=== PATIENT | male | born 1940 | race Caucasian/White ===

== ENCOUNTER 2018-01-10 17:35 | Inpatient (IN) | payer OTHER ==
--- NOTE | 2018-01-10 17:57 | HP ---
CIWA Score Nausea/Vomitin-Mild Nausea/No Vomiting Muscle Tremors: 5 Anxiety: 2 Agitation: 1-Slight > Activity Paroxysmal Sweats: 1-Minimal Palms Moist Orientation: 0-Oriented Tacttile Disturbances: 0-None Auditory Disturbances: 0-None Visual Disturbances: 0-None Headache: 5-Severe CIWA-Ar Total Score: 15 - Admission Criteria OASAS Guidelines: Admission for Medically Managed Detox: Requires at least one of the followin. CIWA greater than 12 2. Seizures within the past 24 hours 3. Delirium tremens within the past 24 hours 4. Hallucinations within the past 24 hours 5. Acute intervention needed for co occurring medical disorder 6. Acute intervention needed for co occurring psychiatric disorder 7. Severe withdrawal that cannot be handled at a lower level of care (continued vomiting, continued diarrhea, abnormal vital signs) requiring intravenous medication and/or fluids 8. Patient presents the following: CIWA greater than 12 Admission Criteria Met: Admission criteria met Admission ROS [facility] Chief Complaint: Pt here for alcohol detox Allergies/Adverse Reactions: Allergies Allergy/AdvReac Type Severity Reaction Status Date / Time No Known Allergies Allergy Verified 01/10/18 18:16 History of Present Illness: Pt states has been living the streets of [place] or in a half-way. Someone called the ambulance and was taken to [facility]. He was given a dose of librium and sent here. Pt states he does not use any illicit substances. Says he gets SSI check at a half-way in [facility]. Uses it for alcohol. Drinks more than a pint a day. Pt does not know of any medical problems and does not take any medications. PT denies allergies. Pt states he is originally from [place], has been living here for 20 years. His family all lives there and has no family here. DUR- no controlled substances KRYSTAL- 0- last drink yesterday and was at [facility] and rec'd librium Utox: Bar pos, rest negative Exam Limitations: Dementia (pt is a poor historian, age 77) - Ebola screening Have you traveled outside of the country in the last 21 days: No (N) Have you had contact with anyone from an Ebola affected area: No Do you have a fever: No - Review of Systems Constitutional: No Symptoms Reported EENT: reports: No Symptoms Reported Respiratory: reports: No Symptoms reported Cardiac: reports: No Symptoms Reported GI: reports: No Symptoms Reported : reports: No Symptoms Reported Musculoskeletal: reports: No Symptoms Reported Integumentary: reports: No Symptoms Reported Neuro: reports: No Symptoms reported Endocrine: reports: No Symptoms Reported Hematology: reports: No Symptoms Reported Psychiatric: reports: No Sypmtoms Reported Patient History - Patient Medical History Hx Anemia: No Hx Asthma: Yes Hx Chronic Obstructive Pulmonary Disease (COPD): No Hx Cancer: No Hx Cardiac Disorders: No Hx Congestive Heart Failure: No Hx Hypertension: No Hx Hypercholesterolemia: No Hx Pacemaker: No HX Cerebrovascular Accident: No Hx Seizures: No Hx Dementia: No Hx Diabetes: No Hx Gastrointestinal Disorders: No Hx Liver Disease: No Hx Genitourinary Disorders: No Hx Sexually Transmitted Disorders: No Hx Renal Disease (ESRD): No Hx Thyroid Disease: No Hx Human Immunodeficiency Virus (HIV): No Hx Hepatitis C: No Hx Depression: No Hx Suicide Attempt: No Hx Bipolar Disorder: No Hx Schizophrenia: No - Patient Surgical History Hx Neurologic Surgery: No Hx Cataract Extraction: No Hx Cardiac Surgery: No Hx Lung Surgery: No Hx Breast Surgery: No Hx Breast Biopsy: No Hx Abdominal Surgery: No Hx Appendectomy: No Hx Cholecystectomy: No Hx Genitourinary Surgery: No Hx Section: No Hx Orthopedic Surgery: No Hx Hysterectomy: No Anesthesia Reaction: No - PPD History Previous Implant?: No - Smoking Cessation Smoking history: Current some day smoker Have you smoked in the past 12 months: Yes Aproximately how many cigarettes per day: 1 Hx Chewing Tobacco Use: No Initiated information on smoking cessation: No 'Breaking Loose' booklet given: 01/10/18 - Substance & Tx. History Substance Use Type: Alcohol Hx Substance Use Treatment: No - Substances Abused Alcohol Route: Oral Frequency: Daily Amount used: LIQUOR- 3 PINTS, BEER- 1 SIX PACK Age of first use: 42 Date of Last Use: 01/10/18 Family Disease History - Family Disease History Family History: Unable to Obtain (unable to obtain- family in [facility]) Admission Physical Exam S - Physical General Appearance: Yes: Disheveled, Moderate Distress, Cachetic, Tremorous HEENTM: Yes: Hearing grossly Normal, Normal ENT Inspection Respiratory: Yes: Within Normal Limits Neck: Yes: Within Normal Limits Cardiology: Yes: Within Normal Limits Abdominal: Yes: Within Normal Limits, Protuberent Genitourinary: Yes: Within Normal Limits, Other (with red macular papular itchy lesions in groin area- c/w tinea) Back: Yes: Within Normal Limits Musculoskeletal: Yes: Other (gait seems unsteady, but pt is able to walk without assistance) Extremities: Yes: Within Normal Limits Neurological: Yes: Other (slow response, does not know much about history)
[2018-01-10] MEDS ORDERED: ACETAMINOPHEN 325 MG TABLET (FP) PO PRN (18:17)
[2018-01-10] MEDS ORDERED: hydrOXYzine PAMOATE 50 MG CAPSULE (FP) PO PRN (18:17)
[2018-01-10] MEDS ORDERED: MENTHOL/PHENOL 1 EACH UD MM PRN (18:17)
[2018-01-10] MEDS ORDERED: MAGNESIUM CITRATE 300 ML BOTTLE PO PRN (18:17)
[2018-01-10] MEDS ORDERED: P-EPHED 60MG/TRIPROLIDI 2.5MG TABLET PO PRN (18:17)
[2018-01-10] MEDS ORDERED: IBUPROFEN 400 MG TABLET (FP) PO PRN (18:17)
[2018-01-10] MEDS ORDERED: MAGNESIUM HYDROX 2400MG/30ML ORAL SUSPENSION 30 ML CUP PO PRN (18:17)
[2018-01-10] MEDS ORDERED: guaiFENesin/D-METHORPHAN HB 10 ML UNIT-DOSE CUPS PO PRN (18:17)
[2018-01-10] MEDS ORDERED: LOPERAMIDE HCL 2 MG CAPSULE PO PRN (18:17)
[2018-01-10] MEDS ORDERED: MAG HYDROX/AL HYDROX/SIMETH 30 ML UNIT-DOSE CUP PO PRN (18:17)
[2018-01-10] MEDS ORDERED: chlordiazePOXIDE HCL 25 MG CAPSULE PO ONE (18:26)
[2018-01-10] MEDS ORDERED: chlordiazePOXIDE HCL 25 MG CAPSULE PO PRN (18:26)
[2018-01-10 18:29] VITALS: BMI 28.3
[2018-01-10] MEDS ORDERED: MELATONIN 5 MG TABLETS PO PRN (22:00)
[2018-01-10] MEDS: CLOTRIMAZOLE/BETAMET DIPROP TOPICAL CREAM 45 GM TUBE TP SCH (22:15)
[2018-01-10] MEDS: THIAMINE HCL 100 MG TABLET (FP) PO SCH (22:15)
[2018-01-10] MEDS: chlordiazePOXIDE HCL 25 MG CAPSULE PO SCH (22:15)
[2018-01-10] MEDS: CLOTRIMAZOLE 1% CREAM 15 GM TUBE TP SCH (22:16)
[2018-01-11] MEDS: chlordiazePOXIDE HCL 25 MG CAPSULE PO SCH ×3 (06:25→17:25)
[2018-01-11 10:30] LABS: HEMATOCRIT 28.6 % (35.4-49); HEMOGLOBIN 10.1 GM/dL (11.7-16.9); MCH 38.3 pg (25.7-33.7); MCHC 35.3 g/dl (32.0-35.9); MEAN CELL VOLUME 108.3 fl (80-96); MEAN PLT VOLUME 9.6 fl (7.5-11.1); PLATELET COUNT 100 K/MM3 (134-434); RBC 2.64 M/mm3 (4.00-5.60); RDW 15.7 % (11.9-15.9); WHITE BLOOD COUNT 5.9 K/mm3 (4.0-10.0)
[2018-01-11] MEDS: CLOTRIMAZOLE/BETAMET DIPROP TOPICAL CREAM 45 GM TUBE TP SCH ×2 (10:53→22:46)
[2018-01-11] MEDS: CLOTRIMAZOLE 1% CREAM 15 GM TUBE TP SCH ×2 (10:53→22:46)
[2018-01-11] MEDS: PRENATAL VITAMINS W/ FOLIC ACID TABLET (FP) PO SCH (10:53)
--- NOTE | 2018-01-11 11:19 | PN ---
S CIWA - CIWA Score Nausea/Vomitin-Mild Nausea/No Vomiting Muscle Tremors: 3 Anxiety: 3 Agitation: 3 Paroxysmal Sweats: No Perspiration Orientation: 0-Oriented Tacttile Disturbances: 0-None Auditory Disturbances: 0-None Visual Disturbances: 0-None Headache: 2-Mild CIWA-Ar Total Score: 12 BHS Progress Note (SOAP) Subjective: PATIENT C/O ANXIETY, RESTLESSNESS, SHAKES, INTERRUPTED SLEEP AND MILD NAUSEA. Objective: 01/11/18 11:17 Laboratory Tests 01/11/18 07:30 WBC 5.9 RBC 2.64 L Hgb 10.1 L Hct 28.6 L MCV 108.3 H MCH 38.3 H MCHC 35.3 RDW 15.7 Plt Count 100 L MPV 9.6 Vital Signs Temperature 96.0 F L 01/11/18 10:04 Pulse Rate 90 01/11/18 10:04 Respiratory Rate 17 01/11/18 10:04 Blood Pressure 104/52 L 01/11/18 10:04 O2 Sat by Pulse Oximetry (%) PE: ALERT AND ORIENTED X 3 PATIENT IRRITABLE AND ANXIOUS EXT FULL ROM, +TREMORS, AMB AD RASHARD ANXIOUS Assessment: 01/11/18 11:18 WITHDRAWAL SX Plan: CONTINUE DETOX ENCOURAGE ORAL FLUIDS ADD ENSURE 120ML PO BID CONTINUE TO MONITOR
[2018-01-11 11:43] LABS: ALBUMIN 2.5 g/dl (3.4-5.0); ALK PHOS 285 U/L (45-117); ANION GAP 14 MMOL/L (8-16); BILIRUBIN,TOTAL 7.3 mg/dL (0.2-1); BLOOD UREA NITROGEN 16 mg/dL (7-18); CHLORIDE 104 mmol/L (98-107); CO2 24 mmol/L (21-32); CREATININE 0.7 mg/dL (0.55-1.3); GLUCOSE,RANDOM 69 mg/dL (74-106); SGOT/AST 290 U/L (15-37); SGPT/ALT 85 U/L (13-61); SODIUM 141 mmol/L (136-145); TOT PROT 5.2 g/dl (6.4-8.2)
[2018-01-11 11:46] LABS: POTASSIUM 2.9 mmol/L (3.5-5.1)
[2018-01-11 11:47] LABS: CALCIUM 6.5 mg/dL (8.5-10.1)
[2018-01-11] MEDS: CALCIUM 500MG/VIT-D 200 UNITS COMBO TABLET (FP) PO SCH ×2 (13:00→22:45)
[2018-01-11] MEDS: POTASSIUM CHLORIDE TABS 20 MEQ TABLET.ER (FP) PO SCH (13:00)
[2018-01-11 21:24] LABS: URINE APPEARANCE TURBID; URINE COLOR RED; URINE GLUCOSE (UA) NEGATIVE (NEGATIVE); URINE KETONE TRACE (NEGATIVE); URINE LEUK ESTERASE NEGATIVE (NEGATIVE); URINE NITRITE NEGATIVE (NEGATIVE); URINE PROTEIN 2+ (NEGATIVE); URINE UROBILINOGEN 4.0 E.U/dl mg/dL (0.2-1.0)
[2018-01-11 21:37] LABS: EPI CELLS RARE /HPF (FEW); URINE BACTERIA RARE /hpf (NONE SEEN); URINE MUCUS RARE
[2018-01-11] MEDS: chlordiazePOXIDE 5 MG CAPSULE PO SCH (22:45)
[2018-01-11] MEDS: THIAMINE HCL 100 MG TABLET (FP) PO SCH (22:46)
[2018-01-11] MEDS ORDERED: chlordiazePOXIDE HCL 25 MG CAPSULE PO SCH ×2 (23:00)
[2018-01-12] MEDS: chlordiazePOXIDE 5 MG CAPSULE PO SCH ×4 (06:28→22:41)
[2018-01-12] MEDS: CLOTRIMAZOLE 1% CREAM 15 GM TUBE TP SCH ×2 (10:55→22:40)
[2018-01-12] MEDS: POTASSIUM CHLORIDE TABS 20 MEQ TABLET.ER (FP) PO SCH (10:55)
[2018-01-12] MEDS: CALCIUM 500MG/VIT-D 200 UNITS COMBO TABLET (FP) PO SCH ×2 (10:55→22:41)
[2018-01-12] MEDS: CLOTRIMAZOLE/BETAMET DIPROP TOPICAL CREAM 45 GM TUBE TP SCH ×2 (10:55→22:40)
[2018-01-12] MEDS: PRENATAL VITAMINS W/ FOLIC ACID TABLET (FP) PO SCH (10:55)
[2018-01-12 11:01] LABS: ALBUMIN 2.3 g/dl (3.4-5.0); ALK PHOS 261 U/L (45-117); ANION GAP 9 MMOL/L (8-16); BILIRUBIN,TOTAL 6.9 mg/dL (0.2-1); BLOOD UREA NITROGEN 11 mg/dL (7-18); CALCIUM 7.1 mg/dL (8.5-10.1); CHLORIDE 104 mmol/L (98-107); CO2 29 mmol/L (21-32); CREATININE 0.8 mg/dL (0.55-1.3); GLUCOSE,RANDOM 97 mg/dL (74-106); POTASSIUM 3.2 mmol/L (3.5-5.1); SGOT/AST 261 U/L (15-37); SGPT/ALT 83 U/L (13-61); SODIUM 142 mmol/L (136-145)
--- NOTE | 2018-01-12 11:24 | PN ---
S CIWA - CIWA Score Nausea/Vomitin-No Nausea/No Vomiting Muscle Tremors: 3 Anxiety: 3 Agitation: 3 Paroxysmal Sweats: No Perspiration Orientation: 0-Oriented Tacttile Disturbances: 0-None Auditory Disturbances: 0-None Visual Disturbances: 0-None Headache: 2-Mild CIWA-Ar Total Score: 11 S Progress Note (SOAP) Subjective: PT SEEN IN BED BUT REPORTS HEADACHE. Objective: 01/12/18 11:22 Vital Signs 01/12/18 01/12/18 01/12/18 03:30 06:26 09:40 Temperature 97.2 F L 98.7 F Pulse Rate 83 86 Respiratory 18 18 18 Rate Blood Pressure 119/61 127/59 L Laboratory Tests 01/10/18 01/11/18 01/11/18 23:20 07:30 07:30 WBC 5.9 RBC 2.64 L Hgb 10.1 L Hct 28.6 L MCV 108.3 H MCH 38.3 H MCHC 35.3 RDW 15.7 Plt Count 100 L MPV 9.6 Sodium 141 Potassium 2.9 L* Chloride 104 Carbon Dioxide 24 Anion Gap 14 BUN 16 Creatinine 0.7 Creat Clearance w eGFR > 60 Random Glucose 69 L Calcium 6.5 L* Total Bilirubin 7.3 H AST 290 H ALT 85 H Alkaline Phosphatase 285 H Total Protein 5.2 L Albumin 2.5 L Urine Color Red Urine Appearance Turbid Urine pH 5.0 Ur Specific [place] 1.024 Urine Protein 2+ H Urine Glucose (UA) Negative Urine Ketones Trace H Urine Blood Negative Urine Nitrite Negative Urine Bilirubin 4.0 Urine Urobilinogen 4.0 e.u/dl Ur Leukocyte Esterase Negative Urine WBC (Auto) 1 Urine RBC (Auto) 1 Ur Epithelial Cells Rare Urine Bacteria Rare Urine Mucus Rare 01/12/18 07:50 WBC RBC Hgb Hct MCV MCH MCHC RDW Plt Count MPV Sodium 142 Potassium 3.2 L Chloride 104 Carbon Dioxide 29 Anion Gap 9 BUN 11 Creatinine 0.8 Creat Clearance w eGFR > 60 Random Glucose 97 Calcium 7.1 L Total Bilirubin 6.9 H AST 261 H ALT 83 H Alkaline Phosphatase 261 H Total Protein 5.0 L Albumin 2.3 L Urine Color Urine Appearance Urine pH Ur Specific [place] Urine Protein Urine Glucose (UA) Urine Ketones Urine Blood Urine Nitrite Urine Bilirubin Urine Urobilinogen Ur Leukocyte Esterase Urine WBC (Auto) Urine RBC (Auto) Ur Epithelial Cells Urine Bacteria Urine Mucus LABS NOTED Assessment: 01/12/18 11:23 WITHDRAWAL SX Plan: CONTINUE DETOX REPEAT CBC, CMP,INR IN AM
[2018-01-12] MEDS: THIAMINE HCL 100 MG TABLET (FP) PO SCH (22:41)
[2018-01-12] MEDS ORDERED: chlordiazePOXIDE 5 MG CAPSULE PO SCH (23:00)
[2018-01-13] MEDS: chlordiazePOXIDE 5 MG CAPSULE PO SCH ×4 (07:19→22:25)
[2018-01-13 10:40] LABS: BASO % 0.8 % (0-2.0); EOS % 2.1 % (0-4.5); HEMATOCRIT 32.2 % (35.4-49); HEMOGLOBIN 10.3 GM/dL (11.7-16.9); LYMPH % 16.4 % (8-40); MCH 35.5 pg (25.7-33.7); MCHC 31.8 g/dl (32.0-35.9); MEAN CELL VOLUME 111.5 fl (80-96); MEAN PLT VOLUME 9.6 fl (7.5-11.1); MONO % 7.5 % (3.8-10.2); NEUT % 73.2 % (42.8-82.8); PLATELET COUNT 98 K/MM3 (134-434); RBC 2.89 M/mm3 (4.00-5.60); RDW 16.2 % (11.9-15.9); WHITE BLOOD COUNT 7.6 K/mm3 (4.0-10.0)
[2018-01-13] MEDS: CLOTRIMAZOLE 1% CREAM 15 GM TUBE TP SCH ×2 (10:45→22:24)
[2018-01-13] MEDS: CALCIUM 500MG/VIT-D 200 UNITS COMBO TABLET (FP) PO SCH ×2 (10:46→22:25)
[2018-01-13] MEDS: PRENATAL VITAMINS W/ FOLIC ACID TABLET (FP) PO SCH (10:46)
[2018-01-13] MEDS: POTASSIUM CHLORIDE TABS 20 MEQ TABLET.ER (FP) PO SCH (10:46)
[2018-01-13] MEDS: CLOTRIMAZOLE/BETAMET DIPROP TOPICAL CREAM 45 GM TUBE TP SCH ×2 (10:46→22:24)
[2018-01-13 10:53] LABS: INR 1.34 (0.83-1.09); PROTHROMBIN TIME (PATIENT) 15.8 SEC (9.7-13.0)
[2018-01-13 10:58] LABS: ALBUMIN 2.4 g/dl (3.4-5.0); ALK PHOS 257 U/L (45-117); ANION GAP 8 MMOL/L (8-16); BLOOD UREA NITROGEN 14 mg/dL (7-18); CALCIUM 7.8 mg/dL (8.5-10.1); CHLORIDE 106 mmol/L (98-107); CO2 29 mmol/L (21-32); CREATININE 0.8 mg/dL (0.55-1.3); GLUCOSE,RANDOM 81 mg/dL (74-106); POTASSIUM 3.8 mmol/L (3.5-5.1); SGOT/AST 216 U/L (15-37); SGPT/ALT 80 U/L (13-61); SODIUM 144 mmol/L (136-145); TOT PROT 5.2 g/dl (6.4-8.2)
[2018-01-13 12:47] LABS: ANISOCYTOSIS 1+; MACROCYTOSIS 1+; PLATELET ESTIMATE DECREASED
--- NOTE | 2018-01-13 14:07 | PN ---
BHS Progress Note (SOAP) Subjective: Patient asleep but aroused easily, refused to speak with medical underwriter Objective: 01/13/18 14:02 Last Vital Signs Temp Pulse Resp BP Pulse Ox 99.7 F H 88 18 121/74 01/13/18 13:19 01/13/18 13:19 01/13/18 13:19 01/13/18 13:19 Laboratory Tests 01/10/18 01/11/18 01/11/18 23:20 07:30 07:30 WBC 5.9 RBC 2.64 L Hgb 10.1 L Hct 28.6 L MCV 108.3 H MCH 38.3 H MCHC 35.3 RDW 15.7 Plt Count 100 L MPV 9.6 Absolute Neuts (auto) Neutrophils % Neutrophils % (Manual) Band Neutrophils % Lymphocytes % Lymphocytes % (Manual) Monocytes % Monocytes % (Manual) Eosinophils % Eosinophils % (Manual) Basophils % Basophils % (Manual) Myelocytes % (Man) Promyelocytes % (Man) Blast Cells % (Manual) Nucleated RBC % Metamyelocytes Hypochromia Platelet Estimate Polychromasia Poikilocytosis Anisocytosis Microcytosis Macrocytosis PT with INR INR Sodium 141 Potassium 2.9 L* Chloride 104 Carbon Dioxide 24 Anion Gap 14 BUN 16 Creatinine 0.7 Creat Clearance w eGFR > 60 Random Glucose 69 L Calcium 6.5 L* Total Bilirubin 7.3 H AST 290 H ALT 85 H Alkaline Phosphatase 285 H Total Protein 5.2 L Albumin 2.5 L Urine Color Red Urine Appearance Turbid Urine pH 5.0 Ur Specific [place] 1.024 Urine Protein 2+ H Urine Glucose (UA) Negative Urine Ketones Trace H Urine Blood Negative Urine Nitrite Negative Urine Bilirubin 4.0 Urine Urobilinogen 4.0 e.u/dl Ur Leukocyte Esterase Negative Urine WBC (Auto) 1 Urine RBC (Auto) 1 Ur Epithelial Cells Rare Urine Bacteria Rare Urine Mucus Rare RPR Titer 01/11/18 01/12/18 01/13/18 07:30 07:50 07:10 WBC 7.6 RBC 2.89 L Hgb 10.3 L Hct 32.2 L MCV 111.5 H MCH 35.5 H MCHC 31.8 L RDW 16.2 H Plt Count 98 L MPV 9.6 Absolute Neuts (auto) 5.6 Neutrophils % 73.2 Neutrophils % (Manual) 62.5 Band Neutrophils % 3.8 Lymphocytes % 16.4 Lymphocytes % (Manual) 19.2 Monocytes % 7.5 Monocytes % (Manual) 8 Eosinophils % 2.1 Eosinophils % (Manual) 3.8 Basophils % 0.8 Basophils % (Manual) 0.0 Myelocytes % (Man) 1 Promyelocytes % (Man) 0 Blast Cells % (Manual) 0 Nucleated RBC % 0 Metamyelocytes 1 Hypochromia 0 Platelet Estimate Decreased Polychromasia 0 Poikilocytosis 0 Anisocytosis 1+ Microcytosis 0 Macrocytosis 1+ PT with INR INR Sodium 142 Potassium 3.2 L Chloride 104 Carbon Dioxide 29 Anion Gap 9 BUN 11 Creatinine 0.8 Creat Clearance w eGFR > 60 Random Glucose 97 Calcium 7.1 L Total Bilirubin 6.9 H AST 261 H ALT 83 H Alkaline Phosphatase 261 H Total Protein 5.0 L Albumin 2.3 L Urine Color Urine Appearance Urine pH Ur Specific [place] Urine Protein Urine Glucose (UA) Urine Ketones Urine Blood Urine Nitrite Urine Bilirubin Urine Urobilinogen Ur Leukocyte Esterase Urine WBC (Auto) Urine RBC (Auto) Ur Epithelial Cells Urine Bacteria Urine Mucus RPR Titer Nonreactive 01/13/18 01/13/18 07:10 07:10 WBC RBC Hgb Hct MCV MCH MCHC RDW Plt Count MPV Absolute Neuts (auto) Neutrophils % Neutrophils % (Manual) Band Neutrophils % Lymphocytes % Lymphocytes % (Manual) Monocytes % Monocytes % (Manual) Eosinophils % Eosinophils % (Manual) Basophils % Basophils % (Manual) Myelocytes % (Man) Promyelocytes % (Man) Blast Cells % (Manual) Nucleated RBC % Metamyelocytes Hypochromia Platelet Estimate Polychromasia Poikilocytosis Anisocytosis Microcytosis Macrocytosis PT with INR 15.80 H INR 1.34 H Sodium 144 Potassium 3.8 Chloride 106 Carbon Dioxide 29 Anion Gap 8 BUN 14 Creatinine 0.8 Creat Clearance w eGFR > 60 Random Glucose 81 Calcium 7.8 L Total Bilirubin 7.0 H AST 216 H ALT 80 H Alkaline Phosphatase 257 H Total Protein 5.2 L Albumin 2.4 L Urine Color Urine Appearance Urine pH Ur Specific [place] Urine Protein Urine Glucose (UA) Urine Ketones Urine Blood Urine Nitrite Urine Bilirubin Urine Urobilinogen Ur Leukocyte Esterase Urine WBC (Auto) Urine RBC (Auto) Ur Epithelial Cells Urine Bacteria Urine Mucus RPR Titer Labs reviewed Assessment: 01/13/18 14:05 Withdrawal symptoms Plan: Continue detox Encouraged PO water intake
[2018-01-13] MEDS: THIAMINE HCL 100 MG TABLET (FP) PO SCH (22:24)
[2018-01-13] MEDS ORDERED: chlordiazePOXIDE HCL 10 MG CAPSULE PO SCH (23:00)
[2018-01-14] MEDS: chlordiazePOXIDE 5 MG CAPSULE PO SCH ×3 (05:15→18:20)
[2018-01-14] MEDS ORDERED: FERROUS SO4 325 MG TABLET (FP) PO SCH (10:15)
[2018-01-14] MEDS: CLOTRIMAZOLE 1% CREAM 15 GM TUBE TP SCH ×2 (10:35→23:12)
[2018-01-14] MEDS: PRENATAL VITAMINS W/ FOLIC ACID TABLET (FP) PO SCH (10:36)
[2018-01-14] MEDS: POTASSIUM CHLORIDE TABS 20 MEQ TABLET.ER (FP) PO SCH (10:36)
[2018-01-14] MEDS: CLOTRIMAZOLE/BETAMET DIPROP TOPICAL CREAM 45 GM TUBE TP SCH ×2 (10:36→23:13)
[2018-01-14] MEDS: CALCIUM 500MG/VIT-D 200 UNITS COMBO TABLET (FP) PO SCH ×2 (10:36→23:13)
--- NOTE | 2018-01-14 11:07 | DS ---
[facility] Detox Discharge Summary Admission Date: 01/10/18 Discharge Date: 01/14/18 - History Present History: Alcohol Dependence - Physical Exam Results Vital Signs: Vital Signs Temperature 97.4 F L 01/14/18 09:20 Pulse Rate 95 H 01/14/18 09:20 Respiratory Rate 18 01/14/18 09:20 Blood Pressure 97/59 L 01/14/18 09:20 O2 Sat by Pulse Oximetry (%) - Treatment Hospital Course: Detox Protocol Followed, Detoxed Safely, Responded well, Discharged Condition Good, Rehab Referral Accepted - Medication Discharge Medications: Ambulatory Orders Unobtainable 01/10/18 - AMA Did Patient Leave Against Medical Advice: No
--- NOTE | 2018-01-14 12:32 | PN ---
S Progress Note (SOAP) Subjective: 77 years old male admitted on 01/10/18 for alcohol withdrawal sx disoriented to place person and time multiple bruises and skin abrasions total ADL's dependent x 2 assistances for hygiene and nutrition and hydration case discussed with counselor for aftercare arrangement that the patient is unable to participate meetings and groups in [place] patient needed to change position while bed ridden to avoid pressure ulcer Objective: 01/14/18 12:38 alcohol withdrawal sx Vital Signs Temperature 97.4 F L 01/14/18 09:20 Pulse Rate 95 H 01/14/18 09:20 Respiratory Rate 18 01/14/18 09:20 Blood Pressure 97/59 L 01/14/18 09:20 O2 Sat by Pulse Oximetry (%) Laboratory Last Values WBC 7.6 K/mm3 (4.0-10.0) 01/13/18 07:10 RBC 2.89 M/mm3 (4.00-5.60) L 01/13/18 07:10 Hgb 10.3 GM/dL (11.7-16.9) L 01/13/18 07:10 Hct 32.2 % (35.4-49) L 01/13/18 07:10 MCV 111.5 fl (80-96) H 01/13/18 07:10 MCH 35.5 pg (25.7-33.7) H 01/13/18 07:10 MCHC 31.8 g/dl (32.0-35.9) L 01/13/18 07:10 RDW 16.2 % (11.9-15.9) H 01/13/18 07:10 Plt Count 98 K/MM3 (134-434) L 01/13/18 07:10 MPV 9.6 fl (7.5-11.1) 01/13/18 07:10 Absolute Neuts (auto) 5.6 K/mm3 (1.5-8.0) 01/13/18 07:10 Neutrophils % 73.2 % (42.8-82.8) 01/13/18 07:10 Neutrophils % (Manual) 62.5 % (42.8-82.8) 01/13/18 07:10 Band Neutrophils % 3.8 % 01/13/18 07:10 Lymphocytes % 16.4 % (8-40) 01/13/18 07:10 Lymphocytes % (Manual) 19.2 % (8-40) 01/13/18 07:10 Monocytes % 7.5 % (3.8-10.2) 01/13/18 07:10 Monocytes % (Manual) 8 % (3.8-10.2) 01/13/18 07:10 Eosinophils % 2.1 % (0-4.5) 01/13/18 07:10 Eosinophils % (Manual) 3.8 % (0-4.5) 01/13/18 07:10 Basophils % 0.8 % (0-2.0) 01/13/18 07:10 Basophils % (Manual) 0.0 % (0-2.0) 01/13/18 07:10 Myelocytes % (Man) 1 % (0-2) 01/13/18 07:10 Promyelocytes % (Man) 0 % (0-2) 01/13/18 07:10 Blast Cells % (Manual) 0 % (0-0) 01/13/18 07:10 Nucleated RBC % 0 % (0-0) 01/13/18 07:10 Metamyelocytes 1 % (0-2) 01/13/18 07:10 Hypochromia 0 01/13/18 07:10 Platelet Estimate Decreased 01/13/18 07:10 Polychromasia 0 01/13/18 07:10 Poikilocytosis 0 01/13/18 07:10 Anisocytosis 1+ 01/13/18 07:10 Microcytosis 0 01/13/18 07:10 Macrocytosis 1+ 01/13/18 07:10 PT with INR 15.80 SEC (9.7-13.0) H 01/13/18 07:10 INR 1.34 (0.83-1.09) H 01/13/18 07:10 Sodium 144 mmol/L (136-145) 01/13/18 07:10 Potassium 3.8 mmol/L (3.5-5.1) 01/13/18 07:10 Chloride 106 mmol/L (98-107) 01/13/18 07:10 Carbon Dioxide 29 mmol/L (21-32) 01/13/18 07:10 Anion Gap 8 MMOL/L (8-16) 01/13/18 07:10 BUN 14 mg/dL (7-18) 01/13/18 07:10 Creatinine 0.8 mg/dL (0.55-1.3) 01/13/18 07:10 Creat Clearance w eGFR > 60 (>60) 01/13/18 07:10 Random Glucose 81 mg/dL (74-106) 01/13/18 07:10 Calcium 7.8 mg/dL (8.5-10.1) L 01/13/18 07:10 Total Bilirubin 7.0 mg/dL (0.2-1) H 01/13/18 07:10 AST 216 U/L (15-37) H 01/13/18 07:10 ALT 80 U/L (13-61) H 01/13/18 07:10 Alkaline Phosphatase 257 U/L (45-117) H 01/13/18 07:10 Total Protein 5.2 g/dl (6.4-8.2) L 01/13/18 07:10 Albumin 2.4 g/dl (3.4-5.0) L 01/13/18 07:10 Urine Color Red 01/10/18 23:20 Urine Appearance Turbid 01/10/18 23:20 Urine pH 5.0 (5.0-8.0) 01/10/18 23:20 Ur Specific [place] 1.024 (1.010-1.035) 01/10/18 23:20 Urine Protein 2+ (NEGATIVE) H 01/10/18 23:20 Urine Glucose (UA) Negative (NEGATIVE) 01/10/18 23:20 Urine Ketones Trace (NEGATIVE) H 01/10/18 23:20 Urine Blood Negative (NEGATIVE) 01/10/18 23:20 Urine Nitrite Negative (NEGATIVE) 01/10/18 23:20 Urine Bilirubin 4.0 (<2.0 mg/dL) 01/10/18 23:20 Urine Urobilinogen 4.0 e.u/dl mg/dL (0.2-1.0) 01/10/18 23:20 Ur Leukocyte Esterase Negative (NEGATIVE) 01/10/18 23:20 Urine WBC (Auto) 1 /hpf (3-5) 01/10/18 23:20 Urine RBC (Auto) 1 /hpf (0-3) 01/10/18 23:20 Ur Epithelial Cells Rare /HPF (FEW) 01/10/18 23:20 Urine Bacteria Rare /hpf (NONE SEEN) 01/10/18 23:20 Urine Mucus Rare 01/10/18 23:20 RPR Titer Nonreactive (NONREACTIVE) 01/11/18 07:30 lab noted Assessment: 01/14/18 12:44 alter mentation Plan: ammonia pending waiting for aftercare arrangement
--- NOTE | 2018-01-14 16:40 | PN ---
S Progress Note Note: patient has elevated bilirubin + ammonia + multiple bruises and skin abrasion urine incontinent disorientation to place person and time ADL's dependent x 2 assistance the telegraphic typewriter installer call the ambulance at [id number] and provide information to Er around [id number] patient admitted on 01/10/18 for alcohol withdrawal sx completed detox regimen alter mental status poor fluid intake
[2018-01-14 19:24] VITALS: BP 138/79; PULSE 106; TEMP 97.8
[2018-01-14] MEDS ORDERED: LACTULOSE 20 GM/30 ML UDC (FOR ORAL USE ONLY) PO SCH (22:00)
[2018-01-14] MEDS ORDERED: ATORVASTATIN CA 40 MG TABLET (FP) PO SCH (22:00)
[2018-01-14] MEDS: THIAMINE HCL 100 MG TABLET (FP) PO SCH (23:13)
--- NOTE | 2018-01-15 08:44 | DS ---
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 - Physical Exam Results Vital Signs: Vital Signs Temperature 97.8 F 01/14/18 17:15 Pulse Rate 106 H 01/14/18 17:15 Respiratory Rate 18 01/14/18 17:15 Blood Pressure 138/79 01/14/18 17:15 O2 Sat by Pulse Oximetry (%) Pertinent Admission Physical Exam Findings: alcohol withdrawal sx Vital Signs Temperature 97.8 F 01/14/18 17:15 Pulse Rate 106 H 01/14/18 17:15 Respiratory Rate 18 01/14/18 17:15 Blood Pressure 138/79 01/14/18 17:15 O2 Sat by Pulse Oximetry (%) Laboratory Last Values WBC 7.6 K/mm3 (4.0-10.0) 01/13/18 07:10 RBC 2.89 M/mm3 (4.00-5.60) L 01/13/18 07:10 Hgb 10.3 GM/dL (11.7-16.9) L 01/13/18 07:10 Hct 32.2 % (35.4-49) L 01/13/18 07:10 MCV 111.5 fl (80-96) H 01/13/18 07:10 MCH 35.5 pg (25.7-33.7) H 01/13/18 07:10 MCHC 31.8 g/dl (32.0-35.9) L 01/13/18 07:10 RDW 16.2 % (11.9-15.9) H 01/13/18 07:10 Plt Count 98 K/MM3 (134-434) L 01/13/18 07:10 MPV 9.6 fl (7.5-11.1) 01/13/18 07:10 Absolute Neuts (auto) 5.6 K/mm3 (1.5-8.0) 01/13/18 07:10 Neutrophils % 73.2 % (42.8-82.8) 01/13/18 07:10 Neutrophils % (Manual) 62.5 % (42.8-82.8) 01/13/18 07:10 Band Neutrophils % 3.8 % 01/13/18 07:10 Lymphocytes % 16.4 % (8-40) 01/13/18 07:10 Lymphocytes % (Manual) 19.2 % (8-40) 01/13/18 07:10 Monocytes % 7.5 % (3.8-10.2) 01/13/18 07:10 Monocytes % (Manual) 8 % (3.8-10.2) 01/13/18 07:10 Eosinophils % 2.1 % (0-4.5) 01/13/18 07:10 Eosinophils % (Manual) 3.8 % (0-4.5) 01/13/18 07:10 Basophils % 0.8 % (0-2.0) 01/13/18 07:10 Basophils % (Manual) 0.0 % (0-2.0) 01/13/18 07:10 Myelocytes % (Man) 1 % (0-2) 01/13/18 07:10 Promyelocytes % (Man) 0 % (0-2) 01/13/18 07:10 Blast Cells % (Manual) 0 % (0-0) 01/13/18 07:10 Nucleated RBC % 0 % (0-0) 01/13/18 07:10 Metamyelocytes 1 % (0-2) 01/13/18 07:10 Hypochromia 0 01/13/18 07:10 Platelet Estimate Decreased 01/13/18 07:10 Polychromasia 0 01/13/18 07:10 Poikilocytosis 0 01/13/18 07:10 Anisocytosis 1+ 01/13/18 07:10 Microcytosis 0 01/13/18 07:10 Macrocytosis 1+ 01/13/18 07:10 PT with INR 15.80 SEC (9.7-13.0) H 01/13/18 07:10 INR 1.34 (0.83-1.09) H 01/13/18 07:10 Sodium 144 mmol/L (136-145) 01/13/18 07:10 Potassium 3.8 mmol/L (3.5-5.1) 01/13/18 07:10 Chloride 106 mmol/L (98-107) 01/13/18 07:10 Carbon Dioxide 29 mmol/L (21-32) 01/13/18 07:10 Anion Gap 8 MMOL/L (8-16) 01/13/18 07:10 BUN 14 mg/dL (7-18) 01/13/18 07:10 Creatinine 0.8 mg/dL (0.55-1.3) 01/13/18 07:10 Creat Clearance w eGFR > 60 (>60) 01/13/18 07:10 Random Glucose 81 mg/dL (74-106) 01/13/18 07:10 Calcium 7.8 mg/dL (8.5-10.1) L 01/13/18 07:10 Total Bilirubin 7.0 mg/dL (0.2-1) H 01/13/18 07:10 AST 216 U/L (15-37) H 01/13/18 07:10 ALT 80 U/L (13-61) H 01/13/18 07:10 Alkaline Phosphatase 257 U/L (45-117) H 01/13/18 07:10 Ammonia 64.40 umol/L (11-32) H 01/14/18 11:20 Total Protein 5.2 g/dl (6.4-8.2) L 01/13/18 07:10 Albumin 2.4 g/dl (3.4-5.0) L 01/13/18 07:10 Urine Color Red 01/10/18 23:20 Urine Appearance Turbid 01/10/18 23:20 Urine pH 5.0 (5.0-8.0) 01/10/18 23:20 Ur Specific [place] 1.024 (1.010-1.035) 01/10/18 23:20 Urine Protein 2+ (NEGATIVE) H 01/10/18 23:20 Urine Glucose (UA) Negative (NEGATIVE) 01/10/18 23:20 Urine Ketones Trace (NEGATIVE) H 01/10/18 23:20 Urine Blood Negative (NEGATIVE) 01/10/18 23:20 Urine Nitrite Negative (NEGATIVE) 01/10/18 23:20 Urine Bilirubin 4.0 (<2.0 mg/dL) 01/10/18 23:20 Urine Urobilinogen 4.0 e.u/dl mg/dL (0.2-1.0) 01/10/18 23:20 Ur Leukocyte Esterase Negative (NEGATIVE) 01/10/18 23:20 Urine WBC (Auto) 1 /hpf (3-5) 01/10/18 23:20 Urine RBC (Auto) 1 /hpf (0-3) 01/10/18 23:20 Ur Epithelial Cells Rare /HPF (FEW) 01/10/18 23:20 Urine Bacteria Rare /hpf (NONE SEEN) 01/10/18 23:20 Urine Mucus Rare 01/10/18 23:20 RPR Titer Nonreactive (NONREACTIVE) 01/11/18 07:30 lab noted ER evaluation - Treatment Hospital Course: Detox Protocol Followed, Detoxed Safely, Responded well, Discharged Condition Good, Rehab Referral Accepted Patient has Accepted a Rehab Referral to: ER evaluation - Medication Discharge Medications: Ambulatory Orders Allopurinol [Zyloprim -] 300 mg PO DAILY 01/14/18 Amlodipine Besylate [Norvasc -] 5 mg PO DAILY 01/14/18 Aspirin 81 mg PO DAILY 01/14/18 Atorvastatin Ca [Lipitor] 40 mg PO HS 01/14/18 Labetalol HCl 100 mg PO BID 01/14/18 - Diagnosis (1) Alcoholic hepatitis Status: Chronic Qualifiers: Ascites presence: unspecified Qualified Code(s): K70.10 - Alcoholic hepatitis without ascites (2) Self-care deficit for feeding, bathing, and toileting Status: Acute (3) Alcohol dependence with uncomplicated withdrawal Status: Acute (4) Nicotine abuse Status: Acute (5) Gout Status: Chronic Qualifiers: Gout site: unspecified site Gout etiology: idiopathic Chronicity: chronic Presence of tophus: without tophus Qualified Code(s): M1A.00X0 - Idiopathic chronic gout, unspecified site, without tophus (tophi) (6) Portal hypertension syndrome Status: Chronic (7) Hyperlipidemia Status: Chronic Qualifiers: Hyperlipidemia type: pure hypercholesterolemia Qualified Code(s): E78.00 - Pure hypercholesterolemia, unspecified; E78.0 - Pure hypercholesterolemia - AMA Did Patient Leave Against Medical Advice: No
[2018-01-15] MEDS ORDERED: ALLOPURINOL 300 MG TABLET (FP) PO SCH (10:00)
== END 2018-01-14 23:55 | disposition short-term general hospital (02) | DRG 897 ==
LOC: YASAS 17:35 → Y3N 19:55
PROC: HZ2ZZZZ Detoxification Services for Substance Abuse Treatment (ICD-10-PCS; principal; 2018-01-10)
DX: F10.230 Alcohol dependence with withdrawal, uncomplicated (principal); F03.90 Unspecified dementia, unspecified severity, without behavioral disturbance, psychotic disturbance, mood disturbance, and anxiety; B35.6 Tinea cruris; Z72.0 Tobacco use
CPT/HCPCS: 36415; 80053; 81003; 81015; 82140; 85025; 85027; 85610; 86593

== ENCOUNTER 2018-01-14 17:36 | Inpatient (IN) | payer OTHER ==
--- NOTE | 2018-01-14 17:44 | PDOC ---
History of Present Illness - General Stated Complaint: ABNORMAL LABS/ALT MENTAL STATUS Time Seen by Provider: 01/14/18 17:44 - History of Present Illness Initial Comments: 01/14/18 17:50 Mr. Soto is a 77 yo male w/ pmh of alcohol abuse who presents from [facility] for complaints of altered mental status from baseline per staff. Per EMS they were unable to establish a baseline beyond that patient was altered. Patient also reportedly had low potassium value. Patient minimally responsive upon presentation. Unable to edwards further history. Past History - Past Medical History Allergies/Adverse Reactions: Allergies Allergy/AdvReac Type Severity Reaction Status Date / Time No Known Allergies Allergy Verified 01/10/18 18:16 Home Medications: Ambulatory Orders Allopurinol [Zyloprim -] 300 mg PO DAILY 01/14/18 Amlodipine Besylate [Norvasc -] 5 mg PO DAILY 01/14/18 Aspirin 81 mg PO DAILY 01/14/18 Atorvastatin Ca [Lipitor] 40 mg PO HS 01/14/18 Labetalol HCl 100 mg PO BID 01/14/18 Anemia: No Asthma: Yes Cancer: No Cardiac Disorders: No CVA: No COPD: No CHF: No Dementia: No Diabetes: No GI Disorders: No Disorders: No HTN: No Hypercholesterolemia: No Kidney Stones: No Liver Disease: No Seizures: No Thyroid Disease: No - Surgical History Abdominal Surgery: No Appendectomy: No Cardiac Surgery: No Cholecystectomy: No Lung Surgery: No Neurologic Surgery: No Orthopedic Surgery: No - Reproductive History Testicular Surgery: No - Suicide/Smoking/Psychosocial Hx Smoking History: Current some day smoker Have you smoked in the past 12 months: Yes Number of Cigarettes Smoked Daily: 1 'Breaking Loose' booklet given: 01/10/18 Substance Use Type: Alcohol Hx Substance Use Treatment: No Review of Systems - Review of Systems Comments:: 01/14/18 18:03 Unable to obtain further. *Physical Exam - Physical Exam Comments: 01/14/18 18:05 GENERAL: +Patient minimally responsive; withdraws from pain in all 4 extremities. HEAD: No signs of trauma, normocephalic, atraumatic EYES: +Sclera icteric. PERRLA, EOMI, conjunctiva clear ENT: Auricles normal inspection, hearing grossly normal, nares patent, oropharynx clear without exudates. Moist mucosa NECK: Normal ROM, supple, no lymphadenopathy, JVD, or masses LUNGS: No distress, speaks full sentences, clear to auscultation bilaterally HEART: Regular rate and rhythm, normal S1 and S2, no murmurs, rubs or gallops, peripheral pulses normal and equal bilaterally. ABDOMEN: +Generalized TTP. Soft, normoactive bowel sounds. No guarding, no rebound. No masses EXTREMITIES: Normal inspection, Normal range of motion, no edema. No clubbing or cyanosis. NEUROLOGICAL: +Unable to assess further. SKIN: +Patient yellow appearing. Skin warm, dry, normal turgor, no rashes or lesions noted. ED Treatment Course - LABORATORY CBC & Chemistry Diagram: 01/14/18 18:10 01/14/18 18:10 Medical Decision Making - Medical Decision Making 01/14/18 18:36 Mr. Soto is a 77 yo male w/ pmh as described who presents for evaluation of AMS. According workup started with labs, CT Head, and fluids. 01/14/18 19:56 Patient labs significant for mildly elevated ammonia as below in addition to elevated bili and AST/ALT consistent w/ alcohol abuse. Also low magnesium to 1.2 ; mg sulfate ordered for repletion. Head CT negative. Chest / abdomen / pelvis ordered for further evaluation of AMS for r/o SBP. 01/14/18 22:[address] concerning for bilateral pleural effusions w/ possible pancreatitis as well as probable hepatic cirrhosis. Zosyn started for prophylaxis. Patient awake and requesting water in clear voice. Admitting patient for further evaluation / pancreatitis care. Laboratory Results - last 24 hr 01/14/18 01/14/18 01/14/18 18:10 18:10 18:10 WBC 8.7 RBC 3.17 L Hgb 12.0 Hct 35.1 L MCV 110.7 H MCH 37.7 H MCHC 34.1 RDW 16.9 H Plt Count 136 D MPV 9.5 Absolute Neuts (auto) 6.7 Neutrophils % 76.7 Neutrophils % (Manual) 68.0 Band Neutrophils % 6.0 Lymphocytes % 12.0 D Lymphocytes % (Manual) 15.0 D Monocytes % 8.1 Monocytes % (Manual) 6 Eosinophils % 2.6 Eosinophils % (Manual) 2.0 Basophils % 0.6 Basophils % (Manual) 0.0 Myelocytes % (Man) 1 Nucleated RBC % 0 Metamyelocytes 2 D Platelet Estimate Adequate PT with INR INR PTT (Actin FS) Sodium 141 Potassium 4.8 Chloride 105 Carbon Dioxide 29 Anion Gap 8 BUN 12 Creatinine 1.0 Creat Clearance w eGFR > 60 Random Glucose 84 Lactic Acid Calcium 8.8 Magnesium Total Bilirubin 9.3 H AST 198 H ALT 89 H Alkaline Phosphatase 296 H Ammonia Total Protein 6.5 Albumin 2.8 L Urine Color Urine Appearance Urine pH Ur Specific [place] Urine Protein Urine Glucose (UA) Urine Ketones Urine Blood Urine Nitrite Urine Bilirubin Urine Urobilinogen Ur Leukocyte Esterase Urine WBC (Auto) Urine RBC (Auto) Urine Mucus Salicylates < 1.7 L Opiates Screen Negative Methadone Screen Negative Acetaminophen < 2.0 L Barbiturate Screen Negative Phencyclidine Screen Negative Ur Amphetamines Screen Negative MDMA (Ecstasy) Screen Negative Benzodiazepines Screen Positive A* Cocaine Screen Negative U Marijuana (THC) Screen Negative Alcohol, Quantitative Blood Type Antibody Screen 01/14/18 01/14/18 01/14/18 18:10 18:10 18:10 WBC RBC Hgb Hct MCV MCH MCHC RDW Plt Count MPV Absolute Neuts (auto) Neutrophils % Neutrophils % (Manual) Band Neutrophils % Lymphocytes % Lymphocytes % (Manual) Monocytes % Monocytes % (Manual) Eosinophils % Eosinophils % (Manual) Basophils % Basophils % (Manual) Myelocytes % (Man) Nucleated RBC % Metamyelocytes Platelet Estimate PT with INR 14.60 H INR 1.23 H PTT (Actin FS) 36.1 Sodium Potassium Chloride Carbon Dioxide Anion Gap BUN Creatinine Creat Clearance w eGFR Random Glucose Lactic Acid Calcium Magnesium 1.2 L Total Bilirubin AST ALT Alkaline Phosphatase Ammonia Total Protein Albumin Urine Color Urine Appearance Urine pH Ur Specific [place] Urine Protein Urine Glucose (UA) Urine Ketones Urine Blood Urine Nitrite Urine Bilirubin Urine Urobilinogen Ur Leukocyte Esterase Urine WBC (Auto) Urine RBC (Auto) Urine Mucus Salicylates Opiates Screen Methadone Screen Acetaminophen Barbiturate Screen Phencyclidine Screen Ur Amphetamines Screen MDMA (Ecstasy) Screen Benzodiazepines Screen Cocaine Screen U Marijuana (THC) Screen Alcohol, Quantitative Blood Type O POSITIVE Antibody Screen Negative 01/14/18 01/14/18 01/14/18 18:10 18:10 18:36 WBC RBC Hgb Hct MCV MCH MCHC RDW Plt Count MPV Absolute Neuts (auto) Neutrophils % Neutrophils % (Manual) Band Neutrophils % Lymphocytes % Lymphocytes % (Manual) Monocytes % Monocytes % (Manual) Eosinophils % Eosinophils % (Manual) Basophils % Basophils % (Manual) Myelocytes % (Man) Nucleated RBC % Metamyelocytes Platelet Estimate PT with INR INR PTT (Actin FS) Sodium Potassium Chloride Carbon Dioxide Anion Gap BUN Creatinine Creat Clearance w eGFR Random Glucose Lactic Acid Calcium Magnesium Total Bilirubin AST ALT Alkaline Phosphatase Ammonia 37.35 H Total Protein Albumin Urine Color [place] Urine Appearance Clear Urine pH 8.0 D Ur Specific [place] 1.015 Urine Protein 1+ H Urine Glucose (UA) Negative Urine Ketones Negative Urine Blood Negative Urine Nitrite Negative Urine Bilirubin 2.0 Urine Urobilinogen 4.0 e.u/dl Ur Leukocyte Esterase Negative Urine WBC (Auto) 1 Urine RBC (Auto) None Urine Mucus Rare Salicylates Opiates Screen Methadone Screen Acetaminophen Barbiturate Screen Phencyclidine Screen Ur Amphetamines Screen MDMA (Ecstasy) Screen Benzodiazepines Screen Cocaine Screen U Marijuana (THC) Screen Alcohol, Quantitative < 3.0 Blood Type Antibody Screen 01/14/18 18:56 WBC RBC Hgb Hct MCV MCH MCHC RDW Plt Count MPV Absolute Neuts (auto) Neutrophils % Neutrophils % (Manual) Band Neutrophils % Lymphocytes % Lymphocytes % (Manual) Monocytes % Monocytes % (Manual) Eosinophils % Eosinophils % (Manual) Basophils % Basophils % (Manual) Myelocytes % (Man) Nucleated RBC % Metamyelocytes Platelet Estimate PT with INR INR PTT (Actin FS) Sodium Potassium Chloride Carbon Dioxide Anion Gap BUN Creatinine Creat Clearance w eGFR Random Glucose Lactic Acid 1.0 Calcium Magnesium Total Bilirubin AST ALT Alkaline Phosphatase Ammonia Total Protein Albumin Urine Color Urine Appearance Urine pH Ur Specific [place] Urine Protein Urine Glucose (UA) Urine Ketones Urine Blood Urine Nitrite Urine Bilirubin Urine Urobilinogen Ur Leukocyte Esterase Urine WBC (Auto) Urine RBC (Auto) Urine Mucus Salicylates Opiates Screen Methadone Screen Acetaminophen Barbiturate Screen Phencyclidine Screen Ur Amphetamines Screen MDMA (Ecstasy) Screen Benzodiazepines Screen Cocaine Screen U Marijuana (THC) Screen Alcohol, Quantitative Blood Type Antibody Screen *DC/Admit/Observation/Transfer Diagnosis at time of Disposition: Alcohol use disorder Pancreatitis Qualifiers: Chronicity: acute Pancreatitis type: unspecified pancreatitis type Acute pancreatitis complication: unspecified Qualified Code(s): K85.90 - Acute pancreatitis without necrosis or infection, unspecified - Discharge Dispostion Decision to Admit order: Yes - Referrals Referrals: Olga Mendoza MD [Primary Care Provider] - - Patient Instructions - Post Discharge Activity
[2018-01-14] MEDS ORDERED: SODIUM CHLORIDE 1,000 ML IV STA (17:59)
[2018-01-14 18:39] LABS: BASO % 0.6 % (0-2.0); EOS % 2.6 % (0-4.5); HEMATOCRIT 35.1 % (35.4-49); MCH 37.7 pg (25.7-33.7); MCHC 34.1 g/dl (32.0-35.9); MEAN CELL VOLUME 110.7 fl (80-96); MEAN PLT VOLUME 9.5 fl (7.5-11.1); MONO % 8.1 % (3.8-10.2); NEUT % 76.7 % (42.8-82.8); PLATELET COUNT 136 K/MM3 (134-434); RBC 3.17 M/mm3 (4.00-5.60); RDW 16.9 % (11.9-15.9); WHITE BLOOD COUNT 8.7 K/mm3 (4.0-10.0)
[2018-01-14 18:44] LABS: URINE APPEARANCE CLEAR; URINE COLOR AMBER; URINE GLUCOSE (UA) NEGATIVE (NEGATIVE); URINE KETONE NEGATIVE (NEGATIVE); URINE LEUK ESTERASE NEGATIVE (NEGATIVE); URINE NITRITE NEGATIVE (NEGATIVE); URINE PROTEIN 1+ (NEGATIVE); URINE UROBILINOGEN 4.0 E.U/dl mg/dL (0.2-1.0)
--- NOTE | 2018-01-14 18:44 | PDOC ---
Attending Attestation - HPI HPI: 01/14/18 18:44 77 yo male BIBA from [facility] with a pmh EtOH abuse who presents with altered mental status for 3 days. Patient minimally responsive at presentation, unable to obtain history due to current clinical status. <Octaviano John - Last Filed: 01/14/18 18:44> - Resident Resident Name: Dipesh Hartman - ED Attending Attestation I have performed the following: I have examined & evaluated the patient, The case was reviewed & discussed with the resident, I agree w/resident's findings & plan, Exceptions are as noted - Physicial Exam PE: GENERAL: Awake, alert, in no acute distress. Confused. Not answering questions. HEAD: No signs of trauma EYES: PERRLA, EOMI, sclera anicteric, conjunctiva clear ENT: Auricles normal inspection, hearing grossly normal, nares patent, oropharynx clear without exudates. Moist mucosa NECK: Normal ROM, supple, no lymphadenopathy, JVD, or masses LUNGS: Breath sounds equal, clear to auscultation bilaterally. No wheezes, and no crackles HEART: Regular rate and rhythm, normal S1 and S2, no murmurs, rubs or gallops ABDOMEN: Soft, nontender, normoactive bowel sounds. No guarding, no rebound. No masses EXTREMITIES: Normal range of motion, no edema. No clubbing or cyanosis. No cords, erythema, or tenderness NEUROLOGICAL: Cranial nerves II through XII grossly intact. Moving all extremities, sensation intact. SKIN: Warm, Dry, normal turgor, no rashes. +Jaundice. - Medical Decision Making Pt presents with AMS, found to have temp 99.9, jaundice. Will obtain labs including ammonia. CTH, CXR, EKG. Admit. <Bella Dailey - Last Filed: 01/17/18 09:07> Attestations - Attestations Documentation prepared by Octaviano John, acting as certified medical transcriptionist for Bella Dailey MD. <Octaviano John - Last Filed: 01/14/18 18:44>
[2018-01-14 19:02] LABS: COCAINE, UR NEGATIVE ng/ml (CUTOFF=300); METHADONE, UR NEGATIVE ng/ml (CUTOFF=300); OPIATES, URI NEGATIVE ng/ml (CUTOFF=300); PHENCYCLIDINE,URINE NEGATIVE ng/ml (CUTOFF=25); URINE AMPHETAMINES NEGATIVE ng/ml (CUTOFF=500); URINE BARBITURATES NEGATIVE ng/ml (CUTOFF=200)
[2018-01-14 19:03] LABS: URINE MUCUS RARE
[2018-01-14 19:10] LABS: URINE BENZODIAZEPINES POSITIVE ng/ml (CUTOFF=200)
[2018-01-14 19:14] LABS: INR 1.23 (0.83-1.09); PROTHROMBIN TIME (PATIENT) 14.6 SEC (9.7-13.0)
[2018-01-14 19:16] LABS: ACTIVATED PTT 36.1 SECONDS (25.2-36.5)
[2018-01-14 19:21] LABS: MAGNESIUM 1.2 mg/dL (1.8-2.4)
[2018-01-14 19:44] LABS: ALBUMIN 2.8 g/dl (3.4-5.0); ALK PHOS 296 U/L (45-117); ANION GAP 8 MMOL/L (8-16); BILIRUBIN,TOTAL 9.3 mg/dL (0.2-1); BLOOD UREA NITROGEN 12 mg/dL (7-18); CALCIUM 8.8 mg/dL (8.5-10.1); CHLORIDE 105 mmol/L (98-107); CO2 29 mmol/L (21-32); GLUCOSE,RANDOM 84 mg/dL (74-106); POTASSIUM 4.8 mmol/L (3.5-5.1); SGOT/AST 198 U/L (15-37); SGPT/ALT 89 U/L (13-61); SODIUM 141 mmol/L (136-145); TOT PROT 6.5 g/dl (6.4-8.2)
[2018-01-14 19:55] LABS: PLATELET ESTIMATE ADEQUATE
[2018-01-14] MEDS ORDERED: MAGNESIUM SULF 50% (8.12 MEQ/2 ML-1 GM VIAL) IVPB ONE (20:03)
[2018-01-14] MEDS ORDERED: MAGNESIUM 1GM/D5W - 2 GM/200 ML IVPB IVPB ONE (20:47)
[2018-01-14] MEDS ORDERED: PIPERACILLIN/TAZOB 3.375 GM 3.375 GM in DEXTROSE 5%-WATER - 50 ML IVPB ONE (22:17)
[2018-01-14] MEDS ORDERED: VANCOMYCIN 1 GRAM (PRE-DOCKED) 1,000 MG/250 ML BAG IVPB ONE (22:17)
[2018-01-14] MEDS ORDERED: PIPERACILLIN/TAZOB 3.375 GM 3.375 GM/50 ML BAG IVPB ONE (22:29)
[2018-01-14 22:38] LABS: LIPASE 54 U/L (73-393)
--- NOTE | 2018-01-14 22:44 | PN ---
Teaching Attending Note Name of Resident: Roly Ace ATTENDING PHYSICIAN STATEMENT I saw and evaluated the patient. I reviewed the resident's note and discussed the case with the resident. I agree with the resident's findings and plan as documented. SUBJECTIVE: Patient is a 77 year old man with PMH of Alcohol abuse, hypertension, hyperlipidemia, gout and Tobacco use who presents from [facility] for complaints of altered mental status from baseline per staff. Per EMS they were unable to establish a baseline beyond that patient was altered. Patient also reportedly had low potassium value. Patient minimally responsive upon presentation. OBJECTIVE: Somnolent by arousable Vital Signs Period Temp Pulse Resp BP Sys/Glynn Pulse Ox Last 24 Hr 99.9 F 85 18 120/80 100 HEENT: Sclera icterus, eye redness or discharge, PERRLA, EOMI. Normocephalic, atraumatic. External ears are normal. No nasal discharge. Neck: Supple, nontender. No palpable adenopathy or thyromegaly. No JVD Chest: Good effort. Clear to auscultation and percussion. Heart: Regular. No S3, rub or murmur Abdomen: Not distended, soft, tender upper abdomen and no HSM. No rebound or guarding. Normoactive bowel sounds. Ext: Peripheral pulses intact. No leg edema. Skin: Warm and dry. Jaundiced. No petechiae, rash or ecchymosis. Neuro: Somnolent. Tremulous. Oriented to person. CN 2-12 grossly intact. Sensation grossly intact in all four extremities and DTR are symmetric. Current Medications Generic Name Dose Route Start Last Admin Trade Name Pipe PRN Reason Stop Dose Admin Piperacillin Sod/Tazobactam 50 mls @ 100 mls/hr 01/14/18 22:17 01/14/18 22:30 Sod 3.375 gm/ Dextrose IVPB 01/14/18 22:46 100 mls/hr ONCE ONE Administration Protocol Home Medications Medication Instructions Recorded Allopurinol [Zyloprim -] 300 mg PO DAILY 01/14/18 Amlodipine Besylate [Norvasc -] 5 mg PO DAILY 01/14/18 Aspirin 81 mg PO DAILY 01/14/18 Atorvastatin Ca [Lipitor] 40 mg PO HS 01/14/18 Labetalol HCl 100 mg PO BID 01/14/18 Abnormal Lab Results 01/14/18 01/14/18 01/14/18 18:10 18:10 18:10 RBC 3.17 L Hct 35.1 L MCV 110.7 H MCH 37.7 H RDW 16.9 H PT with INR INR Magnesium Total Bilirubin 9.3 H AST 198 H ALT 89 H Alkaline Phosphatase 296 H Ammonia Albumin 2.8 L Lipase 54 L Urine Protein Salicylates < 1.7 L Acetaminophen < 2.0 L Benzodiazepines Screen Positive A* 01/14/18 01/14/18 01/14/18 18:10 18:10 18:10 RBC Hct MCV MCH RDW PT with INR 14.60 H INR 1.23 H Magnesium 1.2 L Total Bilirubin AST ALT Alkaline Phosphatase Ammonia 37.35 H Albumin Lipase Urine Protein Salicylates Acetaminophen Benzodiazepines Screen 01/14/18 18:36 RBC Hct MCV MCH RDW PT with INR INR Magnesium Total Bilirubin AST ALT Alkaline Phosphatase Ammonia Albumin Lipase Urine Protein 1+ H Salicylates Acetaminophen Benzodiazepines Screen ASSESSMENT AND PLAN: 1. Pancreatitis?/Alcoholic Hepatitis - Patient has CT and clinical features of pancreatitis though lipase is normal. Will continue pain control, liberal IV lactated ringers and trend LFTs. Will get LFTs, watch out for hepatic encephalopathy and obtain MRCP. Will consult Pulmonary for MATTHEW nodule and effusion noted on CT scan. 2. Hypoalbuminemia - Possibly due to combined effects of malnutrition, ? proteinuria and inflammation associated with comorbid chronic conditions. Will ensure adequate dietary protein intake and also consult back closer. 3. Tobacco Use We will provide patient all the necessary assistance to facilitate smoking cessation and prescribe Nicotine patch. 4. Alcohol abuse - Implement [facility], fall and aspiration precautions. Give IV MgSO4. Treat with thiamine and folic acid and monitor electrolytes (Ca,Mg,K,P). Check Vitamin B12 and folate levels. Crumb Packer patient about abstaining from alcohol and refer to alcohol detox upon discharge. 5. DVT prophylaxis - Lovenox 40 mg SQ q 24 hours. 6. Advance directives - Full code
[2018-01-14] MEDS ORDERED: LACTATED RINGERS SOLUTION 1,000 ML/1,000 ML INFUS.BAG IV SCH (23:15)
[2018-01-14 23:16] LABS: BILIRUBIN,DIRECT 7.1 mg/dL (0.0-0.2)
[2018-01-15] LABS: BASO % 0.9 % (0-2.0); EOS % 2.1 % (0-4.5); HEMOGLOBIN 11.2 GM/dL (11.7-16.9); LYMPH % 12.2 % (8-40); MEAN PLT VOLUME 9.7 fl (7.5-11.1); MONO % 8.7 % (3.8-10.2); NEUT % 76.1 % (42.8-82.8); PLATELET COUNT 113 K/MM3 (134-434); RBC 2.94 M/mm3 (4.00-5.60); RDW 17.1 % (11.9-15.9); WHITE BLOOD COUNT 8.6 K/mm3 (4.0-10.0)
--- NOTE | 2018-01-15 00:05 | HP ---
CHIEF COMPLAINT: AMS PCP: HISTORY OF PRESENT ILLNESS: Patient is a 77 y/o M w/ PMHx EtOH abuse, also HTN HLD gout based on reported home medications, began detox at [facility] 3 days prior to admission. Sent to [facility] ED from [facility] d/t AMS today. In ED, patient has fluctuating consciousness. Broad w/u performed. Initial labs demonstrate LFT elevation suggestive of alcoholic hepatitis, total bilirubin elevation (fractionation pending), lipase 54, Mg 1.2, no kidney injury, UA negative, tox screen negative for EtOH and positive for benzodiazepine. CT head unremarkable. CT chest and CT a/p demonstrate pulmonary and paravertebral nodules, b/l interstitial thickening , mild right basilar opacity, mild peripancreatic soft tissue edema suggestive of pancreatitis, hepatic steatosis and probable cirrhosis. ED course: 1L NS bolus, vanc/zosyn, 2g IV Mg ER course was notable for: (1) nl lipase but CT abd suggestive of pancreatitis (2) AST:ALT 2:1 (3) T bili 9.3 Recent Travel: PAST MEDICAL HISTORY: As per HPI PAST SURGICAL HISTORY: unknown, patient cannot provide further history Social History: Smoking: Alcohol: Drugs: Family History: Allergies No Known Allergies Allergy (Verified 01/10/18 18:16) HOME MEDICATIONS: Home Medications Medication Instructions Recorded Allopurinol [Zyloprim -] 300 mg PO DAILY 01/14/18 Amlodipine Besylate [Norvasc -] 5 mg PO DAILY 01/14/18 Aspirin 81 mg PO DAILY 01/14/18 Atorvastatin Ca [Lipitor] 40 mg PO HS 01/14/18 Labetalol HCl 100 mg PO BID 01/14/18 REVIEW OF SYSTEMS As per [facility] PHYSICAL EXAMINATION Vital Signs - 24 hr 01/14/18 17:58 Temperature 99.9 F H Pulse Rate 85 Respiratory 18 Rate Blood Pressure 120/80 O2 Sat by Pulse 100 Oximetry (%) GENERAL: Sluggish, tremulous fluctuating consciousness, diaphoretic, oriented only to person, reports auditory hallucinations HEAD: NC/AT EYES: PERRLA, EOMI, +scleral icterus EARS, NOSE, THROAT: MMM NECK: no LAD, no JVD LUNGS: loud upper airway wheezing, no adventitious lower airway sounds HEART: RRR no m/r/g ABDOMEN: +bs, mildly distended, significant diffuse tenderness EXTREMITIES: 2+ pulses, warm, well-perfused. No calf tenderness. No peripheral edema. NEUROLOGICAL: evaluation limited by patient compliance but no focal deficits appreciated; significant resting tremor with upper extremities in flexion PSYCHIATRIC: fluctuating consciousness, limited communication SKIN: diffuse jaundice Laboratory Results - last 24 hr 01/14/18 01/14/18 01/14/18 18:10 18:10 18:10 WBC 8.7 RBC 3.17 L Hgb 12.0 Hct 35.1 L MCV 110.7 H MCH 37.7 H MCHC 34.1 RDW 16.9 H Plt Count 136 D MPV 9.5 Absolute Neuts (auto) 6.7 Neutrophils % 76.7 Neutrophils % (Manual) 68.0 Band Neutrophils % 6.0 Lymphocytes % 12.0 D Lymphocytes % (Manual) 15.0 D Monocytes % 8.1 Monocytes % (Manual) 6 Eosinophils % 2.6 Eosinophils % (Manual) 2.0 Basophils % 0.6 Basophils % (Manual) 0.0 Myelocytes % (Man) 1 Nucleated RBC % 0 Metamyelocytes 2 D Platelet Estimate Adequate PT with INR INR PTT (Actin FS) Sodium 141 Potassium 4.8 Chloride 105 Carbon Dioxide 29 Anion Gap 8 BUN 12 Creatinine 1.0 Creat Clearance w eGFR > 60 Random Glucose 84 Lactic Acid Calcium 8.8 Magnesium Total Bilirubin 9.3 H Direct Bilirubin AST 198 H ALT 89 H Alkaline Phosphatase 296 H Ammonia Total Protein 6.5 Albumin 2.8 L Lipase 54 L Urine Color Urine Appearance Urine pH Ur Specific [place] Urine Protein Urine Glucose (UA) Urine Ketones Urine Blood Urine Nitrite Urine Bilirubin Urine Urobilinogen Ur Leukocyte Esterase Urine WBC (Auto) Urine RBC (Auto) Urine Mucus Salicylates < 1.7 L Opiates Screen Negative Methadone Screen Negative Acetaminophen < 2.0 L Barbiturate Screen Negative Phencyclidine Screen Negative Ur Amphetamines Screen Negative MDMA (Ecstasy) Screen Negative Benzodiazepines Screen Positive A* Cocaine Screen Negative U Marijuana (THC) Screen Negative Alcohol, Quantitative Blood Type Antibody Screen 01/14/18 01/14/18 01/14/18 18:10 18:10 18:10 WBC RBC Hgb Hct MCV MCH MCHC RDW Plt Count MPV Absolute Neuts (auto) Neutrophils % Neutrophils % (Manual) Band Neutrophils % Lymphocytes % Lymphocytes % (Manual) Monocytes % Monocytes % (Manual) Eosinophils % Eosinophils % (Manual) Basophils % Basophils % (Manual) Myelocytes % (Man) Nucleated RBC % Metamyelocytes Platelet Estimate PT with INR 14.60 H INR 1.23 H PTT (Actin FS) 36.1 Sodium Potassium Chloride Carbon Dioxide Anion Gap BUN Creatinine Creat Clearance w eGFR Random Glucose Lactic Acid Calcium Magnesium 1.2 L Total Bilirubin Direct Bilirubin 7.1 H AST ALT Alkaline Phosphatase Ammonia Total Protein Albumin Lipase Urine Color Urine Appearance Urine pH Ur Specific [place] Urine Protein Urine Glucose (UA) Urine Ketones Urine Blood Urine Nitrite Urine Bilirubin Urine Urobilinogen Ur Leukocyte Esterase Urine WBC (Auto) Urine RBC (Auto) Urine Mucus Salicylates Opiates Screen Methadone Screen Acetaminophen Barbiturate Screen Phencyclidine Screen Ur Amphetamines Screen MDMA (Ecstasy) Screen Benzodiazepines Screen Cocaine Screen U Marijuana (THC) Screen Alcohol, Quantitative Blood Type O POSITIVE Antibody Screen Negative 01/14/18 01/14/18 01/14/18 18:10 18:10 18:36 WBC RBC Hgb Hct MCV MCH MCHC RDW Plt Count MPV Absolute Neuts (auto) Neutrophils % Neutrophils % (Manual) Band Neutrophils % Lymphocytes % Lymphocytes % (Manual) Monocytes % Monocytes % (Manual) Eosinophils % Eosinophils % (Manual) Basophils % Basophils % (Manual) Myelocytes % (Man) Nucleated RBC % Metamyelocytes Platelet Estimate PT with INR INR PTT (Actin FS) Sodium Potassium Chloride Carbon Dioxide Anion Gap BUN Creatinine Creat Clearance w eGFR Random Glucose Lactic Acid Calcium Magnesium Total Bilirubin Direct Bilirubin AST ALT Alkaline Phosphatase Ammonia 37.35 H Total Protein Albumin Lipase Urine Color Katty Urine Appearance Clear Urine pH 8.0 D Ur Specific [place] 1.015 Urine Protein 1+ H Urine Glucose (UA) Negative Urine Ketones Negative Urine Blood Negative Urine Nitrite Negative Urine Bilirubin 2.0 Urine Urobilinogen 4.0 e.u/dl Ur Leukocyte Esterase Negative Urine WBC (Auto) 1 Urine RBC (Auto) None Urine Mucus Rare Salicylates Opiates Screen Methadone Screen Acetaminophen Barbiturate Screen Phencyclidine Screen Ur Amphetamines Screen MDMA (Ecstasy) Screen Benzodiazepines Screen Cocaine Screen U Marijuana (THC) Screen Alcohol, Quantitative < 3.0 Blood Type Antibody Screen 01/14/18 18:56 WBC RBC Hgb Hct MCV MCH MCHC RDW Plt Count MPV Absolute Neuts (auto) Neutrophils % Neutrophils % (Manual) Band Neutrophils % Lymphocytes % Lymphocytes % (Manual) Monocytes % Monocytes % (Manual) Eosinophils % Eosinophils % (Manual) Basophils % Basophils % (Manual) Myelocytes % (Man) Nucleated RBC % Metamyelocytes Platelet Estimate PT with INR INR PTT (Actin FS) Sodium Potassium Chloride Carbon Dioxide Anion Gap BUN Creatinine Creat Clearance w eGFR Random Glucose Lactic Acid 1.0 Calcium Magnesium Total Bilirubin Direct Bilirubin AST ALT Alkaline Phosphatase Ammonia Total Protein Albumin Lipase Urine Color Urine Appearance Urine pH Ur Specific [place] Urine Protein Urine Glucose (UA) Urine Ketones Urine Blood Urine Nitrite Urine Bilirubin Urine Urobilinogen Ur Leukocyte Esterase Urine WBC (Auto) Urine RBC (Auto) Urine Mucus Salicylates Opiates Screen Methadone Screen Acetaminophen Barbiturate Screen Phencyclidine Screen Ur Amphetamines Screen MDMA (Ecstasy) Screen Benzodiazepines Screen Cocaine Screen U Marijuana (THC) Screen Alcohol, Quantitative Blood Type Antibody Screen ASSESSMENT/PLAN: 77 y/o M w/ PMHx EtOH abuse presented from [facility] w/ AMS. In active withdrawal. Found on w/u to meet diagnostic criteria for pancreatitis. #pancreatitis -significant abdominal tenderness -CT a/p w/ peripancreatic soft tissue edema -nl lipase -process may be chronic or acute on chronic -MRCP pending -lipid panel pending -LR @ 125 -NPO #EtOH withdrawal -CIWA score >10 based on diaphoresis, auditory hallucination, and tremor -standing Ativan 2q4 -second dose of Mg ordered -daily thiamine and folate -monitor and replete electrolytes -S/S consultation ordered -fall risk precautions -aspiration precautions -elevate HOB -NPO #FEN -LR @ 125 -monitor and replete electrolytes -NPO #PPx -DVT: Lovenox subq -GI: not indicated #code -full #dispo -admit to med/surg Visit type - Emergency Visit Emergency Visit: Yes Care time: The patient presented to the Emergency Department on the above date and was hospitalized for further evaluation of their emergent condition. - New Patient This patient is new to me today: Yes Date on this admission: 01/15/18 - Critical Care Critical Care patient: No
[2018-01-15] MEDS ORDERED: LORazepam 2 MG/ML SDV VIAL ONE ×2 (00:33→06:19)
[2018-01-15] MEDS ORDERED: MAGNESIUM SULF 50% (8.12 MEQ/2 ML-1 GM VIAL) IVPB ONE (01:00)
[2018-01-15 01:05] LABS: CHOLESTEROL 186 mg/dL (50-200); HDL CHOLESTEROL 10 mg/dL (40-60); TRIGLYCERIDES 266 mg/dL (0-150)
[2018-01-15] MEDS ORDERED: MAGNESIUM 1GM/D5W - 2 GM/200 ML IVPB IVPB ONE (01:26)
[2018-01-15 01:56] LABS: ANISOCYTOSIS 2+; MACROCYTOSIS 2+; PLATELET ESTIMATE DECREASED
[2018-01-15] MEDS: LORazepam 2 MG/ML SDV VIAL IVPUSH SCH ×2 (06:26→10:22)
[2018-01-15 06:34] LABS: BASO % 0.7 % (0-2.0); EOS % 2.6 % (0-4.5); HEMATOCRIT 35.3 % (35.4-49); HEMOGLOBIN 11.2 GM/dL (11.7-16.9); LYMPH % 13.8 % (8-40); MCH 36.2 pg (25.7-33.7); MCHC 31.8 g/dl (32.0-35.9); MEAN CELL VOLUME 113.7 fl (80-96); MEAN PLT VOLUME 9.4 fl (7.5-11.1); NEUT % 74.9 % (42.8-82.8); PLATELET COUNT 109 K/MM3 (134-434); RBC 3.11 M/mm3 (4.00-5.60); RDW 16.8 % (11.9-15.9); WHITE BLOOD COUNT 6.7 K/mm3 (4.0-10.0)
[2018-01-15 06:47] LABS: INR 1.23 (0.83-1.09); PROTHROMBIN TIME (PATIENT) 14.6 SEC (9.7-13.0)
[2018-01-15 06:50] LABS: ACTIVATED PTT 32.1 SECONDS (25.2-36.5)
[2018-01-15 07:19] LABS: ALBUMIN 2.3 g/dl (3.4-5.0); ALK PHOS 241 U/L (45-117); ANION GAP 7 MMOL/L (8-16); BILIRUBIN,TOTAL 8.1 mg/dL (0.2-1); BLOOD UREA NITROGEN 12 mg/dL (7-18); CALCIUM 7.8 mg/dL (8.5-10.1); CHLORIDE 106 mmol/L (98-107); CO2 27 mmol/L (21-32); CREATININE 0.9 mg/dL (0.55-1.3); GLUCOSE,RANDOM 90 mg/dL (74-106); MAGNESIUM 2.6 mg/dL (1.8-2.4); PHOSPHOROUS 1.5 mg/dL (2.5-4.9); POTASSIUM 4.4 mmol/L (3.5-5.1); SGOT/AST 147 U/L (15-37); SGPT/ALT 70 U/L (13-61); SODIUM 140 mmol/L (136-145); TOT PROT 5.3 g/dl (6.4-8.2)
[2018-01-15] MEDS ORDERED: FOLIC ACID INJECTION - 1 MG, THIAMINE HCL 100 MG, MULTIVIT INJECTION ADULT 10 ML in SOD... IVPB ONE (08:00)
[2018-01-15] MEDS ORDERED: POTASSIUM PHOSPHATE 30 MM in SODIUM CHLORIDE 500 ML IVPB ONE (09:15)
[2018-01-15] MEDS ORDERED: THIAMINE HCL 200 MG/2 ML VIAL IVPB SCH ×2 (10:00→11:00)
[2018-01-15] MEDS ORDERED: ENOXAPARIN NA (PORCINE) 40 MG/0.4 ML DISP.SYRIN SQ SCH (10:00)
[2018-01-15] MEDS ORDERED: LORazepam 2 MG/ML SDV VIAL IVPUSH PRN (10:37)
[2018-01-15 11:36] LABS: ANISOCYTOSIS 1+; MACROCYTOSIS 1+; OVALOCYTE 1+; PLATELET ESTIMATE DECREASED; TARGET CELLS 1+
--- NOTE | 2018-01-15 12:03 | CONSULT ---
Admitting History and Physical - Primary Care Physician PCP: Sudeep Vickers - Admission History of Present Illness: 77 y/o M w/ PMHx EtOH abuse presented from [facility] w/ AMS. In active withdrawal. Found on w/u to meet diagnostic criteria for pancreatitis. History Source: Medical Record Limitations to Obtaining History: Clinical Condition - Smoking History Smoking history: Current some day smoker Have you smoked in the past 12 months: Yes Aproximately how many cigarettes per day: 1 - Alcohol/Substance Use Hx Alcohol Use: Yes History - Admission Reason For Visit: ALCOHOL DEPENDENCE WITH UNCOMPLICATED WITHDRAWAL - Diagnostics X-ray: Report Reviewed CT Scan: Report Reviewed - General Mental Status: Vague, Confused, Flat Affect Attention: Distractible, Mild Impairment, Moderate Impairment - Hearing Hearing: Functional Speech Evaluation - Communication Primary Language: [id number] Communication: Yes: Simple Responses (Poor intelligibilty) - Speech Production Able to Make Needs Known: Yes: Moderately Impaired, Severely Impaired Intelligibility: Yes: Moderately Impaired, Severely Impaired - Speech Characteristics Voice Loudness: Mildly Soft/Quiet Voice Phonatory-based Quality: Yes: Harsh, Dysphonia, Vocal Wetness Speech Pattern: Impaired Speech Clarity: < 25% - Language/Verbal Expression Able to Communicate Wants and Needs: Yes: Severely Impaired - Swallow Evaluation/Bedside Assessment Current Nutritional Intake: NPO Dentition: Yes: Edentulous (upper), Dental Appliance Lower Lingual Movement: Symmetric, Reduced Protrusion Lingual Speed of Movement: Reduced Lingual Movement Strgth Against Opposition: Reduced Laryngeal Movement: Labored,delay initiation Labial Seal: Impaired Bilaterally Oral Prep Time: Increased A-P Transit: Impaired Timing of Swallow: Delayed Coughing/Throat Clear: Yes (thin) Recommendations - Speech Evaluation, Impression/Plan Impression: Swallow onset delayed with cough response with thin liquid, c/w aspiration. Wet, harsh vocal quality. Cough. Sounds congested. CT chest noted. - Dysphagia Impressions/Plan Swallowing Skills: Impaired Dysphagia Impressions: Moderate Impairment, Suspect Aspiration *Silent aspiration: cannot be R/O at bedside Dysphagia Treatment Plan: Small Bites, Chin Tuck/Down, Safe Rate, 1/2 tsp. at a time, Elevate HOB during feed Recommendations: ENT Consult (If vocal quality does not improve.), Modified Barium Swallow, Other (Feed only if fully awake. D/c PO if cough, congestion, throat clearing.) - Recommendations Diet Consistency: Dysphagia Pureed Medication Administration: Crushed with applesauce Liquids: [place] Thick (on a tsp) Supplement: Ensure Pudding
--- NOTE | 2018-01-15 12:14 | PN ---
Teaching Attending Note Name of Resident: Gely Yuen ATTENDING PHYSICIAN STATEMENT I saw and evaluated the patient. I reviewed the resident's note and discussed the case with the resident. I agree with the resident's findings and plan as documented. SUBJECTIVE: unable to obtain hx due to AMS. No events per RN. per her he is a little more awake now . non productive cough per RN OBJECTIVE: NAD , lethargic, arousable, mumbles . cooperate with exam HEENT: scaly erythematous skin on forehead, nose , cheeks , and chin . No JVd, dry MM. EOMI, round equal pupils, reactive to light . horizontal nystagmus . CV: RRR, no MRG Lungs: wheezing in upper lungs, and crackles half way down on both lung [place]. Abd:soft, TTP in all quadrants, no rebound tenderness or guarding. liver is palpated 5 cm below costal margin. no shifting dullness. Ext : no edema on LE . no erythema, thick scaly skin on dorsal toes, and thick deformed toe nails ASSESSMENT AND PLAN: 77 y/o man with h/o Alcoholism, HLP, HTN, gout and smoking who presented from [facility] with AMS. 1- AMS: ddx includes alcohol withdrawal, vs Wernicke's encephalopathy (nystagmus , alcoholism) vs alcoholic hepatitis . ammonia level is minimally elevated and unlikely indicates hepatic encephalopathy. Head CT neg. chronic infarct - start high dose thiamine. 500 q8h x 2 days then 250 daily x 5 more days - treat alcohol WD - follow blood cx and r/o infection - might start aspiring due to old infarct . but given his alcoholism , will monitor for any bleed first 2- Transaminitis: likely due to alcoholic hepatitis. but can't r/o CBD stone - check US of RUQ. - MRCP. can't do the questionnaire, but CT of head and ABd/pelsix and cxray did not show any metal - MAddry's DF 25 but has encephalopathy. later today if able to take po , will start pentoxiphyllin 400 TID - check hepatitis serology - GI consult 3- Acute pancreatitis: CT and tenderness on exam. ? chronic pancreatitis causing NL Lipase. likely alcoholic - IVF with caution as he shows signs of L sided heart failure. ( wheezing, crackles, and congested cxray ) - give lasix with IVF - NPO for now 4- ETOH withdrawal: - change ativan to PRN , and decrease dose - cont thiamine as above 5- Possible L sided heart failure. has signs and sx . - check BNP, if elevated get echo for possible alcohol induced cardiomyopathy - can give lasix as needed while hydrating - repeat Cxray 6- DVT px : heparin sq.
[2018-01-15] MEDS ORDERED: THIAMINE HCL 200 MG/2 ML VIAL IVPB ONE (12:15)
--- NOTE | 2018-01-15 15:04 | PN ---
Physical Exam: SUBJECTIVE: Patient seen and examined. Pt. unable to provide history at the time. Pt. denies chest pain or problems with breathing. Pt. without IV access as Pt. pulls IV out repeatedly. Per conversation with Dr. Veliz, Pt. is homeless and does not have insurance. Pt. does not haev documented pharmacy and has not picked up medications ever at the listed pharmacy. OBJECTIVE: Vital Signs Period Temp Pulse Resp BP Sys/Glynn Pulse Ox Last 24 Hr 98.2 F-99.9 F 74-85 16-18 120-135/77-80 100-100 GENERAL: The patient is somnolent, grunts for responses HEAD: Normal with no signs of trauma. EYES: PERRL, extraocular movements intact, scleral ictericus, conjunctiva clear. No ptosis. ENT: Ears normal, nares patent, oropharynx clear without exudates, dry mucous membranes. NECK: Trachea midline, full range of motion, supple, No JVD. LUNGS: Coarse breath sounds, with wheezing and mild crackles in dependant positions. HEART: Regular rate and rhythm, S1, S2 without murmur ABDOMEN: Soft, diffuse abdominal tenderness to palpation, nondistended, normoactive bowel sounds, no rebound, hepatomegaly present, no shifting dullness. EXTREMITIES: 2+ dorsal pedal pulses, warm, well-perfused, no calf tenderness no edema, iv site. NEUROLOGICAL: Somnolent, gait not observed. PSYCH: Normal mood, normal affect. SKIN: Warm, dry, normal turgor, vesicular rash noted in inguinal groin and under panniculus Laboratory Results - last 24 hr 01/14/18 01/14/18 01/14/18 18:10 18:10 18:10 WBC 8.7 RBC 3.17 L Hgb 12.0 Hct 35.1 L MCV 110.7 H MCH 37.7 H MCHC 34.1 RDW 16.9 H Plt Count 136 D MPV 9.5 Absolute Neuts (auto) 6.7 Neutrophils % 76.7 Neutrophils % (Manual) 68.0 Band Neutrophils % 6.0 Lymphocytes % 12.0 D Lymphocytes % (Manual) 15.0 D Monocytes % 8.1 Monocytes % (Manual) 6 Eosinophils % 2.6 Eosinophils % (Manual) 2.0 Basophils % 0.6 Basophils % (Manual) 0.0 Myelocytes % (Man) 1 Promyelocytes % (Man) Blast Cells % (Manual) Nucleated RBC % 0 Metamyelocytes 2 D Hypochromia Platelet Estimate Adequate Polychromasia Poikilocytosis Anisocytosis Microcytosis Macrocytosis Target Cells Ovalocytes Stomatocytes PT with INR INR PTT (Actin FS) Sodium 141 Potassium 4.8 Chloride 105 Carbon Dioxide 29 Anion Gap 8 BUN 12 Creatinine 1.0 Creat Clearance w eGFR > 60 Random Glucose 84 Lactic Acid Calcium 8.8 Phosphorus Magnesium Total Bilirubin 9.3 H Direct Bilirubin AST 198 H ALT 89 H Alkaline Phosphatase 296 H Ammonia B-Natriuretic Peptide Total Protein 6.5 Albumin 2.8 L Triglycerides Cholesterol Total LDL Cholesterol HDL Cholesterol Lipase 54 L Urine Color Urine Appearance Urine pH Ur Specific [place] Urine Protein Urine Glucose (UA) Urine Ketones Urine Blood Urine Nitrite Urine Bilirubin Urine Urobilinogen Ur Leukocyte Esterase Urine WBC (Auto) Urine RBC (Auto) Urine Mucus Salicylates < 1.7 L Opiates Screen Negative Methadone Screen Negative Acetaminophen < 2.0 L Barbiturate Screen Negative Phencyclidine Screen Negative Ur Amphetamines Screen Negative MDMA (Ecstasy) Screen Negative Benzodiazepines Screen Positive A* Cocaine Screen Negative U Marijuana (THC) Screen Negative Alcohol, Quantitative Blood Type Antibody Screen 01/14/18 01/14/18 01/14/18 18:10 18:10 18:10 WBC RBC Hgb Hct MCV MCH MCHC RDW Plt Count MPV Absolute Neuts (auto) Neutrophils % Neutrophils % (Manual) Band Neutrophils % Lymphocytes % Lymphocytes % (Manual) Monocytes % Monocytes % (Manual) Eosinophils % Eosinophils % (Manual) Basophils % Basophils % (Manual) Myelocytes % (Man) Promyelocytes % (Man) Blast Cells % (Manual) Nucleated RBC % Metamyelocytes Hypochromia Platelet Estimate Polychromasia Poikilocytosis Anisocytosis Microcytosis Macrocytosis Target Cells Ovalocytes Stomatocytes PT with INR 14.60 H INR 1.23 H PTT (Actin FS) 36.1 Sodium Potassium Chloride Carbon Dioxide Anion Gap BUN Creatinine Creat Clearance w eGFR Random Glucose Lactic Acid Calcium Phosphorus Magnesium 1.2 L Total Bilirubin Direct Bilirubin 7.1 H AST ALT Alkaline Phosphatase Ammonia B-Natriuretic Peptide Total Protein Albumin Triglycerides Cholesterol Total LDL Cholesterol HDL Cholesterol Lipase Urine Color Urine Appearance Urine pH Ur Specific [place] Urine Protein Urine Glucose (UA) Urine Ketones Urine Blood Urine Nitrite Urine Bilirubin Urine Urobilinogen Ur Leukocyte Esterase Urine WBC (Auto) Urine RBC (Auto) Urine Mucus Salicylates Opiates Screen Methadone Screen Acetaminophen Barbiturate Screen Phencyclidine Screen Ur Amphetamines Screen MDMA (Ecstasy) Screen Benzodiazepines Screen Cocaine Screen U Marijuana (THC) Screen Alcohol, Quantitative Blood Type O POSITIVE Antibody Screen Negative 01/14/18 01/14/18 01/14/18 18:10 18:10 18:36 WBC RBC Hgb Hct MCV MCH MCHC RDW Plt Count MPV Absolute Neuts (auto) Neutrophils % Neutrophils % (Manual) Band Neutrophils % Lymphocytes % Lymphocytes % (Manual) Monocytes % Monocytes % (Manual) Eosinophils % Eosinophils % (Manual) Basophils % Basophils % (Manual) Myelocytes % (Man) Promyelocytes % (Man) Blast Cells % (Manual) Nucleated RBC % Metamyelocytes Hypochromia Platelet Estimate Polychromasia Poikilocytosis Anisocytosis Microcytosis Macrocytosis Target Cells Ovalocytes Stomatocytes PT with INR INR PTT (Actin FS) Sodium Potassium Chloride Carbon Dioxide Anion Gap BUN Creatinine Creat Clearance w eGFR Random Glucose Lactic Acid Calcium Phosphorus Magnesium Total Bilirubin Direct Bilirubin AST ALT Alkaline Phosphatase Ammonia 37.35 H B-Natriuretic Peptide Total Protein Albumin Triglycerides Cholesterol Total LDL Cholesterol HDL Cholesterol Lipase Urine Color [place] Urine Appearance Clear Urine pH 8.0 D Ur Specific [place] 1.015 Urine Protein 1+ H Urine Glucose (UA) Negative Urine Ketones Negative Urine Blood Negative Urine Nitrite Negative Urine Bilirubin 2.0 Urine Urobilinogen 4.0 e.u/dl Ur Leukocyte Esterase Negative Urine WBC (Auto) 1 Urine RBC (Auto) None Urine Mucus Rare Salicylates Opiates Screen Methadone Screen Acetaminophen Barbiturate Screen Phencyclidine Screen Ur Amphetamines Screen MDMA (Ecstasy) Screen Benzodiazepines Screen Cocaine Screen U Marijuana (THC) Screen Alcohol, Quantitative < 3.0 Blood Type Antibody Screen 01/14/18 01/14/18 01/15/18 18:56 23:50 00:15 WBC 8.6 RBC 2.94 L Hgb 11.2 L Hct 33.0 L MCV 112.0 H MCH 38.0 H MCHC 34.0 RDW 17.1 H Plt Count 113 L MPV 9.7 Absolute Neuts (auto) 6.5 Neutrophils % 76.1 Neutrophils % (Manual) 61.4 Band Neutrophils % 9.9 Lymphocytes % 12.2 Lymphocytes % (Manual) 9.9 D Monocytes % 8.7 Monocytes % (Manual) 8 Eosinophils % 2.1 Eosinophils % (Manual) 2.0 Basophils % 0.9 Basophils % (Manual) 0.0 Myelocytes % (Man) 6 H D Promyelocytes % (Man) 0 Blast Cells % (Manual) 0 Nucleated RBC % 0 Metamyelocytes 0 D Hypochromia 0 Platelet Estimate Decreased Polychromasia 0 Poikilocytosis 0 Anisocytosis 2+ Microcytosis 0 Macrocytosis 2+ Target Cells Ovalocytes Stomatocytes PT with INR INR PTT (Actin FS) Sodium Potassium Chloride Carbon Dioxide Anion Gap BUN Creatinine Creat Clearance w eGFR Random Glucose Lactic Acid 1.0 Calcium Phosphorus Magnesium Total Bilirubin Direct Bilirubin AST ALT Alkaline Phosphatase Ammonia B-Natriuretic Peptide Total Protein Albumin Triglycerides Cholesterol Total LDL Cholesterol HDL Cholesterol Lipase Urine Color Urine Appearance Urine pH Ur Specific [place] Urine Protein Urine Glucose (UA) Urine Ketones Urine Blood Urine Nitrite Urine Bilirubin Urine Urobilinogen Ur Leukocyte Esterase Urine WBC (Auto) Urine RBC (Auto) Urine Mucus Salicylates Opiates Screen Methadone Screen Acetaminophen Barbiturate Screen Phencyclidine Screen Ur Amphetamines Screen MDMA (Ecstasy) Screen Benzodiazepines Screen Cocaine Screen U Marijuana (THC) Screen Alcohol, Quantitative Blood Type O POSITIVE Antibody Screen 01/15/18 01/15/18 01/15/18 00:15 05:20 05:20 WBC 6.7 RBC 3.11 L Hgb 11.2 L Hct 35.3 L MCV 113.7 H MCH 36.2 H MCHC 31.8 L RDW 16.8 H Plt Count 109 L MPV 9.4 Absolute Neuts (auto) 5.0 Neutrophils % 74.9 Neutrophils % (Manual) 67.6 Band Neutrophils % 10.8 Lymphocytes % 13.8 Lymphocytes % (Manual) 9.8 Monocytes % 8.0 Monocytes % (Manual) 6 Eosinophils % 2.6 Eosinophils % (Manual) 1.9 Basophils % 0.7 Basophils % (Manual) 0.0 Myelocytes % (Man) 2 D Promyelocytes % (Man) 0 Blast Cells % (Manual) 0 Nucleated RBC % 0 Metamyelocytes 2 D Hypochromia 1+ Platelet Estimate Decreased Polychromasia 0 Poikilocytosis 0 Anisocytosis 1+ Microcytosis 0 Macrocytosis 1+ Target Cells 1+ Ovalocytes 1+ Stomatocytes 1+ PT with INR 14.60 H INR 1.23 H PTT (Actin FS) 32.1 Sodium Potassium Chloride Carbon Dioxide Anion Gap BUN Creatinine Creat Clearance w eGFR Random Glucose Lactic Acid Calcium Phosphorus Magnesium Total Bilirubin Direct Bilirubin AST ALT Alkaline Phosphatase Ammonia B-Natriuretic Peptide Total Protein Albumin Triglycerides 266 H Cholesterol 186 Total LDL Cholesterol 151 H HDL Cholesterol 10 L Lipase Urine Color Urine Appearance Urine pH Ur Specific [place] Urine Protein Urine Glucose (UA) Urine Ketones Urine Blood Urine Nitrite Urine Bilirubin Urine Urobilinogen Ur Leukocyte Esterase Urine WBC (Auto) Urine RBC (Auto) Urine Mucus Salicylates Opiates Screen Methadone Screen Acetaminophen Barbiturate Screen Phencyclidine Screen Ur Amphetamines Screen MDMA (Ecstasy) Screen Benzodiazepines Screen Cocaine Screen U Marijuana (THC) Screen Alcohol, Quantitative Blood Type Antibody Screen 01/15/18 05:20 WBC RBC Hgb Hct MCV MCH MCHC RDW Plt Count MPV Absolute Neuts (auto) Neutrophils % Neutrophils % (Manual) Band Neutrophils % Lymphocytes % Lymphocytes % (Manual) Monocytes % Monocytes % (Manual) Eosinophils % Eosinophils % (Manual) Basophils % Basophils % (Manual) Myelocytes % (Man) Promyelocytes % (Man) Blast Cells % (Manual) Nucleated RBC % Metamyelocytes Hypochromia Platelet Estimate Polychromasia Poikilocytosis Anisocytosis Microcytosis Macrocytosis Target Cells Ovalocytes Stomatocytes PT with INR INR PTT (Actin FS) Sodium 140 Potassium 4.4 Chloride 106 Carbon Dioxide 27 Anion Gap 7 L BUN 12 Creatinine 0.9 Creat Clearance w eGFR > 60 Random Glucose 90 Lactic Acid Calcium 7.8 L Phosphorus 1.5 L Magnesium 2.6 H Total Bilirubin 8.1 H Direct Bilirubin AST 147 H ALT 70 H Alkaline Phosphatase 241 H Ammonia B-Natriuretic Peptide 3389.0 H Total Protein 5.3 L Albumin 2.3 L Triglycerides Cholesterol Total LDL Cholesterol HDL Cholesterol Lipase Urine Color Urine Appearance Urine pH Ur Specific [place] Urine Protein Urine Glucose (UA) Urine Ketones Urine Blood Urine Nitrite Urine Bilirubin Urine Urobilinogen Ur Leukocyte Esterase Urine WBC (Auto) Urine RBC (Auto) Urine Mucus Salicylates Opiates Screen Methadone Screen Acetaminophen Barbiturate Screen Phencyclidine Screen Ur Amphetamines Screen MDMA (Ecstasy) Screen Benzodiazepines Screen Cocaine Screen U Marijuana (THC) Screen Alcohol, Quantitative Blood Type Antibody Screen Active Medications Current Medications Folic Acid (Folic Acid Injection -) 1 mg SQ DAILY RUFINA Heparin Sodium (Porcine) (Heparin -) 5,000 unit SQ TID RUFINA Folic Acid 1 mg/ Thiamine HCl 100 mg/ Multivitamins/Minerals 10 ml/ Sodium Chloride 1,000 mls @ 125 mls/hr IVPB ONCE ONE Stop: 01/15/18 15:59 Last Admin: 01/15/18 11:05 Dose: Not Given Potassium Phosphate 30 mm/ (Sodium Chloride) 510 mls @ 62.5 mls/hr IVPB ONCE ONE Stop: 01/15/18 17:24 Last Admin: 01/15/18 10:22 Dose: 62.5 mls/hr Lactated Ringer's (Lactated Ringers Solution) 1,000 ml in 1,000 mls @ 100 mls/ hr IV ASDIR RUFINA Lorazepam (Ativan Injection -) 1 mg IVPUSH Q6H PRN PRN Reason: WITHDRAWAL(CONT SUBST) Thiamine HCl (Vitamin B1 Injection -) 500 mg IVPB Q8H-IV RUFINA Home Medications Medication Instructions Recorded Allopurinol [Zyloprim -] 300 mg PO DAILY 01/14/18 Amlodipine Besylate [Norvasc -] 5 mg PO DAILY 01/14/18 Aspirin 81 mg PO DAILY 01/14/18 Atorvastatin Ca [Lipitor] 40 mg PO HS 01/14/18 Labetalol HCl 100 mg PO BID 01/14/18 ASSESSMENT/PLAN: 77 y/o M w/ PMHx. EtOH abuse presented from [facility] w/ AMS 2/2 hepatic encephalopathy w/ associated cholelithiasis and chronic pancreatitis. #Hepatic encephalopathy 2/2 cirrhosis and benzodiazepine usage -CIWA score: 13 based on and tremor -Maddrey: 21.3 as calculated by me. -D/C Ativan. AVOID Benzodiazepene usage per Dr. Hassan (GI Consult), as Pt. has decreased clearance of benzos. -Started IV Solumedrol 32mg Daily -started Protonix 40mg IVP Daily -Haldol for agitation -Lactulose 20gm TID -NGT placed 01/15/18 -replete Magnesium -daily thiamine and folate -monitor and replete electrolytes -S/S consultation appreciated -fall risk precautions -aspiration precautions -elevate HOB -NPO -f/u MRCP -Abdominal US: cholelithiasis w/o cholecystitis, hepatomegaly w/ diffuse fatty infiltration -Abdominal CT noted -UTox: Positive for Benzos #CHF likely reduced EF -BNP: 3,389 -monitor volume status -f/u echo #FEN -LR @ 100ml/hr -monitor and replete electrolytes -NPO #PPx -DVT: Lovenox SQ -GI: Protonix 40mg IVP #code -Full #dispo -Admit to med/surg Visit type - Emergency Visit Emergency Visit: Yes ED Registration Date: 01/14/18 Care time: The patient presented to the Emergency Department on the above date and was hospitalized for further evaluation of their emergent condition. - New Patient This patient is new to me today: Yes Date on this admission: 01/15/18 - Critical Care Critical Care patient: No - Discharge Referral Referred to [facility] Med [facility].C[facility] No
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
[2018-01-15] MEDS ORDERED: FUROSEMIDE 40 MG/4 ML INJECTABLE VIAL IVPUSH ONE (16:52)
[2018-01-15] MEDS ORDERED: HALOPERIDOL LACTATE 5 MG/ML IM PRN (16:54)
--- NOTE | 2018-01-15 17:02 | EKG ---
Test Reason : Blood Pressure : / mmHG Vent. Rate : 084 BPM Atrial Rate : 084 BPM P-R Int : 150 ms QRS Dur : 084 ms QT Int : 374 ms P-R-T Axes : 067 011 053 degrees QTc Int : 441 ms NORMAL SINUS RHYTHM SEPTAL INFARCT , AGE UNDETERMINED ABNORMAL ECG Confirmed by MD YASEMIN, MIKE ([id number]) on 01/15/2018 5:02:17 PM Referred By: Confirmed By:MIKE HAZEL MD
[2018-01-15] MEDS ORDERED: VANCOMYCIN 1,250 MG in DEXTROSE 5%-WATER - 250 ML IVPB ONE (17:30)
[2018-01-16 04:18] LABS: HEP.C VIRUS AB <0.1 s/co ratio (0.0-0.9)
[2018-01-16] MEDS ORDERED: VANCOMYCIN 1,250 MG in DEXTROSE 5%-WATER - 250 ML IVPB ONE ×3 (05:00→18:00)
[2018-01-16 07:14] LABS: INR 1.34 (0.83-1.09); PROTHROMBIN TIME (PATIENT) 15.9 SEC (9.7-13.0)
[2018-01-16] MEDS: THIAMINE HCL 200 MG/2 ML VIAL IVPB SCH ×3 (07:24→18:02)
[2018-01-16 07:38] LABS: ALBUMIN 2.1 g/dl (3.4-5.0); ALK PHOS 202 U/L (45-117); ANION GAP 9 MMOL/L (8-16); BILIRUBIN,DIRECT 7.3 mg/dL (0.0-0.2); BILIRUBIN,TOTAL 9.6 mg/dL (0.2-1); BLOOD UREA NITROGEN 13 mg/dL (7-18); CALCIUM 7.4 mg/dL (8.5-10.1); CHLORIDE 109 mmol/L (98-107); CO2 25 mmol/L (21-32); CREATININE 0.7 mg/dL (0.55-1.3); GLUCOSE,RANDOM 76 mg/dL (74-106); MAGNESIUM 1.5 mg/dL (1.8-2.4); PHOSPHOROUS 2.3 mg/dL (2.5-4.9); POTASSIUM 4.5 mmol/L (3.5-5.1); SGOT/AST 133 U/L (15-37); SGPT/ALT 58 U/L (13-61); SODIUM 142 mmol/L (136-145); TOT PROT 4.8 g/dl (6.4-8.2)
--- NOTE | 2018-01-16 07:51 | PN ---
Teaching Attending Note Name of Resident: Erasto Vicente ATTENDING PHYSICIAN STATEMENT I saw and evaluated the patient. I reviewed the resident's note and discussed the case with the resident. I agree with the resident's findings and plan as documented. SUBJECTIVE: Patient has no new complain. Events noted overnight. remains lethargic, NGT replaced this am. No BM yet as per nursing staff. OBJECTIVE: Vital Signs Temperature 98.4 F 01/16/18 06:00 Pulse Rate 86 01/16/18 06:00 Respiratory Rate 20 01/16/18 07:00 Blood Pressure 149/78 01/16/18 06:00 O2 Sat by Pulse Oximetry (%) 96 01/16/18 07:00 Initial Vital Signs Temp Pulse Resp BP Pulse Ox 99.9 F H 85 18 120/80 100 01/14/18 17:58 01/14/18 17:58 01/14/18 17:58 01/14/18 17:58 01/14/18 17:58 GENERAL: lying in bed with no acute distress. lethargic HEAD: Normal with no signs of trauma. EYES: PERRL, extraocular movements intact, icteric scleral . ENT: Ears normal, oropharynx clear without exudates, dry mucous membranes. NECK: Trachea midline, full range of motion, supple, No JVD. LUNGS: Coarse breath sounds, with wheezing and mild crackles in dependant positions. HEART: Regular rate and rhythm, S1, S2 without murmur ABDOMEN: Soft, diffuse abdominal tenderness to palpation, ND, normoactive bowel sounds, no rebound, hepatomegaly, no shifting dullness. EXTREMITIES: 2+ dorsal pedal pulses, warm, well-perfused, no calf tenderness no edema, iv site. NEUROLOGICAL: Somnolent, gait not observed. PSYCH: Normal mood, normal affect. SKIN: Warm, dry, normal turgor. vesicular rash noted in inguinal groin and under panniculus CBCD WBC 6.7 K/mm3 (4.0-10.0) 01/15/18 05:20 RBC 3.11 M/mm3 (4.00-5.60) L 01/15/18 05:20 Hgb 11.2 GM/dL (11.7-16.9) L 01/15/18 05:20 Hct 35.3 % (35.4-49) L 01/15/18 05:20 MCV 113.7 fl (80-96) H 01/15/18 05:20 MCHC 31.8 g/dl (32.0-35.9) L 01/15/18 05:20 RDW 16.8 % (11.9-15.9) H 01/15/18 05:20 Plt Count 109 K/MM3 (134-434) L 01/15/18 05:20 MPV 9.4 fl (7.5-11.1) 01/15/18 05:20 CMP Sodium 142 mmol/L (136-145) 01/16/18 06:00 Potassium 4.5 mmol/L (3.5-5.1) 01/16/18 06:00 Chloride 109 mmol/L (98-107) H 01/16/18 06:00 Carbon Dioxide 25 mmol/L (21-32) 01/16/18 06:00 Anion Gap 9 MMOL/L (8-16) 01/16/18 06:00 BUN 13 mg/dL (7-18) 01/16/18 06:00 Creatinine 0.7 mg/dL (0.55-1.3) 01/16/18 06:00 Creat Clearance w eGFR > 60 (>60) 01/16/18 06:00 Random Glucose 76 mg/dL (74-106) 01/16/18 06:00 Calcium 7.4 mg/dL (8.5-10.1) L 01/16/18 06:00 Total Bilirubin 9.6 mg/dL (0.2-1) H 01/16/18 06:00 AST 133 U/L (15-37) H 01/16/18 06:00 ALT 58 U/L (13-61) 01/16/18 06:00 Alkaline Phosphatase 202 U/L (45-117) H 01/16/18 06:00 Total Protein 4.8 g/dl (6.4-8.2) L 01/16/18 06:00 Albumin 2.1 g/dl (3.4-5.0) L 01/16/18 06:00 Current Medications Generic Name Dose Route Start Last Admin Trade Name Freq PRN Reason Stop Dose Admin Folic Acid 1 mg 01/15/18 10:00 Folic Acid Injection - SQ DAILY RUFINA Haloperidol 5 mg 01/15/18 16:54 Haldol Injection (Fast Acting) - IM ONCE PRN AGITATION Heparin Sodium (Porcine) 5,000 unit 01/16/18 10:00 Heparin - SQ TID RUFINA Lactated Ringer's 1,000 ml in 1,000 mls @ 100 mls/hr 01/15/18 10:37 Lactated Ringers Solution IV ASDIR RUFINA Lactulose 20 gm 01/15/18 18:03 Cephulac (Oral Use) NGT Q8H PRN CONSTIPATION Methylprednisolone Sodium Succinate 32 mg 01/15/18 17:00 Solu-Medrol - IVPUSH DAILY RUFINA Pantoprazole Sodium 40 mg 01/15/18 18:15 Protonix Iv IVPUSH DAILY RUFINA Thiamine HCl 500 mg 01/15/18 19:00 01/16/18 07:24 Vitamin B1 Injection - IVPB Not Given Q8H-IV RUFINA Home Medications Medication Instructions Recorded Allopurinol [Zyloprim -] 300 mg PO DAILY 01/14/18 Amlodipine Besylate [Norvasc -] 5 mg PO DAILY 01/14/18 Aspirin 81 mg PO DAILY 01/14/18 Atorvastatin Ca [Lipitor] 40 mg PO HS 01/14/18 Labetalol HCl 100 mg PO BID 01/14/18 Microbiology 01/14/18 18:36 Urine - Urine - Catheterized Urine Culture - Final NO GROWTH OBTAINED 01/14/18 18:50 Blood - Peripheral Venous Blood Culture - Preliminary Staphylococcus Coagulase Neg 01/14/18 18:40 Blood - Peripheral Venous Blood Culture - Preliminary NO GROWTH OBTAINED AFTER 24 HOURS, INCUBATION TO CONTINUE FOR 4 DAYS. Normal Echo as per read Head CT : chronic infarct ASSESSMENT AND PLAN: Patient is a 77yo man with h/o Alcoholism, HLP, HTN, gout and smoking who presented from [facility] with AMS. # Acute metabolic encephalopathy due to alcohol withdrawal with alcoholic liver disease with possible Wernicke's encephalopathy (nystagmus, alcoholism) On IV thiamine 500 q8h x 2 days then 250 daily x 5 more days. # Acute Transaminitis: due to alcoholic hepatitis. US positive for Gall stones but no cholecystitis . Cannot do MRCP due unable to answer the questions. CT of head and ABd/pelvix and cxray did not show any metal , MAddry's DF 25. As per GI to start the patient on steroid. # Acute Bilirubinemia will monitor the level, GI consult appreciated # Acute on chronic pancreatitis due to alcoholism with NL Lipase. # ETOH withdrawal: continue thiamine ,prn ativan with low dose due to metabolic encephalopathy. 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
--- NOTE | 2018-01-16 08:32 | PN ---
Physical Exam: SUBJECTIVE: Patient seen and examined. Pt. pulled out NGT overnight despite restraints. Pt. does not have IV access yet as he is a hard stick. Pt. grunt for responses. Femoral line was placed as documented in procedure note. OBJECTIVE: Vital Signs Period Temp Pulse Resp BP Sys/Glynn Pulse Ox Last 24 Hr 98 F-98.4 F 69-86 16-20 131-149/65-78 96-98 GENERAL: The patient is somnolent, arousable to tactile and verbal stimuli. HEAD: Normal with no signs of trauma. EYES: PERRL, Sclera Icterus, conjunctiva clear. No ptosis. ENT: Ears normal, nares patent, oropharynx clear without exudates, dry mucous membranes, No JVD NECK: Trachea midline, full range of motion, supple. LUNGS: Diffuse crackles, no accessory muscle use, coarse breath sounds HEART: Tachycardic, regular rate and rhythm, S1, S2 without murmur ABDOMEN: Soft, diffuse TTP most prominent in RUQ, epigastrium and LLQ, tympanic to percussion, nondistended, normoactive bowel sounds, no guarding, no rebound, hepatomegaly, no masses. EXTREMITIES: 2+ dorsal pedal and left radial pulses, warm, well-perfused, no calf tenderness, no edema. NEUROLOGICAL: Normal speech, gait not observed. PSYCH: Normal mood, normal affect. SKIN: Warm, dry, normal turgor, no rashes or lesions noted Laboratory Results - last 24 hr 01/15/18 01/15/18 01/15/18 05:20 05:20 12:45 Neutrophils % (Manual) 67.6 Band Neutrophils % 10.8 Lymphocytes % (Manual) 9.8 Monocytes % (Manual) 6 Eosinophils % (Manual) 1.9 Basophils % (Manual) 0.0 Myelocytes % (Man) 2 D Promyelocytes % (Man) 0 Blast Cells % (Manual) 0 Metamyelocytes 2 D Hypochromia 1+ Platelet Estimate Decreased Polychromasia 0 Poikilocytosis 0 Anisocytosis 1+ Microcytosis 0 Macrocytosis 1+ Target Cells 1+ Ovalocytes 1+ Stomatocytes 1+ PT with INR INR Sodium 140 Potassium 4.4 Chloride 106 Carbon Dioxide 27 Anion Gap 7 L BUN 12 Creatinine 0.9 Creat Clearance w eGFR > 60 Random Glucose 90 Calcium 7.8 L Phosphorus 1.5 L Magnesium 2.6 H Ferritin Total Bilirubin 8.1 H Direct Bilirubin AST 147 H ALT 70 H Alkaline Phosphatase 241 H Ammonia B-Natriuretic Peptide 3389.0 H Total Protein 5.3 L Albumin 2.3 L Hepatitis A IgM Ab Negative Hep Bs Antigen Negative Hep B Core IgM Ab Negative Hepatitis C Antibody <0.1 01/16/18 01/16/18 01/16/18 06:00 06:00 06:00 Neutrophils % (Manual) Band Neutrophils % Lymphocytes % (Manual) Monocytes % (Manual) Eosinophils % (Manual) Basophils % (Manual) Myelocytes % (Man) Promyelocytes % (Man) Blast Cells % (Manual) Metamyelocytes Hypochromia Platelet Estimate Polychromasia Poikilocytosis Anisocytosis Microcytosis Macrocytosis Target Cells Ovalocytes Stomatocytes PT with INR 15.90 H INR 1.34 H Sodium 142 Potassium 4.5 Chloride 109 H Carbon Dioxide 25 Anion Gap 9 BUN 13 Creatinine 0.7 Creat Clearance w eGFR > 60 Random Glucose 76 Calcium 7.4 L Phosphorus 2.3 L Magnesium 1.5 L Ferritin 504.6 H Total Bilirubin 9.6 H Direct Bilirubin 7.3 H AST 133 H ALT 58 Alkaline Phosphatase 202 H Ammonia < 10.00 L B-Natriuretic Peptide Total Protein 4.8 L Albumin 2.1 L Hepatitis A IgM Ab Hep Bs Antigen Hep B Core IgM Ab Hepatitis C Antibody Active Medications Current Medications Folic Acid (Folic Acid Injection -) 1 mg SQ DAILY RUFINA Haloperidol (Haldol Injection (Fast Acting) -) 5 mg IM ONCE PRN PRN Reason: AGITATION Heparin Sodium (Porcine) (Heparin -) 5,000 unit SQ TID RUFINA Last Admin: 01/16/18 12:52 Dose: Not Given Lactated Ringer's (Lactated Ringers Solution) 1,000 ml in 1,000 mls @ 100 mls/ hr IV ASDIR RUFINA Lactulose (Cephulac (Oral Use)) 20 gm NGT Q8H PRN PRN Reason: CONSTIPATION Last Admin: 01/16/18 12:51 Dose: 20 gm Methylprednisolone Sodium Succinate (Solu-Medrol -) 32 mg IVPUSH DAILY RUFINA Pantoprazole Sodium (Protonix Iv) 40 mg IVPUSH DAILY RUFINA Thiamine HCl (Vitamin B1 Injection -) 500 mg IVPB Q8H-IV RUFINA Last Admin: 01/16/18 07:24 Dose: Not Given Home Medications Medication Instructions Recorded Allopurinol [Zyloprim -] 300 mg PO DAILY 01/14/18 Amlodipine Besylate [Norvasc -] 5 mg PO DAILY 01/14/18 Aspirin 81 mg PO DAILY 01/14/18 Atorvastatin Ca [Lipitor] 40 mg PO HS 01/14/18 Labetalol HCl 100 mg PO BID 01/14/18 ASSESSMENT/PLAN: 77 y/o M w/ PMHx. EtOH abuse presented from [facility] w/ AMS 2/2 hepatic encephalopathy w/ associated cholelithiasis and chronic pancreatitis. #Hepatic encephalopathy 2/2 cirrhosis and benzodiazepine usage -CIWA score: 13 based on agitation and tremor -Maddrey: 32.1 as calculated by me. -LFTs trending down however TBili increased from 8.1-->9.6 -D/C Ativan. AVOID Benzodiazepene usage per Dr. Hassan (GI Consult), as Pt. has decreased clearance of benzos. -Started IV Solumedrol 32mg Daily -started Protonix 40mg IVP Daily -Haldol for agitation -Lactulose 20gm TID -NGT placed 01/15/18 -replete Magnesium -daily thiamine and folate -monitor and replete electrolytes -S/S consultation appreciated -fall risk precautions -aspiration precautions -elevate HOB -NPO -f/u MRCP -Abdominal US: cholelithiasis w/o cholecystitis, hepatomegaly w/ diffuse fatty infiltration -Abdominal CT noted -UTox: Positive for Benzos #CHF likely reduced EF -BNP: 3,389 -monitor volume status -f/u echo #FEN -LR @ 100ml/hr -monitor and replete electrolytes -NPO #PPx -DVT: Lovenox SQ -GI: Protonix 40mg IVP #code -Full #dispo -Admit to med/surg Visit type - Emergency Visit Emergency Visit: Yes ED Registration Date: 01/14/18 Care time: The patient presented to the Emergency Department on the above date and was hospitalized for further evaluation of their emergent condition. - New Patient This patient is new to me today: No - Critical Care Critical Care patient: No - Discharge Referral Referred to [facility] Med P.C.: No
[2018-01-16] MEDS ORDERED: PT OWN MED DRAWER 7, Y5N ONE (08:51)
[2018-01-16 08:58] LABS: BASO % 0.7 % (0-2.0); EOS % 2.2 % (0-4.5); HEMATOCRIT 31.3 % (35.4-49); HEMOGLOBIN 11.1 GM/dL (11.7-16.9); LYMPH % 8.9 % (8-40); MCH 38.9 pg (25.7-33.7); MCHC 35.3 g/dl (32.0-35.9); MEAN CELL VOLUME 110.2 fl (80-96); MONO % 9.9 % (3.8-10.2); NEUT % 78.3 % (42.8-82.8); RBC 2.84 M/mm3 (4.00-5.60); RDW 16.7 % (11.9-15.9); WHITE BLOOD COUNT 9.6 K/mm3 (4.0-10.0)
[2018-01-16] MEDS ORDERED: MAGNESIUM SULF 50% (8.12 MEQ/2 ML-1 GM VIAL) IVPB ONE (09:40)
[2018-01-16 12:04] LABS: VENOUS PC02 35.2 mmHg (38-52); VENOUS PH 7.37 (7.32-7.42); VENOUS PO2 37.1 mmHg (28-48)
[2018-01-16 12:23] LABS: ACANTHOCYTES 0; HELMET CELLS 0; HOWELL-JOLLY BODIES 0; OVALOCYTE 0; PLATELET ESTIMATE DECREASED; ROULEAU 0; SICKELED CELLS 0; TARGET CELLS 0; TEAR DROP CELLS 0; TOXIC GRANULATION 0
--- NOTE | 2018-01-16 12:42 | PN ---
Progress Note, Physician History of Present Illness: Brief GI follow up note Pt seen/examined at bedside, remains lethargic, offers no complaints, NGT replaced this am. Has not moved bowels yet per nursing staff. - Current Medication List Current Medications: Active Medications Folic Acid (Folic Acid Injection -) 1 mg SQ DAILY RUFINA Haloperidol (Haldol Injection (Fast Acting) -) 5 mg IM ONCE PRN PRN Reason: AGITATION Heparin Sodium (Porcine) (Heparin -) 5,000 unit SQ TID RUFINA Lactated Ringer's (Lactated Ringers Solution) 1,000 ml in 1,000 mls @ 100 mls/ hr IV ASDIR RUFINA Lactulose (Cephulac (Oral Use)) 20 gm NGT Q8H PRN PRN Reason: CONSTIPATION Methylprednisolone Sodium Succinate (Solu-Medrol -) 32 mg IVPUSH DAILY RUFINA Pantoprazole Sodium (Protonix Iv) 40 mg IVPUSH DAILY RUFINA Thiamine HCl (Vitamin B1 Injection -) 500 mg IVPB Q8H-IV RUFINA Last Admin: 01/16/18 07:24 Dose: Not Given - Objective Vital Signs: Vital Signs Temperature 98.4 F 01/16/18 06:00 Pulse Rate 86 01/16/18 06:00 Respiratory Rate 20 01/16/18 07:00 Blood Pressure 149/78 01/16/18 06:00 O2 Sat by Pulse Oximetry (%) 96 01/16/18 07:00 Constitutional: Yes: Well Nourished, No Distress (Lethargic) Cardiovascular: Yes: Regular Rate and Rhythm Respiratory: Yes: Regular, CTA Bilaterally Gastrointestinal: Yes: Normal Bowel Sounds, Soft, Abdomen, Obese ...Rectal Exam: Yes: Deferred Edema: No Labs: CBC, BMP 01/16/18 06:00 01/16/18 06:00 INR, PTT INR 1.34 (0.83-1.09) H 01/16/18 06:00 Problem List - Problems (1) Hepatic encephalopathy Code(s): K72.90 - HEPATIC FAILURE, UNSPECIFIED WITHOUT COMA (2) Alcoholic liver disease Assessment/Plan: Overall presentation consistent with acute on chronic alcoholic liver disease, MDF 27, remains lethargic, NGT place. Cannot exclude underlying cirrhosis. Started on steroid therapy. Labs not suggestive currently of acute liver failure though needs to be carefully monitored. -Recommend start lactulose, titrate to 2-3 loose bms -Complete infectious workup (blood cultures, UA) as possible precipitant for encephalopathy -WA protocol -Continue to closely monitor and replete electrolytes as needed -Check daily CBC, CMP, PT/INR -Monitor glucose levels -Await AFP levels -Check HBsAb to assess immunity status Code(s): K70.9 - ALCOHOLIC LIVER DISEASE, UNSPECIFIED
[2018-01-16] MEDS: LACTULOSE 20 GM/30 ML UDC (FOR ORAL USE ONLY) NGT PRN (12:51)
[2018-01-16] MEDS: HEPARIN NA (PORCINE) 5,000 UNITS/ML 1ML VIAL SQ SCH ×3 (12:52→21:56)
--- NOTE | 2018-01-16 12:54 | PROC ---
Central Line Insertion Indication: Poor Venous Access Risks and Benefits Explained: No (Pt. has AMS) Consent on Chart: Yes (2 doctor consent ) Central Line: Triple Lumen Catheter Anesthesia: 1% Lidocaine Sterile Technique: Yes (sterile gloves and gown used ) Ultrasound Guided Assistance: No Position: Right Femoral Sterile Dressing Applied: Yes (Biofilm and tegaderm applied )
[2018-01-16 14:17] LABS: MEAN PLT VOLUME 11.6 fl (7.5-11.1); PLATELET COUNT 148 K/MM3 (134-434)
[2018-01-16 14:18] LABS: ANISOCYTOSIS 1+; MACROCYTOSIS 1+
--- NOTE | 2018-01-16 15:03 | ECHO ---
Name: TITO LEWIS Exam:Adult Echocardiogram Study Date: 01/16/2018 11:47 AM Age: 77 yrs Reason For Study: R/O CHF ELEVATED BNP Height: 65 in Weight: 175 lb BSA: 1.9 m2 MMode/2D Measurements & Calculations IVSd: 1.1 cm Ao root diam: 3.0 cm LVIDd: 5.4 cm LA dimension: 3.5 cm LVIDs: 4.1 cm LVPWd: 0.99 cm EDV(Teich): 141.9 ml ESV(Teich): 74.1 ml Doppler Measurements & Calculations MV E max elliott: 36.5 cm/sec TR max elliott: 204.0 cm/sec MV A max elliott: 57.8 cm/sec TR max P.9 mmHg MV E/A: 0.63 Med Peak E' Elliott: 4.0 cm/sec Med E/e': 9.1 Lat Peak E' Elliott: 6.2 cm/sec Lat E/e': 5.9 Procedure A two-dimensional transthoracic echocardiogram with color flow and Doppler was performed. Left Ventricle The left ventricular size, thickness and function are normal. The left ventricular ejection fraction is normal. E/A reversal consistent with but not diagnostic of poor LV compliance. The left ventricular w all motion is normal. Right Ventricle The right ventricle is normal in size and function. Atria Normal left and right atrial size and function. Mitral Valve There is mild mitral valve thickening. There is no mitral valve stenosis. There is trace to mild mitr al regurgitation. Tricuspid Valve There is mild tricuspid valve thickening. There is no tricuspid stenosis. There is mild tricuspid regurgitation. Right ventricular systolic pressure is normal. Aortic Valve The aortic valve is not well visualized. No hemodynamically significant valvular aortic stenosis. No aortic regurgitation is present. Pulmonic Valve The pulmonic valve is not well visualized. Great Vessels The aortic root is normal size. Pericardium/Pleura There is no pericardial effusion. Interpretation Summary The left ventricular size, thickness and function are normal The left ventricular ejection fraction is normal. The left ventricular wall motion is normal. There is mild tricuspid regurgitation. Right ventricular systolic pressure is normal. E/A reversal consistent with but not diagnostic of poor LV compliance The right ventricle is normal in size and function. Normal left and right atrial size and function. MD Brian White 01/16/2018 03:03 PM
[2018-01-16] MEDS ORDERED: FOLIC ACID INJECTION - 1 MG, THIAMINE HCL 100 MG, MULTIVIT INJECTION ADULT 10 ML in SOD... IVPB ONE (15:15)
[2018-01-16] MEDS ORDERED: POTASSIUM PHOSPHATE 30 MM in SODIUM CHLORIDE 500 ML IVPB ONE (15:15)
[2018-01-16] MEDS: methylPREDNISolone NA SUCC 40 MG/1 ML VIAL IVPUSH SCH (15:48)
[2018-01-16] MEDS: PANTOPRAZOLE SODIUM 40 MG VIAL IVPUSH SCH (15:53)
[2018-01-16] MEDS: FOLIC ACID 5 MG/1 ML SQ SCH (15:53)
[2018-01-17] MEDS: THIAMINE HCL 200 MG/2 ML VIAL IVPB SCH ×3 (02:43→18:06)
[2018-01-17] MEDS: HEPARIN NA (PORCINE) 5,000 UNITS/ML 1ML VIAL SQ SCH ×3 (05:21→21:47)
[2018-01-17 07:41] LABS: ALBUMIN 1.9 g/dl (3.4-5.0); ALK PHOS 180 U/L (45-117); ANION GAP 10 MMOL/L (8-16); BILIRUBIN,TOTAL 9.1 mg/dL (0.2-1); BLOOD UREA NITROGEN 14 mg/dL (7-18); CALCIUM 7.1 mg/dL (8.5-10.1); CHLORIDE 110 mmol/L (98-107); CO2 23 mmol/L (21-32); CREATININE 0.7 mg/dL (0.55-1.3); GLUCOSE,RANDOM 84 mg/dL (74-106); MAGNESIUM 1.7 mg/dL (1.8-2.4); PHOSPHOROUS 3.4 mg/dL (2.5-4.9); POTASSIUM 4.1 mmol/L (3.5-5.1); SGOT/AST 101 U/L (15-37); SGPT/ALT 50 U/L (13-61); SODIUM 143 mmol/L (136-145); TOT PROT 4.6 g/dl (6.4-8.2)
[2018-01-17 07:44] LABS: HEMATOCRIT 28.1 % (35.4-49); MCH 35.9 pg (25.7-33.7); MCHC 32.1 g/dl (32.0-35.9); MEAN CELL VOLUME 111.7 fl (80-96); MEAN PLT VOLUME 9.5 fl (7.5-11.1); PLATELET COUNT 113 K/MM3 (134-434); RBC 2.51 M/mm3 (4.00-5.60); RDW 16.7 % (11.9-15.9)
[2018-01-17 07:49] LABS: INR 1.4 (0.83-1.09); PROTHROMBIN TIME (PATIENT) 16.6 SEC (9.7-13.0)
[2018-01-17] MEDS ORDERED: MAGNESIUM SULF 50% (8.12 MEQ/2 ML-1 GM VIAL) IVPB ONE (08:34)
--- NOTE | 2018-01-17 08:40 | PN ---
Teaching Attending Note Name of Resident: Erasto Vicente ATTENDING PHYSICIAN STATEMENT I saw and evaluated the patient. I reviewed the resident's note and discussed the case with the resident. I agree with the resident's findings and plan as documented. SUBJECTIVE: Patient is more awake today, answers to questions, NG-tube in place. OBJECTIVE: Vital Signs Temperature 97.7 F 01/17/18 06:00 Pulse Rate 99 H 01/17/18 06:00 Respiratory Rate 20 01/17/18 06:00 Blood Pressure 153/82 01/17/18 06:00 O2 Sat by Pulse Oximetry (%) 96 01/16/18 21:00 GENERAL: lying in bed with no acute distress. less lethargic today. HEAD: Normal with no signs of trauma. EYES: PERRL, extraocular movements intact, icteric scleral, crusty eyelids. ENT: Ears normal, oropharynx clear without exudates, dry mucous membranes. NECK: Trachea midline, full range of motion, supple, No JVD. LUNGS: decreased BS BL ,with mild crackles. HEART: Regular rate and rhythm, S1, S2 without murmur ABDOMEN: Soft, diffuse abdominal tenderness to palpation, ND, normoactive bowel sounds, no rebound, hepatomegaly, no shifting dullness. Yellow abdomen EXTREMITIES: 2+ dorsal pedal pulses, warm, well-perfused, no calf tenderness no edema, iv site. NEUROLOGICAL: Somnolent, gait not observed. PSYCH: Normal mood, normal affect. SKIN: Warm, dry, normal turgor. spider angioma on the abdomen. CBCD WBC 9.0 K/mm3 (4.0-10.0) 01/17/18 06:00 RBC 2.51 M/mm3 (4.00-5.60) L 01/17/18 06:00 Hgb 9.0 GM/dL (11.7-16.9) L 01/17/18 06:00 Hct 28.1 % (35.4-49) L 01/17/18 06:00 MCV 111.7 fl (80-96) H 01/17/18 06:00 MCHC 32.1 g/dl (32.0-35.9) 01/17/18 06:00 RDW 16.7 % (11.9-15.9) H 01/17/18 06:00 Plt Count 113 K/MM3 (134-434) L D 01/17/18 06:00 MPV 9.5 fl (7.5-11.1) D 01/17/18 06:00 CMP Sodium 143 mmol/L (136-145) 01/17/18 06:00 Potassium 4.1 mmol/L (3.5-5.1) 01/17/18 06:00 Chloride 110 mmol/L (98-107) H 01/17/18 06:00 Carbon Dioxide 23 mmol/L (21-32) 01/17/18 06:00 Anion Gap 10 MMOL/L (8-16) 01/17/18 06:00 BUN 14 mg/dL (7-18) 01/17/18 06:00 Creatinine 0.7 mg/dL (0.55-1.3) 01/17/18 06:00 Creat Clearance w eGFR > 60 (>60) 01/17/18 06:00 Random Glucose 84 mg/dL (74-106) 01/17/18 06:00 Calcium 7.1 mg/dL (8.5-10.1) L 01/17/18 06:00 Total Bilirubin 9.1 mg/dL (0.2-1) H 01/17/18 06:00 AST 101 U/L (15-37) H 01/17/18 06:00 ALT 50 U/L (13-61) 01/17/18 06:00 Alkaline Phosphatase 180 U/L (45-117) H 01/17/18 06:00 Total Protein 4.6 g/dl (6.4-8.2) L 01/17/18 06:00 Albumin 1.9 g/dl (3.4-5.0) L 01/17/18 06:00 Current Medications Generic Name Dose Route Start Last Admin Trade Name Freq PRN Reason Stop Dose Admin Folic Acid 1 mg 01/15/18 10:00 01/16/18 15:53 Folic Acid Injection - SQ Not Given DAILY RUFINA Haloperidol 5 mg 01/15/18 16:54 Haldol Injection (Fast Acting) - IM ONCE PRN AGITATION Heparin Sodium (Porcine) 5,000 unit 01/16/18 10:00 01/17/18 05:21 Heparin - SQ 5,000 unit TID RUFINA Administration Lactated Ringer's 1,000 ml in 1,000 mls @ 100 mls/hr 01/15/18 10:37 Lactated Ringers Solution IV ASDIR RUFINA Lactulose 20 gm 01/15/18 18:03 01/16/18 12:51 Cephulac (Oral Use) NGT 20 gm Q8H PRN Administration CONSTIPATION Magnesium Sulfate 2 gm 01/17/18 08:34 Magnesium Sulfate IVPB 01/17/18 08:35 ONCE ONE Methylprednisolone Sodium Succinate 32 mg 01/15/18 17:00 01/16/18 15:48 Solu-Medrol - IVPUSH 32 mg DAILY RUFINA Administration Pantoprazole Sodium 40 mg 01/15/18 18:15 01/16/18 15:53 Protonix Iv IVPUSH 40 mg DAILY RUFINA Administration Thiamine HCl 500 mg 01/15/18 19:00 01/17/18 02:43 Vitamin B1 Injection - IVPB 500 mg Q8H-IV RUFINA Administration Home Medications Medication Instructions Recorded Allopurinol [Zyloprim -] 300 mg PO DAILY 01/14/18 Amlodipine Besylate [Norvasc -] 5 mg PO DAILY 01/14/18 Aspirin 81 mg PO DAILY 01/14/18 Atorvastatin Ca [Lipitor] 40 mg PO HS 01/14/18 Labetalol HCl 100 mg PO BID 01/14/18 01/14/18 18:36 Urine - Urine - Catheterized Urine Culture - Final NO GROWTH OBTAINED 01/14/18 18:50 Blood - Peripheral Venous Blood Culture - Preliminary Staphylococcus Coagulase Neg 01/14/18 18:40 Blood - Peripheral Venous Blood Culture - Preliminary NO GROWTH OBTAINED AFTER 24 HOURS, INCUBATION TO CONTINUE FOR 4 DAYS. Normal Echo as per read Head CT : chronic infarct ASSESSMENT AND PLAN: Patient is a 77yo man with h/o Alcoholism, HLP, HTN, gout and smoking who presented from [facility] with AMS. # Acute metabolic encephalopathy due to alcohol withdrawal with alcoholic liver disease , improving continue IV thiamine 500 q8h x 2 days then 250 daily x 5 more days. # Acute Transaminitis: due to alcoholic hepatitis. US positive for Gall stones but no cholecystitis . Cannot do MRCP due unable to answer the questions. CT of head and ABd/pelvix and cxray did not show any metal , MAddry's DF 25. As per GI to start the patient on steroid. follow the labs. # Acute Bilirubinemia 9.1 today, will monitor the level, GI consult appreciated # Acute on chronic pancreatitis due to alcoholism with NL Lipase. # ETOH withdrawal: continue thiamine, prn ativan with low dose due to metabolic encephalopathy. 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 DVT px : heparin sq.
[2018-01-17] MEDS: methylPREDNISolone NA SUCC 40 MG/1 ML VIAL IVPUSH SCH (09:32)
[2018-01-17] MEDS: PANTOPRAZOLE SODIUM 40 MG VIAL IVPUSH SCH (09:35)
[2018-01-17] MEDS: FOLIC ACID 5 MG/1 ML SQ SCH (09:46)
[2018-01-17] MEDS: LACTATED RINGERS SOLUTION 1,000 ML/1,000 ML INFUS.BAG IV SCH ×2 (09:48→18:08)
--- NOTE | 2018-01-17 13:14 | PN ---
Physical Exam: SUBJECTIVE: Patient seen and examined. Pt. pulled out NG Tube over night and there fore was unable to receive evening dose of lactulose as NG Tube replacement could not be confirmed with X-ray before ~8am. Pt. did not have BM. Pt. was very combative and agitated overnight. OBJECTIVE: Vital Signs Period Temp Pulse Resp BP Sys/Glynn Pulse Ox Last 24 Hr 97.1 F-98.7 F 83-99 20-20 144-153/70-87 94-96 GENERAL: The patient is more awake, arousable to tactile and verbal stimuli. HEAD: Normal with no signs of trauma. EYES: PERRL, Sclera icterus, conjunctiva clear. No ptosis. ENT: Ears normal, nares patent, oropharynx clear without exudates, moist mucous membranes, No JVD NECK: Trachea midline, full range of motion, supple. LUNGS: Diffuse crackles, mild wheezing, gurgling when speaking, no accessory muscle use, coarse breath sounds HEART: Regular rate and rhythm, S1, S2 without murmur ABDOMEN: Soft, diffuse TTP most prominent in RUQ, epigastrium and LLQ, tympanic to percussion, nondistended, normoactive bowel sounds, no guarding, no rebound, hepatomegaly and splenomegaly, no masses. EXTREMITIES: 2+ dorsal pedal and left radial pulses, warm, well-perfused, no calf tenderness, no edema. NEUROLOGICAL: Speaking more coherently today but still confused, gait not observed. PSYCH: Normal mood, normal affect. SKIN: Warm, dry, normal turgor, angiomas noted under panniculus and in groin( not vesicular in nature as was previously noted) Laboratory Results - last 24 hr 01/16/18 01/16/18 01/17/18 06:00 06:00 06:00 WBC 9.0 RBC 2.51 L Hgb 9.0 L Hct 28.1 L MCV 111.7 H MCH 35.9 H MCHC 32.1 RDW 16.7 H Plt Count 148 D 113 L D MPV 11.6 H D 9.5 D Total Counted 100 Neutrophils % (Manual) 70.0 Band Neutrophils % 9.0 Lymphocytes % (Manual) 10.0 Monocytes % (Manual) 6 Eosinophils % (Manual) 2.0 Basophils % (Manual) 0.0 Myelocytes % (Man) 0 D Promyelocytes % (Man) 0 Blast Cells % (Manual) 0 Metamyelocytes 3 H D Hypochromia 0 Toxic Granulation 0 Dohle Bodies 0 Platelet Estimate Decreased Polychromasia 0 Poikilocytosis 0 Basophilic Stippling 0 Anisocytosis 1+ Microcytosis 0 Macrocytosis 1+ Spherocytes 0 Sickle Cells 0 Target Cells 0 Tear Drop Cells 0 Ovalocytes 0 Stomatocytes 0 Helmet Cells [address] [place] Bodies 0 [place] Rings 0 Carole Cells 0 Acanthocytes (Spur) 0 Rouleaux 0 Fragmented RBCs 0 Schistocytes 0 PT with INR INR Sodium Potassium Chloride Carbon Dioxide Anion Gap BUN Creatinine Creat Clearance w eGFR Random Glucose Calcium Phosphorus Magnesium Total Bilirubin AST ALT Alkaline Phosphatase Total Protein Albumin Tumor Marker AFP 3.6 01/17/18 01/17/18 06:00 06:00 WBC RBC Hgb Hct MCV MCH MCHC RDW Plt Count MPV Total Counted Neutrophils % (Manual) Band Neutrophils % Lymphocytes % (Manual) Monocytes % (Manual) Eosinophils % (Manual) Basophils % (Manual) Myelocytes % (Man) Promyelocytes % (Man) Blast Cells % (Manual) Metamyelocytes Hypochromia Toxic Granulation Dohle Bodies Platelet Estimate Polychromasia Poikilocytosis Basophilic Stippling Anisocytosis Microcytosis Macrocytosis Spherocytes Sickle Cells Target Cells Tear Drop Cells Ovalocytes Stomatocytes Helmet Cells [place] Bodies [place] Rings Carole Cells Acanthocytes (Spur) Rouleaux Fragmented RBCs Schistocytes PT with INR 16.60 H INR 1.40 H Sodium 143 Potassium 4.1 Chloride 110 H Carbon Dioxide 23 Anion Gap 10 BUN 14 Creatinine 0.7 Creat Clearance w eGFR > 60 Random Glucose 84 Calcium 7.1 L Phosphorus 3.4 Magnesium 1.7 L Total Bilirubin 9.1 H AST 101 H ALT 50 Alkaline Phosphatase 180 H Total Protein 4.6 L Albumin 1.9 L Tumor Marker AFP Active Medications Home Medications Medication Instructions Recorded Allopurinol [Zyloprim -] 300 mg PO DAILY 01/14/18 Amlodipine Besylate [Norvasc -] 5 mg PO DAILY 01/14/18 Aspirin 81 mg PO DAILY 01/14/18 Atorvastatin Ca [Lipitor] 40 mg PO HS 01/14/18 Labetalol HCl 100 mg PO BID 01/14/18 Current Medications Folic Acid (Folic Acid Injection -) 1 mg SQ DAILY RUFINA Last Admin: 01/17/18 09:46 Dose: 1 mg Haloperidol (Haldol Injection (Fast Acting) -) 5 mg IM ONCE PRN PRN Reason: AGITATION Heparin Sodium (Porcine) (Heparin -) 5,000 unit SQ TID [facility] Last Admin: 01/17/18 05:21 Dose: 5,000 unit Lactated Ringer's (Lactated Ringers Solution) 1,000 ml in 1,000 mls @ 100 mls/ hr IV ASDIR [facility] Last Admin: 01/17/18 09:48 Dose: Not Given Lactulose (Cephulac (Oral Use)) 20 gm NGT Q8H PRN PRN Reason: CONSTIPATION Last Admin: 01/16/18 12:51 Dose: 20 gm Methylprednisolone Sodium Succinate (Solu-Medrol -) 32 mg IVPUSH DAILY [facility] Last Admin: 01/17/18 09:32 Dose: 32 mg Pantoprazole Sodium (Protonix Iv) 40 mg IVPUSH DAILY [facility] Last Admin: 01/17/18 09:35 Dose: 40 mg Thiamine HCl (Vitamin B1 Injection -) 500 mg IVPB Q8H-IV [facility] Last Admin: 01/17/18 11:10 Dose: 500 mg ASSESSMENT/PLAN: 77 y/o M w/ PMHx. EtOH abuse presented from [facility] w/ AMS 2/2 hepatic encephalopathy w/ associated cholelithiasis and chronic pancreatitis. #Hepatic encephalopathy 2/2 cirrhosis and benzodiazepine usage -CIWA score: 10 based on agitation and tremor -Maddrey: 34.9 as calculated by me (using a reference PT of 11, would be 30.9 if 12 is used). -LFTs trending down however TBili increased from 9.6-->9.1 -D/C Ativan. AVOID Benzodiazepene usage per Dr. Hassan (GI Consult), as Pt. has decreased clearance of benzos. -Started IV Solumedrol 32mg Daily -started Protonix 40mg IVP Daily -Haldol PRN for agitation -Lactulose 20gm TID -NGT placed 01/15/18 -replete Magnesium -daily thiamine and folate -monitor and replete electrolytes -S/S consultation appreciated -fall risk precautions -aspiration precautions -elevate HOB -NPO -f/u MRCP, when consent can be obtained. Pt.'s family is not involved with the Pt.s life -Abdominal US: cholelithiasis w/o cholecystitis, hepatomegaly w/ diffuse fatty infiltration -Abdominal CT noted -UTox: Positive for Benzos -AFP wnl (3.6) #R/O CHF -BNP: 3,389 -monitor volume status -echo: mild MR, normal EF, normal size, thickness and function of LV #FEN -LR @ 100ml/hr -monitor and replete electrolytes -NPO #PPx -DVT: Lovenox SQ -GI: Protonix 40mg IVP #code -Full #dispo -Admit to med/surg Visit type - Emergency Visit Emergency Visit: Yes ED Registration Date: 01/14/18 Care time: The patient presented to the Emergency Department on the above date and was hospitalized for further evaluation of their emergent condition. - New Patient This patient is new to me today: No - Critical Care Critical Care patient: No - Discharge Referral Referred to [facility] Med P.C.: No
[2018-01-17] MEDS: LACTULOSE 20 GM/30 ML UDC (FOR ORAL USE ONLY) NGT PRN (15:48)
[2018-01-18] MEDS: THIAMINE HCL 200 MG/2 ML VIAL IVPB SCH ×4 (01:55→17:23)
[2018-01-18] MEDS: LACTATED RINGERS SOLUTION 1,000 ML/1,000 ML INFUS.BAG IV SCH ×2 (06:12→12:24)
[2018-01-18] MEDS: HEPARIN NA (PORCINE) 5,000 UNITS/ML 1ML VIAL SQ SCH ×3 (06:12→22:34)
[2018-01-18 08:02] LABS: INR 1.2 (0.83-1.09); PROTHROMBIN TIME (PATIENT) 14.2 SEC (9.7-13.0)
[2018-01-18 08:08] LABS: ALBUMIN 1.9 g/dl (3.4-5.0); ALK PHOS 181 U/L (45-117); ANION GAP 7 MMOL/L (8-16); BILIRUBIN,DIRECT 7.3 mg/dL (0.0-0.2); BILIRUBIN,TOTAL 8.5 mg/dL (0.2-1); BLOOD UREA NITROGEN 17 mg/dL (7-18); CHLORIDE 110 mmol/L (98-107); CO2 25 mmol/L (21-32); CREATININE 0.7 mg/dL (0.55-1.3); GLUCOSE,RANDOM 69 mg/dL (74-106); MAGNESIUM 1.5 mg/dL (1.8-2.4); PHOSPHOROUS 2.2 mg/dL (2.5-4.9); POTASSIUM 3.9 mmol/L (3.5-5.1); SGOT/AST 108 U/L (15-37); SGPT/ALT 56 U/L (13-61); SODIUM 142 mmol/L (136-145); TOT PROT 4.7 g/dl (6.4-8.2)
[2018-01-18] MEDS ORDERED: CALCIUM CARBONATE SUSPENSION - 500 MG/5 ML ML PO ONE (09:15)
[2018-01-18 09:24] LABS: BASO % 0.7 % (0-2.0); EOS % 0.2 % (0-4.5); HEMATOCRIT 29.8 % (35.4-49); HEMOGLOBIN 9.6 GM/dL (11.7-16.9); LYMPH % 10.4 % (8-40); MCH 35.8 pg (25.7-33.7); MCHC 32.1 g/dl (32.0-35.9); MEAN CELL VOLUME 111.4 fl (80-96); MEAN PLT VOLUME 9.7 fl (7.5-11.1); MONO % 9.1 % (3.8-10.2); NEUT % 79.6 % (42.8-82.8); PLATELET COUNT 139 K/MM3 (134-434); RBC 2.68 M/mm3 (4.00-5.60); RDW 16.9 % (11.9-15.9); WHITE BLOOD COUNT 9.8 K/mm3 (4.0-10.0)
[2018-01-18 09:38] LABS: CALCIUM 7.4 mg/dL (8.5-10.1)
--- NOTE | 2018-01-18 11:35 | PN ---
Physical Exam: SUBJECTIVE: Patient seen and examined. Pt. did not have a BM over night. Pt. pulled out NG tube, NGT replaced and confirmed with x-ray. Pt. states that he hurts all over, however is still confused and makes unintelligible grunts frequently. NGT removed this later today. OBJECTIVE: Vital Signs Period Temp Pulse Resp BP Sys/Glynn Pulse Ox Last 24 Hr 97.9 F-98 F 80-87 20-20 145-150/91-93 93 GENERAL: The patient is more awake, arousable to tactile and verbal stimuli. HEAD: Normal with no signs of trauma. EYES: PERRL, Sclera icterus, conjunctiva clear. No ptosis. ENT: Ears normal, nares patent, oropharynx clear without exudates, moist mucous membranes, No JVD NECK: Trachea midline, full range of motion, supple. LUNGS: Diffuse crackles, mild wheezing, gurgling when speaking, no accessory muscle use, coarse breath sounds HEART: Regular rate and rhythm, S1, S2 without murmur ABDOMEN: Soft, diffuse TTP most prominent in LUQ, epigastrium, periumbilical and LLQ, tympanic to percussion, nondistended, normoactive bowel sounds, no guarding, no rebound, hepatomegaly and splenomegaly, no masses. EXTREMITIES: 2+ dorsal pedal and left radial pulses, warm, well-perfused, no calf tenderness, no edema. NEUROLOGICAL: Speaking more coherently today but still confused, gait not observed. PSYCH: Normal mood, normal affect. SKIN: Warm, dry, normal turgor, angiomas noted under panniculus and in groin( not vesicular in nature as was previously noted) Laboratory Results - last 24 hr 01/16/18 01/18/18 01/18/18 06:00 06:00 06:00 WBC 9.8 RBC 2.68 L Hgb 9.6 L Hct 29.8 L MCV 111.4 H MCH 35.8 H MCHC 32.1 RDW 16.9 H Plt Count 139 D MPV 9.7 Absolute Neuts (auto) 7.8 Neutrophils % 79.6 Lymphocytes % 10.4 Monocytes % 9.1 Eosinophils % 0.2 D Basophils % 0.7 Nucleated RBC % 0 PT with INR 14.20 H INR 1.20 H Sodium Potassium Chloride Carbon Dioxide Anion Gap BUN Creatinine Creat Clearance w eGFR Random Glucose Calcium Phosphorus Magnesium Total Bilirubin Direct Bilirubin AST ALT Alkaline Phosphatase Total Protein Albumin KAROL Screen Negative Smooth Musc &NURSE RESEARCH Intrp 9 Hep C Ab Diagnostic <0.1 01/18/18 06:00 WBC RBC Hgb Hct MCV MCH MCHC RDW Plt Count MPV Absolute Neuts (auto) Neutrophils % Lymphocytes % Monocytes % Eosinophils % Basophils % Nucleated RBC % PT with INR INR Sodium 142 Potassium 3.9 Chloride 110 H Carbon Dioxide 25 Anion Gap 7 L BUN 17 Creatinine 0.7 Creat Clearance w eGFR > 60 Random Glucose 69 L Calcium 7.4 L Phosphorus 2.2 L Magnesium 1.5 L Total Bilirubin 8.5 H Direct Bilirubin 7.3 H AST 108 H ALT 56 Alkaline Phosphatase 181 H Total Protein 4.7 L Albumin 1.9 L KAROL Screen Smooth Musc &NURSE RESEARCH Intrp Hep C Ab Diagnostic Active Medications Home Medications Medication Instructions Recorded Allopurinol [Zyloprim -] 300 mg PO DAILY 01/14/18 Amlodipine Besylate [Norvasc -] 5 mg PO DAILY 01/14/18 Aspirin 81 mg PO DAILY 01/14/18 Atorvastatin Ca [Lipitor] 40 mg PO HS 01/14/18 Labetalol HCl 100 mg PO BID 01/14/18 Current Medications Folic Acid (Folic Acid Injection -) 1 mg SQ DAILY [facility] Last Admin: 01/17/18 09:46 Dose: 1 mg Haloperidol (Haldol Injection (Fast Acting) -) 5 mg IM ONCE PRN PRN Reason: AGITATION Heparin Sodium (Porcine) (Heparin -) 5,000 unit SQ TID [facility] Last Admin: 01/18/18 06:12 Dose: 5,000 unit Lactated Ringer's (Lactated Ringers Solution) 1,000 ml in 1,000 mls @ 100 mls/ hr IV ASDIR [facility] Last Admin: 01/18/18 12:24 Dose: Not Given Lactulose (Cephulac (Oral Use)) 20 gm NGT TID [facility] Last Admin: 01/18/18 11:36 Dose: 20 gm Methylprednisolone Sodium Succinate (Solu-Medrol -) 32 mg IVPUSH DAILY [facility] Last Admin: 01/18/18 12:23 Dose: 32 mg Pantoprazole Sodium (Protonix Iv) 40 mg IVPUSH DAILY [facility] Last Admin: 01/18/18 11:36 Dose: 40 mg Thiamine HCl (Vitamin B1 Injection -) 500 mg IVPB Q8H-IV [facility] Last Admin: 01/18/18 12:23 Dose: 500 mg ASSESSMENT/PLAN: 77 y/o M w/ PMHx. EtOH abuse presented from [facility] w/ AMS 2/2 hepatic encephalopathy w/ associated cholelithiasis and chronic pancreatitis. #Hepatic encephalopathy 2/2 cirrhosis and benzodiazepine usage -CIWA score: 6 based on agitation, confusion and tremor -Maddrey: 23.2 as calculated by me (using a reference PT of 11, would be 18.6 if 12 is used). -LFTs trending down however TBili decreased from 9.1-->8.5 -D/C Ativan. AVOID Benzodiazepene usage per Dr. Hassan (GI Consult), as Pt. has decreased clearance of benzos. -Started IV Solumedrol 32mg Daily -started Protonix 40mg IVP Daily -Haldol PRN for agitation -Lactulose 20gm TID -NGT placed 01/15/18; removed 01/18/18 -replete Magnesium -daily thiamine and folate -monitor and replete electrolytes -S/S consultation appreciated -fall risk precautions -aspiration precautions -elevate HOB -f/u MRCP, when consent can be obtained. Pt.'s family is not involved with the Pt.s life -Abdominal US: cholelithiasis w/o cholecystitis, hepatomegaly w/ diffuse fatty infiltration -Abdominal CT noted -UTox: Positive for Benzos -AFP wnl (3.6) #R/O Scabies vs. Hyperbilirubinemia induced pruritis -Pt. noted to have angiomas in inguinal region of skin. -f/u ID consult recommendations (Dr. Paris) #R/O CHF -BNP: 3,389 -monitor volume status -echo: mild MR, normal EF, normal size, thickness and function of LV #FEN -LR @ 100ml/hr -monitor and replete electrolytes -Dysphagia puree nectar thick liquids diet #PPx -DVT: Lovenox SQ -GI: Protonix 40mg IVP #Code -Full #Dispo -Med/surg--> SNF on discharge Visit type - Emergency Visit Emergency Visit: Yes ED Registration Date: 01/14/18 Care time: The patient presented to the Emergency Department on the above date and was hospitalized for further evaluation of their emergent condition. - New Patient This patient is new to me today: No - Critical Care Critical Care patient: No - Discharge Referral Referred to [facility] Med P.C.: No
[2018-01-18] MEDS: PANTOPRAZOLE SODIUM 40 MG VIAL IVPUSH SCH (11:36)
[2018-01-18] MEDS: methylPREDNISolone NA SUCC 40 MG/1 ML VIAL IVPUSH SCH ×2 (11:36→12:23)
[2018-01-18] MEDS: LACTULOSE 20 GM/30 ML UDC (FOR ORAL USE ONLY) NGT SCH ×2 (11:36→16:45)
--- NOTE | 2018-01-18 12:23 | PN ---
Progress Note, [employer] - Note Progress Note: Selected Entries 01/17/18 01/17/18 01/17/18 06:00 10:00 19:22 Temperature 97.7 F 97.1 F L 97.9 F 01/18/18 05:48 Temperature 98 F Laboratory Tests 01/18/18 06:00 WBC 9.8 Pt alert and cooperative. Dys puree/nectar thick liquid ordered. Pt seen bedside, having lunch. Good appetite and tolerance. Continue diet ordered. Monitor tolerance.
[2018-01-18 13:12] LABS: ANISOCYTOSIS 1+; MACROCYTOSIS 1+; PLATELET ESTIMATE DECREASED
--- NOTE | 2018-01-18 16:11 | PN ---
Teaching Attending Note Name of Resident: Erasto Vicente ATTENDING PHYSICIAN STATEMENT I saw and evaluated the patient. I reviewed the resident's note and discussed the case with the resident. I agree with the resident's findings and plan as documented. SUBJECTIVE: Patient is improving but slowly, answers the questions. OBJECTIVE: Vital Signs Temperature 97.5 F L 01/18/18 13:55 Pulse Rate 85 01/18/18 13:55 Respiratory Rate 20 01/18/18 13:55 Blood Pressure 110/67 01/18/18 13:55 O2 Sat by Pulse Oximetry (%) 93 L 01/17/18 21:00 GENERAL: lying in bed with no acute distress. less lethargic today. HEAD: Normal with no signs of trauma. EYES: PERRL, extraocular movements intact, icteric scleral, crusty eyelids improved . ENT: Ears normal, oropharynx clear without exudates, dry mucous membranes. NECK: Trachea midline, full range of motion, supple, No JVD. LUNGS: decreased BS BL ,with mild crackles. HEART: Regular rate and rhythm, S1, S2 without murmur ABDOMEN: Soft, diffuse abdominal tenderness to palpation, ND, normoactive bowel sounds, no rebound, hepatomegaly, no shifting dullness. Yellow abdomen EXTREMITIES: 2+ dorsal pedal pulses, warm, well-perfused, no calf tenderness no edema, iv site. NEUROLOGICAL: Somnolent, gait not observed. PSYCH: Normal mood, normal affect. SKIN: Warm, dry, normal turgor. spider angioma on the abdomen. CBCD WBC 9.8 K/mm3 (4.0-10.0) 01/18/18 06:00 RBC 2.68 M/mm3 (4.00-5.60) L 01/18/18 06:00 Hgb 9.6 GM/dL (11.7-16.9) L 01/18/18 06:00 Hct 29.8 % (35.4-49) L 01/18/18 06:00 MCV 111.4 fl (80-96) H 01/18/18 06:00 MCHC 32.1 g/dl (32.0-35.9) 01/18/18 06:00 RDW 16.9 % (11.9-15.9) H 01/18/18 06:00 Plt Count 139 K/MM3 (134-434) D 01/18/18 06:00 MPV 9.7 fl (7.5-11.1) 01/18/18 06:00 CMP Sodium 142 mmol/L (136-145) 01/18/18 06:00 Potassium 3.9 mmol/L (3.5-5.1) 01/18/18 06:00 Chloride 110 mmol/L (98-107) H 01/18/18 06:00 Carbon Dioxide 25 mmol/L (21-32) 01/18/18 06:00 Anion Gap 7 MMOL/L (8-16) L 01/18/18 06:00 BUN 17 mg/dL (7-18) 01/18/18 06:00 Creatinine 0.7 mg/dL (0.55-1.3) 01/18/18 06:00 Creat Clearance w eGFR > 60 (>60) 01/18/18 06:00 Random Glucose 69 mg/dL (74-106) L 01/18/18 06:00 Calcium 7.4 mg/dL (8.5-10.1) L 01/18/18 06:00 Total Bilirubin 8.5 mg/dL (0.2-1) H 01/18/18 06:00 AST 108 U/L (15-37) H 01/18/18 06:00 ALT 56 U/L (13-61) 01/18/18 06:00 Alkaline Phosphatase 181 U/L (45-117) H 01/18/18 06:00 Total Protein 4.7 g/dl (6.4-8.2) L 01/18/18 06:00 Albumin 1.9 g/dl (3.4-5.0) L 01/18/18 06:00 Current Medications Generic Name Dose Route Start Last Admin Trade Name Freq PRN Reason Stop Dose Admin Folic Acid 1 mg 01/15/18 10:00 01/17/18 09:46 Folic Acid Injection - SQ 1 mg DAILY [facility] Administration Haloperidol 5 mg 01/15/18 16:54 Haldol Injection (Fast Acting) - IM ONCE PRN AGITATION Heparin Sodium (Porcine) 5,000 unit 01/16/18 10:00 01/18/18 06:12 Heparin - SQ 5,000 unit TID [facility] Administration Lactated Ringer's 1,000 ml in 1,000 mls @ 100 mls/hr 01/15/18 10:37 01/18/18 12:24 Lactated Ringers Solution IV Not Given ASDIR [facility] Lactulose 20 gm 01/18/18 08:00 01/18/18 11:36 Cephulac (Oral Use) NGT 20 gm TID [facility] Administration Methylprednisolone Sodium Succinate 32 mg 01/15/18 17:00 01/18/18 12:23 Solu-Medrol - IVPUSH 32 mg DAILY [facility] Administration Pantoprazole Sodium 40 mg 01/15/18 18:15 01/18/18 11:36 Protonix Iv IVPUSH 40 mg DAILY [facility] Administration Thiamine HCl 500 mg 01/15/18 19:00 01/18/18 12:23 Vitamin B1 Injection - IVPB 500 mg Q8H-IV [facility] Administration Home Medications Medication Instructions Recorded Allopurinol [Zyloprim -] 300 mg PO DAILY 01/14/18 Amlodipine Besylate [Norvasc -] 5 mg PO DAILY 01/14/18 Aspirin 81 mg PO DAILY 01/14/18 Atorvastatin Ca [Lipitor] 40 mg PO HS 01/14/18 Labetalol HCl 100 mg PO BID 01/14/18 ASSESSMENT AND PLAN: Patient is a 77yo man with h/o Alcoholism, HLP, HTN, gout and smoking who presented from [facility] with AMS. # Acute metabolic encephalopathy due to alcohol withdrawal with alcoholic liver disease , improving,Patient is more awake today , will continue IV thiamine on 250 daily x for total 5 more days. # Acute Transaminitis: due to alcoholic hepatitis. US positive for Gall stones but no cholecystitis . Cannot do MRCP due unable to answer the questions. CT of head and ABd/pelvix and cxray did not show any metal , MAddry's DF 25. As per GI to start the patient on steroid. follow the labs. # Acute Bilirubinemia 9.1-->8.5 today, will monitor the level, GI consult appreciated # Acute on chronic pancreatitis due to alcoholism with NL Lipase. # ETOH withdrawal: continue thiamine, prn ativan with low dose due to metabolic encephalopathy. 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 DVT px : heparin sq.
[2018-01-18] MEDS ORDERED: LACTULOSE 20 GM/30 ML UDC (FOR ORAL USE ONLY) NGT SCH (16:29)
[2018-01-18] MEDS: FOLIC ACID 5 MG/1 ML SQ SCH (17:19)
[2018-01-18] MEDS: LACTULOSE 20 GM/30 ML UDC (FOR ORAL USE ONLY) PO SCH (22:35)
[2018-01-19] MEDS: THIAMINE HCL 200 MG/2 ML VIAL IVPB SCH ×3 (02:34→17:35)
[2018-01-19] MEDS: HEPARIN NA (PORCINE) 5,000 UNITS/ML 1ML VIAL SQ SCH ×3 (05:50→23:05)
[2018-01-19] MEDS: LACTULOSE 20 GM/30 ML UDC (FOR ORAL USE ONLY) PO SCH ×3 (05:50→23:05)
[2018-01-19 07:27] LABS: HEMATOCRIT 29.5 % (35.4-49); HEMOGLOBIN 10.2 GM/dL (11.7-16.9); MCH 38.1 pg (25.7-33.7); MCHC 34.5 g/dl (32.0-35.9); MEAN CELL VOLUME 110.4 fl (80-96); MEAN PLT VOLUME 9.7 fl (7.5-11.1); PLATELET COUNT 158 K/MM3 (134-434); RBC 2.67 M/mm3 (4.00-5.60); RDW 16.5 % (11.9-15.9); WHITE BLOOD COUNT 9.6 K/mm3 (4.0-10.0)
--- NOTE | 2018-01-19 07:30 | PN ---
Progress Note, Physician Chief Complaint: no new complaints ; patient appears confused no GI complaints - Current Medication List Current Medications: Active Medications Folic Acid (Folic Acid Injection -) 1 mg SQ DAILY [facility] Last Admin: 01/18/18 17:19 Dose: 1 mg Haloperidol (Haldol Injection (Fast Acting) -) 5 mg IM ONCE PRN PRN Reason: AGITATION Heparin Sodium (Porcine) (Heparin -) 5,000 unit SQ TID [facility] Last Admin: 01/19/18 05:50 Dose: 5,000 unit Lactated Ringer's (Lactated Ringers Solution) 1,000 ml in 1,000 mls @ 100 mls/ hr IV ASDIR [facility] Last Admin: 01/18/18 12:24 Dose: Not Given Lactulose (Cephulac (Oral Use)) 20 gm PO TID [facility] Last Admin: 01/19/18 05:50 Dose: 20 gm Methylprednisolone Sodium Succinate (Solu-Medrol -) 32 mg IVPUSH DAILY [facility] Last Admin: 01/18/18 12:23 Dose: 32 mg Pantoprazole Sodium (Protonix Iv) 40 mg IVPUSH DAILY [facility] Last Admin: 01/18/18 11:36 Dose: 40 mg Thiamine HCl (Vitamin B1 Injection -) 500 mg IVPB Q8H-IV [facility] Last Admin: 01/19/18 02:34 Dose: 500 mg - Objective Vital Signs: Vital Signs Temperature 98.4 F 01/19/18 06:00 Pulse Rate 86 01/19/18 06:00 Respiratory Rate 18 01/19/18 06:00 Blood Pressure 153/94 01/19/18 06:00 O2 Sat by Pulse Oximetry (%) 97 01/18/18 22:00 Constitutional: Yes: Well Nourished, No Distress, Calm Eyes: Yes: Sclera Icterus HENT: Yes: WNL Neck: Yes: WNL Cardiovascular: Yes: WNL, Regular Rate and Rhythm Respiratory: Yes: WNL, Regular, CTA Bilaterally Gastrointestinal: Yes: WNL, Normal Bowel Sounds, Soft, Other (nontender , no shifting dullness) Edema: No Labs: INR, PTT INR 1.20 (0.83-1.09) H 01/18/18 06:00 Problem List - Problems (1) Alcoholic liver disease Assessment/Plan: DF less than 32 at this time ; he has been on IV steriod therapy since admission. Change to prednisolone 40 mg po qd - total 30 day course is needed for DF above 32. c/w lactulose 30 cc TID titrate to 3 BM qd will add rifaximin c/w PPI avoid benzo & NSAID ; low dose tylenol may be used for pain if needed 2 gram sodium diet trend LFT and coags daily ' Code(s): K70.9 - ALCOHOLIC LIVER DISEASE, UNSPECIFIED (2) Hepatic encephalopathy Code(s): K72.90 - HEPATIC FAILURE, UNSPECIFIED WITHOUT COMA (3) Alcohol dependence with uncomplicated withdrawal Code(s): F10.230 - ALCOHOL DEPENDENCE WITH WITHDRAWAL, UNCOMPLICATED
[2018-01-19 08:10] LABS: ALK PHOS 216 U/L (45-117); ANION GAP 8 MMOL/L (8-16); BILIRUBIN,DIRECT 7.5 mg/dL (0.0-0.2); BILIRUBIN,TOTAL 8.6 mg/dL (0.2-1); BLOOD UREA NITROGEN 15 mg/dL (7-18); CALCIUM 7.4 mg/dL (8.5-10.1); CHLORIDE 112 mmol/L (98-107); CO2 25 mmol/L (21-32); CREATININE 0.9 mg/dL (0.55-1.3); GLUCOSE,RANDOM 87 mg/dL (74-106); MAGNESIUM 1.6 mg/dL (1.8-2.4); PHOSPHOROUS 1.9 mg/dL (2.5-4.9); POTASSIUM 3.7 mmol/L (3.5-5.1); SGOT/AST 167 U/L (15-37); SGPT/ALT 83 U/L (13-61); SODIUM 144 mmol/L (136-145); TOT PROT 4.8 g/dl (6.4-8.2)
[2018-01-19] MEDS: methylPREDNISolone NA SUCC 40 MG/1 ML VIAL IVPUSH SCH ×2 (11:49→11:50)
[2018-01-19] MEDS: PANTOPRAZOLE SODIUM 40 MG VIAL IVPUSH SCH (11:49)
[2018-01-19] MEDS: FOLIC ACID 5 MG/1 ML SQ SCH (11:50)
--- NOTE | 2018-01-19 17:28 | PN ---
Progress Note (short form) - Note Progress Note: Vital Signs Temperature 98.1 F 01/19/18 14:09 Pulse Rate 79 01/19/18 14:09 Respiratory Rate 20 01/19/18 14:09 Blood Pressure 127/63 01/19/18 14:09 O2 Sat by Pulse Oximetry (%) 95 01/19/18 10:00 GENERAL: lying in bed with no acute distress. less lethargic today. HEAD: Normal with no signs of trauma. EYES: PERRL, extraocular movements intact, icteric scleral, crusty eyelids. ENT: Ears normal, oropharynx clear without exudates, dry mucous membranes. NECK: Trachea midline, full range of motion, supple, No JVD. LUNGS: decreased BS BL ,with mild crackles. HEART: Regular rate and rhythm, S1, S2 without murmur ABDOMEN: Soft, diffuse abdominal tenderness to palpation, ND, normoactive bowel sounds, no rebound, hepatomegaly, no shifting dullness. Yellow abdomen EXTREMITIES: 2+ dorsal pedal pulses, warm, well-perfused, no calf tenderness no edema, iv site. NEUROLOGICAL: Somnolent, gait not observed. PSYCH: Normal mood, normal affect. SKIN: Warm, dry, normal turgor. spider angioma on the abdomen. CBCD WBC 9.6 K/mm3 (4.0-10.0) 01/19/18 06:00 RBC 2.67 M/mm3 (4.00-5.60) L 01/19/18 06:00 Hgb 10.2 GM/dL (11.7-16.9) L 01/19/18 06:00 Hct 29.5 % (35.4-49) L 01/19/18 06:00 MCV 110.4 fl (80-96) H 01/19/18 06:00 MCHC 34.5 g/dl (32.0-35.9) 01/19/18 06:00 RDW 16.5 % (11.9-15.9) H 01/19/18 06:00 Plt Count 158 K/MM3 (134-434) 01/19/18 06:00 MPV 9.7 fl (7.5-11.1) 01/19/18 06:00 CMP Sodium 144 mmol/L (136-145) 01/19/18 06:00 Potassium 3.7 mmol/L (3.5-5.1) 01/19/18 06:00 Chloride 112 mmol/L (98-107) H 01/19/18 06:00 Carbon Dioxide 25 mmol/L (21-32) 01/19/18 06:00 Anion Gap 8 MMOL/L (8-16) 01/19/18 06:00 BUN 15 mg/dL (7-18) 01/19/18 06:00 Creatinine 0.9 mg/dL (0.55-1.3) 01/19/18 06:00 Creat Clearance w eGFR > 60 (>60) 01/19/18 06:00 Random Glucose 87 mg/dL (74-106) 01/19/18 06:00 Calcium 7.4 mg/dL (8.5-10.1) L 01/19/18 06:00 Total Bilirubin 8.6 mg/dL (0.2-1) H 01/19/18 06:00 AST 167 U/L (15-37) H 01/19/18 06:00 ALT 83 U/L (13-61) H 01/19/18 06:00 Alkaline Phosphatase 216 U/L (45-117) H 01/19/18 06:00 Total Protein 4.8 g/dl (6.4-8.2) L 01/19/18 06:00 Albumin 2.0 g/dl (3.4-5.0) L 01/19/18 06:00 Current Medications Generic Name Dose Route Start Last Admin Trade Name Shantq PRN Reason Stop Dose Admin Folic Acid 1 mg 01/15/18 10:00 01/19/18 11:50 Folic Acid Injection - SQ 1 mg DAILY [facility] Administration Haloperidol 5 mg 01/15/18 16:54 Haldol Injection (Fast Acting) - IM ONCE PRN AGITATION Heparin Sodium (Porcine) 5,000 unit 01/16/18 10:00 01/19/18 05:50 Heparin - SQ 5,000 unit TID [facility] Administration Lactated Ringer's 1,000 ml in 1,000 mls @ 100 mls/hr 01/15/18 10:37 01/18/18 12:24 Lactated Ringers Solution IV Not Given ASDIR [facility] Lactulose 20 gm 01/18/18 16:48 01/19/18 05:50 Cephulac (Oral Use) PO 20 gm TID [facility] Administration Methylprednisolone Sodium Succinate 32 mg 01/15/18 17:00 01/19/18 11:50 Solu-Medrol - IVPUSH 32 mg DAILY [facility] Administration Pantoprazole Sodium 40 mg 01/15/18 18:15 01/19/18 11:49 Protonix Iv IVPUSH 40 mg DAILY [facility] Administration Rifaximin 550 mg 01/19/18 22:00 Xifaxan - PO BID [facility] Thiamine HCl 500 mg 01/15/18 19:00 01/19/18 11:50 Vitamin B1 Injection - IVPB 500 mg Q8H-IV [facility] Administration ASSESSMENT AND PLAN: Patient is a 77yo man with h/o Alcoholism, HLP, HTN, gout and smoking who presented from [facility] with AMS. # Acute metabolic encephalopathy improving due to alcohol withdrawal with alcoholic liver disease, s/p IV thiamine completed. # Acute Transaminitis: due to alcoholic hepatitis. US positive for Gall stones but no cholecystitis . Cannot do MRCP due unable to answer the questions. CT of head and ABd/pelvix and cxray did not show any metal, MAddry's DF 25. As per GI to continue the patient on steroid. follow the labs. # Acute Bilirubinemia 9.1 today, will monitor the level, GI consult appreciated # Acute on chronic pancreatitis due to alcoholism with NL Lipase. no pain reported. # ETOH withdrawal: continue thiamine, prn ativan with low dose Once patient is more stable will start aspirin due to old infarct .will monitor. DVT px : heparin sq. Visit type - Emergency Visit Emergency Visit: Yes ED Registration Date: 01/14/18 Care time: The patient presented to the Emergency Department on the above date and was hospitalized for further evaluation of their emergent condition. - New Patient This patient is new to me today: No - Critical Care Critical Care patient: No - Discharge Referral Referred to [facility] Med P.C.: No
[2018-01-19] MEDS: LACTATED RINGERS SOLUTION 1,000 ML/1,000 ML INFUS.BAG IV SCH (17:35)
[2018-01-19] MEDS: RIFAXIMIN 550 MG TABLET (UD) PO SCH (23:05)
[2018-01-20] MEDS: THIAMINE HCL 200 MG/2 ML VIAL IVPB SCH (02:02)
[2018-01-20] MEDS: LACTATED RINGERS SOLUTION 1,000 ML/1,000 ML INFUS.BAG IV SCH ×2 (05:24→14:00)
[2018-01-20] MEDS: LACTULOSE 20 GM/30 ML UDC (FOR ORAL USE ONLY) PO SCH ×3 (05:24→23:05)
[2018-01-20] MEDS: HEPARIN NA (PORCINE) 5,000 UNITS/ML 1ML VIAL SQ SCH ×3 (05:24→23:06)
--- NOTE | 2018-01-20 08:29 | PN ---
Teaching Attending Note Name of Resident: Gely Yuen ATTENDING PHYSICIAN STATEMENT I saw and evaluated the patient. I reviewed the resident's note and discussed the case with the resident. I agree with the resident's findings and plan as documented. SUBJECTIVE: Comfortable with no acute distress, more awake. OBJECTIVE: Vital Signs Temperature 98.7 F 01/20/18 06:56 Pulse Rate 90 01/20/18 06:56 Respiratory Rate 18 01/20/18 06:56 Blood Pressure 164/88 01/20/18 06:56 O2 Sat by Pulse Oximetry (%) 97 01/19/18 21:00 GENERAL: lying in bed with no acute distress. less lethargic today. HEAD: Normal with no signs of trauma. EYES: PERRL, extraocular movements intact, icteric scleral, crusty eyelids improved. ENT: Ears normal, oropharynx clear without exudates, dry mucous membranes. NECK: Trachea midline, full range of motion, supple, No JVD. LUNGS: decreased BS BL ,with mild crackles. HEART: Regular rate and rhythm, S1, S2 without murmur ABDOMEN: Soft, NT, normoactive bowel sounds, no rebound, hepatomegaly, no shifting dullness. Yellow abdomen EXTREMITIES: 2+ dorsal pedal pulses, warm, well-perfused, no calf tenderness no edema. NEUROLOGICAL: Somnolent, gait not observed. PSYCH: Normal mood, normal affect. SKIN: Warm, dry, normal turgor. spider angioma on the abdomen. CBCD WBC 9.6 K/mm3 (4.0-10.0) 01/19/18 06:00 RBC 2.67 M/mm3 (4.00-5.60) L 01/19/18 06:00 Hgb 10.2 GM/dL (11.7-16.9) L 01/19/18 06:00 Hct 29.5 % (35.4-49) L 01/19/18 06:00 MCV 110.4 fl (80-96) H 01/19/18 06:00 MCHC 34.5 g/dl (32.0-35.9) 01/19/18 06:00 RDW 16.5 % (11.9-15.9) H 01/19/18 06:00 Plt Count 158 K/MM3 (134-434) 01/19/18 06:00 MPV 9.7 fl (7.5-11.1) 01/19/18 06:00 CMP Sodium 144 mmol/L (136-145) 01/19/18 06:00 Potassium 3.7 mmol/L (3.5-5.1) 01/19/18 06:00 Chloride 112 mmol/L (98-107) H 01/19/18 06:00 Carbon Dioxide 25 mmol/L (21-32) 01/19/18 06:00 Anion Gap 8 MMOL/L (8-16) 01/19/18 06:00 BUN 15 mg/dL (7-18) 01/19/18 06:00 Creatinine 0.9 mg/dL (0.55-1.3) 01/19/18 06:00 Creat Clearance w eGFR > 60 (>60) 01/19/18 06:00 Random Glucose 87 mg/dL (74-106) 01/19/18 06:00 Calcium 7.4 mg/dL (8.5-10.1) L 01/19/18 06:00 Total Bilirubin 8.6 mg/dL (0.2-1) H 01/19/18 06:00 AST 167 U/L (15-37) H 01/19/18 06:00 ALT 83 U/L (13-61) H 01/19/18 06:00 Alkaline Phosphatase 216 U/L (45-117) H 01/19/18 06:00 Total Protein 4.8 g/dl (6.4-8.2) L 01/19/18 06:00 Albumin 2.0 g/dl (3.4-5.0) L 01/19/18 06:00 Current Medications Generic Name Dose Route Start Last Admin Trade Name Freq PRN Reason Stop Dose Admin Folic Acid 1 mg 01/15/18 10:00 01/19/18 11:50 Folic Acid Injection - SQ 1 mg DAILY [facility] Administration Haloperidol 5 mg 01/15/18 16:54 Haldol Injection (Fast Acting) - IM ONCE PRN AGITATION Heparin Sodium (Porcine) 5,000 unit 01/16/18 10:00 01/20/18 05:24 Heparin - SQ 5,000 unit TID [facility] Administration Lactated Ringer's 1,000 ml in 1,000 mls @ 100 mls/hr 01/15/18 10:37 01/20/18 05:24 Lactated Ringers Solution IV 100 mls/hr ASDIR [facility] Administration Lactulose 20 gm 01/18/18 16:48 01/20/18 05:24 Cephulac (Oral Use) PO 20 gm TID [facility] Administration Methylprednisolone Sodium Succinate 32 mg 01/15/18 17:00 01/19/18 11:50 Solu-Medrol - IVPUSH 32 mg DAILY [facility] Administration Pantoprazole Sodium 40 mg 01/15/18 18:15 01/19/18 11:49 Protonix Iv IVPUSH 40 mg DAILY [facility] Administration Rifaximin 550 mg 01/19/18 22:00 01/19/18 23:05 Xifaxan - PO 550 mg BID [facility] Administration Thiamine HCl 500 mg 01/15/18 19:00 01/20/18 02:02 Vitamin B1 Injection - IVPB 500 mg Q8H-IV [facility] Administration Home Medications Medication Instructions Recorded Allopurinol [Zyloprim -] 300 mg PO DAILY 01/14/18 Amlodipine Besylate [Norvasc -] 5 mg PO DAILY 01/14/18 Aspirin 81 mg PO DAILY 01/14/18 Atorvastatin Ca [Lipitor] 40 mg PO HS 01/14/18 Labetalol HCl 100 mg PO BID 01/14/18 ASSESSMENT AND PLAN: Patient is a 77yo man with h/o Alcoholism, HLP, HTN, gout and smoking who presented from [facility] with AMS. # Acute metabolic encephalopathy improving , no further alcohol withdrawal .s/p thiamine. # Acute Transaminitis: due to alcoholic hepatitis. US positive for Gall stones but no cholecystitis . MAddry's DF 25. As per GI to continue the patient on steroid. follow the labs. # Acute Bilirubinemia 9.1 today, will continue to monitor. GI on the case. # Acute on chronic pancreatitis due to alcoholism with NL Lipase. # ETOH withdrawal resolved , s/p IV thiamine. 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 DVT px : heparin sq.
--- NOTE | 2018-01-20 08:33 | PN ---
Progress Note, Physician Chief Complaint: no GI complaints - Current Medication List Current Medications: Active Medications Folic Acid (Folic Acid Injection -) 1 mg SQ DAILY [facility] Last Admin: 01/19/18 11:50 Dose: 1 mg Haloperidol (Haldol Injection (Fast Acting) -) 5 mg IM ONCE PRN PRN Reason: AGITATION Heparin Sodium (Porcine) (Heparin -) 5,000 unit SQ TID [facility] Last Admin: 01/20/18 05:24 Dose: 5,000 unit Lactated Ringer's (Lactated Ringers Solution) 1,000 ml in 1,000 mls @ 100 mls/ hr IV ASDIR [facility] Last Admin: 01/20/18 05:24 Dose: 100 mls/hr Lactulose (Cephulac (Oral Use)) 20 gm PO TID [facility] Last Admin: 01/20/18 05:24 Dose: 20 gm Methylprednisolone Sodium Succinate (Solu-Medrol -) 32 mg IVPUSH DAILY [facility] Last Admin: 01/19/18 11:50 Dose: 32 mg Pantoprazole Sodium (Protonix Iv) 40 mg IVPUSH DAILY [facility] Last Admin: 01/19/18 11:49 Dose: 40 mg Rifaximin (Xifaxan -) 550 mg PO BID [facility] Last Admin: 01/19/18 23:05 Dose: 550 mg Thiamine HCl (Vitamin B1 Injection -) 500 mg IVPB Q8H-IV [facility] Last Admin: 01/20/18 02:02 Dose: 500 mg - Objective Vital Signs: Vital Signs Temperature 98.7 F 01/20/18 06:56 Pulse Rate 90 01/20/18 06:56 Respiratory Rate 18 01/20/18 06:56 Blood Pressure 164/88 01/20/18 06:56 O2 Sat by Pulse Oximetry (%) 97 01/19/18 21:00 Constitutional: Yes: Well Nourished, No Distress, Calm Eyes: Yes: Sclera Icterus HENT: Yes: Normocephalic Neck: Yes: WNL, Supple Cardiovascular: Yes: WNL, Regular Rate and Rhythm Respiratory: Yes: WNL, Regular, CTA Bilaterally Gastrointestinal: Yes: WNL, Normal Bowel Sounds, Soft Extremities: Yes: WNL Edema: No Labs: INR, PTT INR 1.20 (0.83-1.09) H 01/18/18 06:00 Problem List - Problems (1) Alcoholic liver disease Assessment/Plan: c/w steriod therapy c/w lactulose 30 cc TID titrate to 3 BM qd rifaximin 550 mg po BID c/w PPI avoid benzo & NSAID ; low dose tylenol may be used for pain if needed 2 gram sodium diet trend LFT and coags daily ' Code(s): K70.9 - ALCOHOLIC LIVER DISEASE, UNSPECIFIED (2) Hepatic encephalopathy Code(s): K72.90 - HEPATIC FAILURE, UNSPECIFIED WITHOUT COMA (3) Alcohol dependence with uncomplicated withdrawal Code(s): F10.230 - ALCOHOL DEPENDENCE WITH WITHDRAWAL, UNCOMPLICATED
[2018-01-20 08:40] LABS: BASO % 0.6 % (0-2.0); EOS % 0.6 % (0-4.5); HEMATOCRIT 30.2 % (35.4-49); HEMOGLOBIN 9.4 GM/dL (11.7-16.9); LYMPH % 11.5 % (8-40); MCH 34.9 pg (25.7-33.7); MCHC 31.1 g/dl (32.0-35.9); MEAN CELL VOLUME 112.4 fl (80-96); MEAN PLT VOLUME 9.7 fl (7.5-11.1); MONO % 5.2 % (3.8-10.2); NEUT % 82.1 % (42.8-82.8); PLATELET COUNT 147 K/MM3 (134-434); RBC 2.69 M/mm3 (4.00-5.60); RDW 17.2 % (11.9-15.9); WHITE BLOOD COUNT 12.1 K/mm3 (4.0-10.0)
[2018-01-20 08:51] LABS: INR 1.4 (0.83-1.09); PROTHROMBIN TIME (PATIENT) 16.6 SEC (9.7-13.0)
[2018-01-20 10:02] LABS: ALBUMIN 1.9 g/dl (3.4-5.0); ALK PHOS 197 U/L (45-117); ANION GAP 9 MMOL/L (8-16); BILIRUBIN,TOTAL 7.2 mg/dL (0.2-1); BLOOD UREA NITROGEN 13 mg/dL (7-18); CALCIUM 7.6 mg/dL (8.5-10.1); CHLORIDE 114 mmol/L (98-107); CO2 24 mmol/L (21-32); CREATININE 0.8 mg/dL (0.55-1.3); GLUCOSE,RANDOM 76 mg/dL (74-106); POTASSIUM 3.6 mmol/L (3.5-5.1); SGOT/AST 133 U/L (15-37); SGPT/ALT 81 U/L (13-61); SODIUM 147 mmol/L (136-145); TOT PROT 4.7 g/dl (6.4-8.2)
--- NOTE | 2018-01-20 10:35 | PN ---
Physical Exam: SUBJECTIVE: Patient seen and examined at bedside. Napping intermittently; states that he feels "well." Without further complaint. OBJECTIVE: Vital Signs Period Temp Pulse Resp BP Sys/Glynn Pulse Ox Last 24 Hr 98.1 F-98.7 F 79-90 18-24 127-170/63-90 97 GENERAL: The patient is resting in bed. somnolent, in no acute distress HEAD: Normal with no signs of trauma. +dried skin forehead EYES: PERRL, extraocular movements intact, sclera anicteric, conjunctiva clear. ENT: Ears normal, nares patent, oropharynx clear without exudates NECK: Trachea midline, supple. LUNGS: Breath sounds equal, clear to auscultation bilaterally, no wheezes, no crackles, no accessory muscle use. HEART: Regular rate and rhythm, S1, S2 without murmur, rub or gallop. ABDOMEN: Soft, obese, mildly distended. +angiomas lower quadrants. EXTREMITIES: 2+ pt pulses, warm, well-perfused, no edema. NEUROLOGICAL: unable to fully assess as pt somnolent PSYCH: Normal mood, normal affect. SKIN: Warm, dry, +angiomas on abdomen Laboratory Results - last 24 hr 01/20/18 01/20/18 01/20/18 08:10 08:10 08:10 WBC 12.1 H RBC 2.69 L Hgb 9.4 L Hct 30.2 L MCV 112.4 H MCH 34.9 H MCHC 31.1 L RDW 17.2 H Plt Count 147 MPV 9.7 Absolute Neuts (auto) 10.0 H Neutrophils % 82.1 Lymphocytes % 11.5 Monocytes % 5.2 Eosinophils % 0.6 D Basophils % 0.6 Nucleated RBC % 0 PT with INR INR PTT (Actin FS) 64.4 H Sodium 147 H Potassium 3.6 Chloride 114 H Carbon Dioxide 24 Anion Gap 9 BUN 13 Creatinine 0.8 Creat Clearance w eGFR > 60 Random Glucose 76 Calcium 7.6 L Total Bilirubin 7.2 H AST 133 H ALT 81 H Alkaline Phosphatase 197 H Total Protein 4.7 L Albumin 1.9 L Active Medications Generic Name Dose Route Start Last Admin Trade Name Freq PRN Reason Stop Dose Admin Folic Acid 1 mg 01/15/18 10:00 01/19/18 11:50 Folic Acid Injection - SQ 1 mg DAILY [facility] Administration Haloperidol 5 mg 01/15/18 16:54 Haldol Injection (Fast Acting) - IM ONCE PRN AGITATION Heparin Sodium (Porcine) 5,000 unit 01/16/18 10:00 01/20/18 05:24 Heparin - SQ 5,000 unit TID [facility] Administration Lactated Ringer's 1,000 ml in 1,000 mls @ 100 mls/hr 01/15/18 10:37 01/20/18 05:24 Lactated Ringers Solution IV 100 mls/hr ASDIR [facility] Administration Lactulose 20 gm 01/18/18 16:48 01/20/18 05:24 Cephulac (Oral Use) PO 20 gm TID [facility] Administration Methylprednisolone Sodium Succinate 32 mg 01/15/18 17:00 01/19/18 11:50 Solu-Medrol - IVPUSH 32 mg DAILY [facility] Administration Pantoprazole Sodium 40 mg 01/15/18 18:15 01/19/18 11:49 Protonix Iv IVPUSH 40 mg DAILY [facility] Administration Rifaximin 550 mg 01/19/18 22:00 01/19/18 23:05 Xifaxan - PO 550 mg BID [facility] Administration Thiamine HCl 500 mg 01/15/18 19:00 01/20/18 02:02 Vitamin B1 Injection - IVPB 500 mg Q8H-IV [facility] Administration ASSESSMENT/PLAN: 77 y/o M with h/o alcoholism, HLD, HTN, gout, smoking, who presented to the ED from [facility] for AMS. #Acute metabolic encephalopathy 2/2 alcohol -gradually improving tbili, LFTs. continue to monitor -improving mental status -c/w lactulose 30mg TID-titrate to 3 BMs, rifaximin 550mg BID -receiving solumedrol 32mgIVP qd. if able to tolerate PO, can take prednisolone 40mg PO qd -c/w thiamine 250mg IV for 4 more days #Acute transaminitis d/t alcoholic hepatitis -cannot do MRCP b/c unable to consent -c/w solumedrol however if able to tolerate PO, can take prednisolone #Alcohol withdrawal -resolved -c/w thiamine 250mg IV for 4 more days #Scabies -F/u with ID recs -contact precautions #F/E/N LR 100 cc/hr continue to follow lytes dysphagia puree diet #PPX hep 5000 SQ TID #Dispo cont'd monitoring on med-surg. continue to follow LFTs, t bili Visit type - Emergency Visit Emergency Visit: No - New Patient This patient is new to me today: No - Critical Care Critical Care patient: No
[2018-01-20] MEDS ORDERED: PT OWN MED DRAWER 7, Y5N ONE (11:49)
[2018-01-20] MEDS: PANTOPRAZOLE SODIUM 40 MG VIAL IVPUSH SCH (12:32)
[2018-01-20] MEDS: methylPREDNISolone NA SUCC 40 MG/1 ML VIAL IVPUSH SCH (12:32)
[2018-01-20] MEDS: RIFAXIMIN 550 MG TABLET (UD) PO SCH ×2 (12:32→23:05)
[2018-01-20 12:51] LABS: ANISOCYTOSIS 1+; MACROCYTOSIS 0; OVALOCYTE 1+; PLATELET ESTIMATE DECREASED; TEAR DROP CELLS 1+
--- NOTE | 2018-01-20 17:24 | CONS ---
INFECTIOUS DISEASE CONSULTATION DATE OF CONSULTATION: DATE DICTATED: 01/20/2018 HISTORY: The patient is a 77-year-old male who was admitted to the hospital on January 14, 2018. He had presented with reports of altered mental status. The patient has a history of alcohol abuse and was admitted to [facility]. According to the staff there he had altered mentation and was noted to have hypokalemia. He was transferred to the emergency room where he was noted to be minimally responsive. The patient presently is awake but not conversant. He was noted to have a rash on the perineum and concern was raised about possible scabies infection and infestation. He is awake and responsive; however, unable to offer any additional details. PAST MEDICAL HISTORY: Positive for hypertension, hyperlipidemia, alcohol abuse, gout. SURGICAL HISTORY: Not documented. ALLERGIES: No known allergies. MEDICATIONS: At the present time include: 1. Solu-Medrol. 2. Lactulose. 3. Xifaxan. 4. Haldol. 5. Protonix. SOCIAL HISTORY: Resides in the community. Positive history of alcohol abuse and tobacco use. LABORATORY DATA: White count 12.1, hematocrit 30.2, platelets 147. Total bilirubin 7.2. Alkaline phosphatase 197. AST 133. ALT 81. Urinalysis 1 white cell. Blood cultures negative. Blood culture from January 14 positive for coagulase-negative staph. PHYSICAL EXAMINATION:General: The patient is awake but not verbally responsive, afebrile. Vital Signs: Temperature 98.3. Blood pressure 104/58. Pulse 80, regular. Respirations 18 per minute. HEENT: The patient appears icteric. Heart: Sounds S1, S2. Lungs: Clear. Abdomen: Obese, soft, nontender. Extremities: Negative for edema. Skin: Excoriations are present on the lower abdomen. No excoriations noted on the extremities or between the digits. No burrowing noted. IMPRESSION: No clinical evidence of scabies infestation. PLAN: Would obtain dermatology opinion. No treatment advised at this time. Thank you for the kind referral. CHALO HENRY M.D. [facility]/[id number]
[2018-01-20] MEDS: FOLIC ACID 5 MG/1 ML SQ SCH (18:24)
[2018-01-21] MEDS: LACTATED RINGERS SOLUTION 1,000 ML/1,000 ML INFUS.BAG IV SCH ×3 (02:47→23:05)
[2018-01-21] MEDS: LACTULOSE 20 GM/30 ML UDC (FOR ORAL USE ONLY) PO SCH ×3 (05:18→23:20)
[2018-01-21] MEDS: HEPARIN NA (PORCINE) 5,000 UNITS/ML 1ML VIAL SQ SCH ×3 (05:18→23:19)
[2018-01-21 06:29] LABS: BASO % 0.3 % (0-2.0); EOS % 0.1 % (0-4.5); HEMATOCRIT 29.3 % (35.4-49); HEMOGLOBIN 9.3 GM/dL (11.7-16.9); LYMPH % 10.6 % (8-40); MCH 35.6 pg (25.7-33.7); MCHC 31.6 g/dl (32.0-35.9); MEAN CELL VOLUME 112.5 fl (80-96); MEAN PLT VOLUME 9.4 fl (7.5-11.1); PLATELET COUNT 148 K/MM3 (134-434); RBC 2.61 M/mm3 (4.00-5.60); RDW 16.8 % (11.9-15.9); WHITE BLOOD COUNT 11.5 K/mm3 (4.0-10.0)
[2018-01-21 06:57] LABS: ALBUMIN 1.9 g/dl (3.4-5.0); ALK PHOS 223 U/L (45-117); ANION GAP 5 MMOL/L (8-16); BILIRUBIN,TOTAL 5.9 mg/dL (0.2-1); BLOOD UREA NITROGEN 14 mg/dL (7-18); CALCIUM 7.6 mg/dL (8.5-10.1); CHLORIDE 113 mmol/L (98-107); CO2 27 mmol/L (21-32); CREATININE 0.7 mg/dL (0.55-1.3); GLUCOSE,RANDOM 92 mg/dL (74-106); POTASSIUM 3.9 mmol/L (3.5-5.1); SGOT/AST 141 U/L (15-37); SGPT/ALT 90 U/L (13-61); SODIUM 145 mmol/L (136-145); TOT PROT 4.8 g/dl (6.4-8.2)
[2018-01-21 07:51] LABS: INR 1.22 (0.83-1.09); PROTHROMBIN TIME (PATIENT) 14.4 SEC (9.7-13.0)
[2018-01-21 07:53] LABS: ACTIVATED PTT 36.1 SECONDS (25.2-36.5)
--- NOTE | 2018-01-21 08:59 | PN ---
Teaching Attending Note Name of Resident: Erasto Vicente ATTENDING PHYSICIAN STATEMENT I saw and evaluated the patient. I reviewed the resident's note and discussed the case with the resident. I agree with the resident's findings and plan as documented. SUBJECTIVE: Patient is comfortable, more awake. OBJECTIVE: Vital Signs Temperature 97.9 F 01/21/18 06:00 Pulse Rate 98 H 01/21/18 06:00 Respiratory Rate 20 01/21/18 06:00 Blood Pressure 152/68 01/21/18 06:00 O2 Sat by Pulse Oximetry (%) 97 01/20/18 21:00 GENERAL: lying in bed with no acute distress. less lethargic today. HEAD: Normal with no signs of trauma. EYES: PERRL, extraocular movements intact, icteric scleral, crusty eyelids improved. ENT: Ears normal, oropharynx clear without exudates, dry mucous membranes. NECK: Trachea midline, full range of motion, supple, No JVD. LUNGS: decreased BS BL ,with mild crackles. HEART: Regular rate and rhythm, S1, S2 without murmur ABDOMEN: Soft, NT, normoactive bowel sounds, no rebound, hepatomegaly, no shifting dullness. Yellow abdomen EXTREMITIES: 2+ dorsal pedal pulses, warm, well-perfused, no calf tenderness no edema. NEUROLOGICAL: Somnolent, gait not observed. PSYCH: Normal mood, normal affect. SKIN: Warm, dry, normal turgor. spider angioma on the abdomen. CBCD WBC 11.5 K/mm3 (4.0-10.0) H 01/21/18 05:45 RBC 2.61 M/mm3 (4.00-5.60) L 01/21/18 05:45 Hgb 9.3 GM/dL (11.7-16.9) L 01/21/18 05:45 Hct 29.3 % (35.4-49) L 01/21/18 05:45 MCV 112.5 fl (80-96) H 01/21/18 05:45 MCHC 31.6 g/dl (32.0-35.9) L 01/21/18 05:45 RDW 16.8 % (11.9-15.9) H 01/21/18 05:45 Plt Count 148 K/MM3 (134-434) 01/21/18 05:45 MPV 9.4 fl (7.5-11.1) 01/21/18 05:45 CMP Sodium 145 mmol/L (136-145) 01/21/18 05:45 Potassium 3.9 mmol/L (3.5-5.1) 01/21/18 05:45 Chloride 113 mmol/L (98-107) H 01/21/18 05:45 Carbon Dioxide 27 mmol/L (21-32) 01/21/18 05:45 Anion Gap 5 MMOL/L (8-16) L 01/21/18 05:45 BUN 14 mg/dL (7-18) 01/21/18 05:45 Creatinine 0.7 mg/dL (0.55-1.3) 01/21/18 05:45 Creat Clearance w eGFR > 60 (>60) 01/21/18 05:45 Random Glucose 92 mg/dL (74-106) 01/21/18 05:45 Calcium 7.6 mg/dL (8.5-10.1) L 01/21/18 05:45 Total Bilirubin 5.9 mg/dL (0.2-1) H 01/21/18 05:45 AST 141 U/L (15-37) H 01/21/18 05:45 ALT 90 U/L (13-61) H 01/21/18 05:45 Alkaline Phosphatase 223 U/L (45-117) H 01/21/18 05:45 Total Protein 4.8 g/dl (6.4-8.2) L 01/21/18 05:45 Albumin 1.9 g/dl (3.4-5.0) L 01/21/18 05:45 Current Medications Generic Name Dose Route Start Last Admin Trade Name Freq PRN Reason Stop Dose Admin Folic Acid 1 mg 01/15/18 10:00 12 18:24 Folic Acid Injection - SQ 1 mg DAILY [facility] Administration Haloperidol 5 mg 01/15/18 16:54 Haldol Injection (Fast Acting) - IM ONCE PRN AGITATION Heparin Sodium (Porcine) 5,000 unit 01/16/18 10:00 01/21/18 05:18 Heparin - SQ 5,000 unit TID [facility] Administration Lactated Ringer's 1,000 ml in 1,000 mls @ 100 mls/hr 01/15/18 10:37 01/21/18 02:47 Lactated Ringers Solution IV 100 mls/hr ASDIR [facility] Administration Lactulose 20 gm 01/18/18 16:48 01/21/18 05:18 Cephulac (Oral Use) PO 20 gm TID [facility] Administration Methylprednisolone Sodium Succinate 32 mg 01/15/18 17:00 01/20/18 12:32 Solu-Medrol - IVPUSH 32 mg DAILY [facility] Administration Pantoprazole Sodium 40 mg 01/15/18 18:15 01/20/18 12:32 Protonix Iv IVPUSH 40 mg DAILY [facility] Administration Rifaximin 550 mg 01/19/18 22:00 01/20/18 23:05 Xifaxan - PO 550 mg BID [facility] Administration Thiamine HCl 250 mg 01/21/18 10:00 Vitamin B1 Injection - IVPB 01/24/18 10:01 DAILY [facility] Home Medications Medication Instructions Recorded Allopurinol [Zyloprim -] 300 mg PO DAILY 01/14/18 Amlodipine Besylate [Norvasc -] 5 mg PO DAILY 01/14/18 Aspirin 81 mg PO DAILY 01/14/18 Atorvastatin Ca [Lipitor] 40 mg PO HS 01/14/18 Labetalol HCl 100 mg PO BID 01/14/18 Laboratory Tests 01/14/18 01/14/18 01/14/18 18:10 18:10 18:10 Total Bilirubin 9.3 H Direct Bilirubin 7.1 H AST 198 H ALT 89 H Alkaline Phosphatase 296 H Ammonia 37.35 H 01/15/18 01/16/18 01/16/18 05:20 06:00 06:00 Total Bilirubin 8.1 H 9.6 H Direct Bilirubin 7.3 H AST 147 H 133 H ALT 70 H 58 Alkaline Phosphatase 241 H 202 H Ammonia < 10.00 L 01/17/18 01/18/18 01/19/18 06:00 06:00 06:00 Total Bilirubin 9.1 H 8.5 H 8.6 H Direct Bilirubin 7.3 H 7.5 H AST 101 H 108 H 167 H ALT 50 56 83 H Alkaline Phosphatase 180 H 181 H 216 H Ammonia 01/20/18 01/21/18 08:10 05:45 Total Bilirubin 7.2 H 5.9 H Direct Bilirubin AST 133 H 141 H ALT 81 H 90 H Alkaline Phosphatase 197 H 223 H Ammonia ASSESSMENT AND PLAN: Patient is a 77yo man with Hx of Alcoholism, HLP, HTN, gout and smoking who presented from [facility] with AMS. # Acute metabolic encephalopathy due elevated ammonia level improved , no further alcohol withdrawal continue thiamine. # Acute Transaminitis: due to alcoholic hepatitis. LFT results as above. US positive for Gall stones but no cholecystitis . MAddry's DF 25. continue steroid as per GI . will continue to monitor. # Acute Bilirubinemia 9.1--> 5.9 today, will continue to monitor. GI on the case. # Acute on chronic pancreatitis due to alcoholism with NL Lipase. # ETOH withdrawal resolved , on IV thiamine continue # Old infarct # Once patient is more stable will start the patient on aspirin. # questionable scabies: as per ID no scabies noted , will discontinue the isolation DVT px : heparin sq.
[2018-01-21] MEDS ORDERED: PT OWN MED DRAWER 7, Y5N ONE (09:23)
[2018-01-21] MEDS ORDERED: THIAMINE HCL 200 MG/2 ML VIAL IVPB SCH (10:00)
[2018-01-21 10:56] LABS: ANISOCYTOSIS 1+; MACROCYTOSIS 0; PLATELET ESTIMATE DECREASED
[2018-01-21] MEDS: PANTOPRAZOLE SODIUM 40 MG VIAL IVPUSH SCH (10:58)
[2018-01-21] MEDS: methylPREDNISolone NA SUCC 40 MG/1 ML VIAL IVPUSH SCH (10:59)
[2018-01-21] MEDS: RIFAXIMIN 550 MG TABLET (UD) PO SCH ×2 (10:59→23:19)
[2018-01-21] MEDS: FOLIC ACID 5 MG/1 ML SQ SCH (11:26)
--- NOTE | 2018-01-21 12:58 | PN ---
Progress Note, [employer] - Note Progress Note: Pt on Dys puree/nectar thick liquid. Pt requires a lot of encouragement to eat lately, with limited PO acceptance today. Selected Entries 01/19/18 01/20/18 01/20/18 14:09 06:56 10:00 Breakfast Lunch 25% Supper Temperature 98.7 F 98.7 F 01/20/18 01/20/18 01/20/18 11:01 14:35 19:00 Breakfast 0 Lunch 25% Supper 100% Temperature 98.3 F 98.5 F 01/20/18 01/21/18 01/21/18 22:00 01:51 06:00 Breakfast Lunch Supper Temperature 98.7 F 97.5 F L 97.9 F 01/21/18 01/21/18 10:00 11:30 Breakfast 25% Lunch Supper Temperature 97.4 F L Laboratory Tests 01/19/18 01/20/18 01/21/18 06:00 08:10 05:45 WBC 9.6 12.1 H 11.5 H Suggest trial of Dys chopped, including tuna, chopped egg/chicken salad. Monitor tolerance Continue [place] thick liquids Ensure compact, magic cup b/n meals.
--- NOTE | 2018-01-21 13:52 | PN ---
Physical Exam: SUBJECTIVE: Patient seen and examined. No acute events overnight. Pt. had a BM overnight. Pt. complaining of wanting to eat food and agitated about restraints. OBJECTIVE: Vital Signs Period Temp Pulse Resp BP Sys/Glynn Pulse Ox Last 24 Hr 97.4 F-98.7 F 72-98 18-20 104-162/58-78 97-100 GENERAL: The patient is more awake, and lert and oriented to name only. HEAD: Normal with no signs of trauma. EYES: PERRL, Sclera icterus, conjunctiva clear. No ptosis. ENT: Ears normal, nares patent, oropharynx clear without exudates, moist mucous membranes, foul breath, No JVD NECK: Trachea midline, full range of motion, supple. LUNGS: no accessory muscle use, coarse breath sounds HEART: regular rate and rhythm, S1, S2 without murmur ABDOMEN: Soft, jaundiced, diffuse TTP most prominent in LUQ, epigastrium, periumbilical and LLQ, tympanic to percussion, nondistended, normoactive bowel sounds, no guarding, no rebound, hepatomegaly and splenomegaly, no masses. EXTREMITIES: 2+ dorsal pedal and left radial pulses, warm, well-perfused, no calf tenderness, no edema. NEUROLOGICAL: Speaking more coherently today but still confused, gait not observed. PSYCH: Normal mood, normal affect. SKIN: Warm, dry, normal turgor, angiomas noted under panniculus and in groin Laboratory Results - last 24 hr 01/21/18 01/21/18 01/21/18 05:45 05:45 05:45 WBC 11.5 H RBC 2.61 L Hgb 9.3 L Hct 29.3 L MCV 112.5 H MCH 35.6 H MCHC 31.6 L RDW 16.8 H Plt Count 148 MPV 9.4 Absolute Neuts (auto) 9.6 H Neutrophils % 84.0 H Neutrophils % (Manual) 76.8 D Band Neutrophils % 11.1 Lymphocytes % 10.6 Lymphocytes % (Manual) 4.0 L D Monocytes % 5.0 Monocytes % (Manual) 1 L Eosinophils % 0.1 D Eosinophils % (Manual) 0.0 D Basophils % 0.3 Basophils % (Manual) 0.0 Myelocytes % (Man) 1 Promyelocytes % (Man) 0 D Blast Cells % (Manual) 0 D Nucleated RBC % 0 Metamyelocytes 0 D Hypochromia 0 Platelet Estimate Decreased Polychromasia 0 Poikilocytosis 0 Anisocytosis 1+ Microcytosis 1+ Macrocytosis 0 PT with INR 14.40 H INR 1.22 H PTT (Actin FS) 36.1 Sodium 145 Potassium 3.9 Chloride 113 H Carbon Dioxide 27 Anion Gap 5 L BUN 14 Creatinine 0.7 Creat Clearance w eGFR > 60 Random Glucose 92 Calcium 7.6 L Total Bilirubin 5.9 H AST 141 H ALT 90 H Alkaline Phosphatase 223 H Total Protein 4.8 L Albumin 1.9 L Active Medications Current Medications Folic Acid (Folic Acid Injection -) 1 mg SQ DAILY [facility] Last Admin: 01/21/18 11:26 Dose: 1 mg Haloperidol (Haldol Injection (Fast Acting) -) 5 mg IM ONCE PRN PRN Reason: AGITATION Heparin Sodium (Porcine) (Heparin -) 5,000 unit SQ TID [facility] Last Admin: 01/21/18 13:37 Dose: 5,000 unit Lactated Ringer's (Lactated Ringers Solution) 1,000 ml in 1,000 mls @ 100 mls/ hr IV ASDIR [facility] Last Admin: 01/21/18 13:37 Dose: 100 mls/hr Lactulose (Cephulac (Oral Use)) 20 gm PO TID [facility] Last Admin: 01/21/18 13:37 Dose: 20 gm Methylprednisolone Sodium Succinate (Solu-Medrol -) 32 mg IVPUSH DAILY [facility] Last Admin: 01/21/18 10:59 Dose: 32 mg Pantoprazole Sodium (Protonix Iv) 40 mg IVPUSH DAILY [facility] Last Admin: 01/21/18 10:58 Dose: 40 mg Rifaximin (Xifaxan -) 550 mg PO BID [facility] Last Admin: 01/21/18 10:59 Dose: 550 mg Thiamine HCl (Vitamin B1 Injection -) 250 mg IVPB DAILY [facility] Stop: 01/24/18 10:01 Last Admin: 01/21/18 11:00 Dose: 250 mg ASSESSMENT/PLAN: 77 y/o M w/ PMHx. EtOH abuse presented from [facility] w/ AMS 2/2 hepatic encephalopathy w/ associated cholelithiasis and chronic pancreatitis. #Hepatic encephalopathy 2/2 cirrhosis and benzodiazepine usage -CIWA score: 4 based on agitation, confusion and tremor -Maddrey: 21.5 as calculated by me (using a reference PT of 11, would be 16.9 if 12 is used). -LFTs trending down however TBili decreased from 7.2-->5.9 -D/C Ativan. AVOID Benzodiazepene usage per Dr. Hassan (GI Consult), as Pt. has decreased clearance of benzos. -Added Rifaximin 550mg BID -Started IV Solumedrol 32mg Daily consider Prednisolone 40mg daily and then slow steroid taper on discharge, however Pt. is homeless and will likely be lost to follow up as his senior care is in [place]. -started Protonix 40mg IVP Daily -Haldol PRN for agitation -Lactulose 20gm TID -NGT placed 01/15/18; removed 01/18/18 -daily thiamine and folate -monitor and replete electrolytes -S/S consultation appreciated -fall risk precautions -aspiration precautions -elevate HOB -Abdominal US: cholelithiasis w/o cholecystitis, hepatomegaly w/ diffuse fatty infiltration -Abdominal CT noted -UTox: Positive for Benzos -AFP wnl (3.6) #Hyperbilirubinemia induced pruritis -Pt. noted to have angiomas in inguinal region of skin. -ID consult (Dr. Paris) appreciated- no indication to treat at this time as Pt. does not have scabies, likely hyperbilirubinemia induced pruritis. #R/O CHF- ruled out -BNP: 3,389 likely d/t hepatic dysfunction -monitor volume status -echo: mild MR, normal EF, normal size, thickness and function of LV #FEN -LR @ 100ml/hr- will consider decreasing or discontinuing fluids in AM -monitor and replete electrolytes -Dysphagia puree nectar thick liquids diet w/ 2gm Na+ restriction #PPx -DVT: Lovenox SQ -GI: Protonix 40mg IVP #Code -Full #Dispo -Med/surg--> SNF on discharge Visit type - Emergency Visit Emergency Visit: Yes ED Registration Date: 01/14/18 Care time: The patient presented to the Emergency Department on the above date and was hospitalized for further evaluation of their emergent condition. - New Patient This patient is new to me today: No - Critical Care Critical Care patient: No - Discharge Referral Referred to [facility] Med [facility].C.: No
[2018-01-21 21:10] LABS: SERUM IRON SATURATION 40 % (15-55); TOTAL IRON BINDING CAPACITY 169 ug/dL (250-450); UIBC 101 ug/dL (111-343)
[2018-01-22] MEDS: HEPARIN NA (PORCINE) 5,000 UNITS/ML 1ML VIAL SQ SCH ×2 (06:35→14:53)
[2018-01-22] MEDS: LACTULOSE 20 GM/30 ML UDC (FOR ORAL USE ONLY) PO SCH ×3 (06:35→22:12)
[2018-01-22 07:02] LABS: BASO % 0.4 % (0-2.0); EOS % 0.3 % (0-4.5); HEMATOCRIT 25.8 % (35.4-49); HEMOGLOBIN 8.8 GM/dL (11.7-16.9); LYMPH % 7.8 % (8-40); MCH 37.8 pg (25.7-33.7); MCHC 34.2 g/dl (32.0-35.9); MEAN CELL VOLUME 110.5 fl (80-96); MEAN PLT VOLUME 9.3 fl (7.5-11.1); MONO % 5.2 % (3.8-10.2); NEUT % 86.3 % (42.8-82.8); PLATELET COUNT 152 K/MM3 (134-434); RBC 2.34 M/mm3 (4.00-5.60); RDW 16.9 % (11.9-15.9); WHITE BLOOD COUNT 11.6 K/mm3 (4.0-10.0)
[2018-01-22 07:34] LABS: ALBUMIN 1.8 g/dl (3.4-5.0); ALK PHOS 208 U/L (45-117); ANION GAP 6 MMOL/L (8-16); BILIRUBIN,TOTAL 5.1 mg/dL (0.2-1); BLOOD UREA NITROGEN 12 mg/dL (7-18); CALCIUM 7.6 mg/dL (8.5-10.1); CHLORIDE 112 mmol/L (98-107); CO2 28 mmol/L (21-32); CREATININE 0.6 mg/dL (0.55-1.3); GLUCOSE,RANDOM 75 mg/dL (74-106); MAGNESIUM 1.4 mg/dL (1.8-2.4); PHOSPHOROUS 2.6 mg/dL (2.5-4.9); POTASSIUM 3.9 mmol/L (3.5-5.1); SGOT/AST 117 U/L (15-37); SGPT/ALT 84 U/L (13-61); SODIUM 146 mmol/L (136-145); TOT PROT 4.5 g/dl (6.4-8.2)
[2018-01-22] MEDS ORDERED: LACTATED RINGERS SOLUTION 1,000 ML/1,000 ML INFUS.BAG IV SCH (08:12)
--- NOTE | 2018-01-22 08:31 | PN ---
Teaching Attending Note Name of Resident: Erasto Vicente ATTENDING PHYSICIAN STATEMENT I saw and evaluated the patient. I reviewed the resident's note and discussed the case with the resident. I agree with the resident's findings and plan as documented. SUBJECTIVE: Patient is better but opens his eyes and able to communicate , but still confused. OBJECTIVE: Vital Signs Temperature 98.2 F 01/22/18 05:46 Pulse Rate 80 01/22/18 05:46 Respiratory Rate 20 01/22/18 05:46 Blood Pressure 144/84 01/22/18 05:46 O2 Sat by Pulse Oximetry (%) 100 01/21/18 21:00 GENERAL: lying in bed with no acute distress. less lethargic today. HEAD: Normal with no signs of trauma. EYES: PERRL, extraocular movements intact, icteric scleral, crusty eyelids improved. ENT: Ears normal, oropharynx clear without exudates, dry mucous membranes. NECK: Trachea midline, full range of motion, supple, No JVD. LUNGS: decreased BS BL ,with mild crackles. HEART: Regular rate and rhythm, S1, S2 without murmur ABDOMEN: Soft, distended abdomen, normoactive bowel sounds, no rebound, hepatomegaly. Yellow abdomen EXTREMITIES: 2+ dorsal pedal pulses, warm, well-perfused, no calf tenderness no edema. NEUROLOGICAL: Somnolent, gait not observed. PSYCH: Normal mood, normal affect. SKIN: Warm, dry, normal turgor. spider angioma on the abdomen. CBCD WBC 11.6 K/mm3 (4.0-10.0) H 01/22/18 06:00 RBC 2.34 M/mm3 (4.00-5.60) L 01/22/18 06:00 Hgb 8.8 GM/dL (11.7-16.9) L 01/22/18 06:00 Hct 25.8 % (35.4-49) L 01/22/18 06:00 MCV 110.5 fl (80-96) H 01/22/18 06:00 MCHC 34.2 g/dl (32.0-35.9) 01/22/18 06:00 RDW 16.9 % (11.9-15.9) H 01/22/18 06:00 Plt Count 152 K/MM3 (134-434) 01/22/18 06:00 MPV 9.3 fl (7.5-11.1) 01/22/18 06:00 CMP Sodium 146 mmol/L (136-145) H 01/22/18 06:00 Potassium 3.9 mmol/L (3.5-5.1) 01/22/18 06:00 Chloride 112 mmol/L (98-107) H 01/22/18 06:00 Carbon Dioxide 28 mmol/L (21-32) 01/22/18 06:00 Anion Gap 6 MMOL/L (8-16) L 01/22/18 06:00 BUN 12 mg/dL (7-18) 01/22/18 06:00 Creatinine 0.6 mg/dL (0.55-1.3) 01/22/18 06:00 Creat Clearance w eGFR > 60 (>60) 01/22/18 06:00 Random Glucose 75 mg/dL (74-106) 01/22/18 06:00 Calcium 7.6 mg/dL (8.5-10.1) L 01/22/18 06:00 Total Bilirubin 5.1 mg/dL (0.2-1) H 01/22/18 06:00 AST 117 U/L (15-37) H 01/22/18 06:00 ALT 84 U/L (13-61) H 01/22/18 06:00 Alkaline Phosphatase 208 U/L (45-117) H 01/22/18 06:00 Total Protein 4.5 g/dl (6.4-8.2) L 01/22/18 06:00 Albumin 1.8 g/dl (3.4-5.0) L 01/22/18 06:00 ASSESSMENT AND PLAN: Patient is a 77yo man with Hx of Alcoholism, HLP, HTN, gout and smoking who presented from [facility] with AMS. # Acute metabolic encephalopathy due elevated ammonia level improved , no further alcohol withdrawal continue thiamine IM now, since IV access is removed today. getting peripheral access and every meds being converted to po or IM for now. # Distended abdomen: US positive for moderate size ascites from today , will get IR for paracentesis. # Acute Transaminitis: due to alcoholic hepatitis. LFT results as above. US positive for Gall stones but no cholecystitis . MAddry's DF 25. continue steroid as per GI . monitor # Acute Bilirubinemia 9.1--> 5.9-->5.1 today, will continue to monitor. GI on the case. # Acute on chronic pancreatitis due to alcoholism with NL Lipase. # ETOH withdrawal resolved , on IM thiamine now, due discontinued his central line. # Old infarct # Once patient is more stable will start the patient on aspirin. # questionable scabies: as per ID no scabies noted , will discontinue the isolation DVT px : heparin sq. hold heparin sq for paracentesis
[2018-01-22] MEDS ORDERED: PT OWN MED DRAWER 7, Y5N ONE ×2 (08:47→21:55)
[2018-01-22 09:09] LABS: INR 1.37 (0.83-1.09); PROTHROMBIN TIME (PATIENT) 16.2 SEC (9.7-13.0)
[2018-01-22] MEDS: RIFAXIMIN 550 MG TABLET (UD) PO SCH ×2 (10:34→22:12)
[2018-01-22 10:55] LABS: ANISOCYTOSIS 1+; MACROCYTOSIS 1+
--- NOTE | 2018-01-22 11:18 | PN ---
Physical Exam: SUBJECTIVE: Patient seen and examined. Pt. had a BM yesterday in the afternoon and overnight. No acute events overnight. OBJECTIVE: Vital Signs Period Temp Pulse Resp BP Sys/Glynn Pulse Ox Last 24 Hr 97.2 F-98.5 F 75-80 18-20 112-145/76-84 100 GENERAL: The patient is more awake, and alert and oriented to name only. HEAD: Normal with no signs of trauma. EYES: PERRL, Sclera icterus, conjunctiva clear. No ptosis. ENT: Ears normal, nares patent, oropharynx clear without exudates, moist mucous membranes, foul breath, No JVD NECK: Trachea midline, full range of motion, supple. LUNGS: no accessory muscle use, coarse breath sounds HEART: regular rate and rhythm, S1, S2 without murmur ABDOMEN: Soft, jaundiced, diffuse TTP most prominent in LUQ, epigastrium, periumbilical and LLQ, dull to percussion, abdomen is distended, normoactive bowel sounds, guarding, no rebound, increased hepatomegaly and splenomegaly compared to yesterday, no masses. EXTREMITIES: 2+ dorsal pedal and left radial pulses, warm, well-perfused, no calf tenderness, trace lower extremity edema. NEUROLOGICAL: Speaking more coherently today but still confused, gait not observed. PSYCH: Normal mood, normal affect. SKIN: Warm, dry, normal turgor, angiomas noted under panniculus and in groin Laboratory Results - last 24 hr 01/16/18 01/21/18 01/22/18 06:00 05:45 06:00 WBC 11.6 H RBC 2.34 L Hgb 8.8 L Hct 25.8 L MCV 110.5 H MCH 37.8 H MCHC 34.2 RDW 16.9 H Plt Count 152 MPV 9.3 Absolute Neuts (auto) 10.0 H Neutrophils % 86.3 H Neutrophils % (Manual) 76.8 D Band Neutrophils % 11.1 Lymphocytes % 7.8 L D Lymphocytes % (Manual) 4.0 L D Monocytes % 5.2 Monocytes % (Manual) 1 L Eosinophils % 0.3 D Eosinophils % (Manual) 0.0 D Basophils % 0.4 Basophils % (Manual) 0.0 Myelocytes % (Man) 1 Promyelocytes % (Man) 0 D Blast Cells % (Manual) 0 D Nucleated RBC % 0 Metamyelocytes 0 D Hypochromia 0 Platelet Estimate Decreased Polychromasia 0 Poikilocytosis 0 Anisocytosis 1+ Microcytosis 1+ Macrocytosis 0 PT with INR INR Sodium Potassium Chloride Carbon Dioxide Anion Gap BUN Creatinine Creat Clearance w eGFR Random Glucose Calcium Phosphorus Magnesium Iron 68 TIBC 169 L Iron Saturation 40 Total Bilirubin AST ALT Alkaline Phosphatase Total Protein Albumin 01/22/18 01/22/18 06:00 08:40 WBC RBC Hgb Hct MCV MCH MCHC RDW Plt Count MPV Absolute Neuts (auto) Neutrophils % Neutrophils % (Manual) Band Neutrophils % Lymphocytes % Lymphocytes % (Manual) Monocytes % Monocytes % (Manual) Eosinophils % Eosinophils % (Manual) Basophils % Basophils % (Manual) Myelocytes % (Man) Promyelocytes % (Man) Blast Cells % (Manual) Nucleated RBC % Metamyelocytes Hypochromia Platelet Estimate Polychromasia Poikilocytosis Anisocytosis Microcytosis Macrocytosis PT with INR 16.20 H INR 1.37 H Sodium 146 H Potassium 3.9 Chloride 112 H Carbon Dioxide 28 Anion Gap 6 L BUN 12 Creatinine 0.6 Creat Clearance w eGFR > 60 Random Glucose 75 Calcium 7.6 L Phosphorus 2.6 Magnesium 1.4 L Iron TIBC Iron Saturation Total Bilirubin 5.1 H AST 117 H ALT 84 H Alkaline Phosphatase 208 H Total Protein 4.5 L Albumin 1.8 L Active Medications Home Medications Medication Instructions Recorded NK [No Known Home Medication] 01/22/18 Current Medications Folic Acid (Folic Acid Injection -) 1 mg SQ DAILY [facility] Last Admin: 01/21/18 11:26 Dose: 1 mg Haloperidol (Haldol Injection (Fast Acting) -) 5 mg IM ONCE PRN PRN Reason: AGITATION Heparin Sodium (Porcine) (Heparin -) 5,000 unit SQ TID [facility] Last Admin: 01/22/18 06:35 Dose: 5,000 unit Lactulose (Cephulac (Oral Use)) 20 gm PO TID [facility] Last Admin: 01/22/18 06:35 Dose: 20 gm Methylprednisolone Sodium Succinate (Solu-Medrol -) 32 mg IVPUSH DAILY [facility] Last Admin: 01/21/18 10:59 Dose: 32 mg Pantoprazole Sodium (Protonix Iv) 40 mg IVPUSH DAILY [facility] Last Admin: 01/21/18 10:58 Dose: 40 mg Rifaximin (Xifaxan -) 550 mg PO BID [facility] Last Admin: 01/22/18 10:34 Dose: 550 mg Thiamine HCl (Vitamin B1 Injection -) 250 mg IVPB DAILY [facility] Stop: 01/24/18 10:01 Last Admin: 01/21/18 11:00 Dose: 250 mg ASSESSMENT/PLAN: 77 y/o M w/ PMHx. EtOH abuse presented from [facility] w/ AMS 2/2 hepatic encephalopathy w/ associated cholelithiasis and chronic pancreatitis. #Hepatic encephalopathy 2/2 cirrhosis and benzodiazepine usage -CIWA score: 4 based on agitation, confusion and tremor -Maddrey: 24.4 as calculated by me (using a reference PT of 11, would be 18.5 if 12 is used). -LFTs trending down however TBili decreased from 5.9-->5.1 -D/C Ativan. AVOID Benzodiazepene usage per Dr. Hassan (GI Consult), as Pt. has decreased clearance of benzos. -Added Rifaximin 550mg BID -D/c IV Solumedrol start Prednisone 40mg daily and then slow steroid taper on discharge, however Pt. is homeless and will likely be lost to follow up as his prison is in [place]. -switched Protonix 40mg PO Daily -Haldol PRN for agitation -Lactulose 20gm TID -NGT placed 01/15/18; removed 01/18/18 -daily thiamine IM and folate SQ -monitor and replete electrolytes -S/S consultation appreciated -fall risk precautions -aspiration precautions -elevate HOB -Abdominal US: cholelithiasis w/o cholecystitis, hepatomegaly w/ diffuse fatty infiltration; Rpt. US shows moderate ascites, f/u paracentesis tomorrow -Abdominal CT noted -UTox: Positive for Benzos -AFP wnl (3.6) #Hyperbilirubinemia induced pruritis-resolving? -Pt. noted to have angiomas in inguinal region of skin. -ID consult (Dr. Paris) appreciated- no indication to treat at this time as Pt. does not have scabies, likely hyperbilirubinemia induced pruritis. #R/O CHF- ruled out -BNP: 3,389 likely d/t hepatic dysfunction -monitor volume status -echo: mild MR, normal EF, normal size, thickness and function of LV #FEN -D/c IVF encourage PO intake -monitor and replete electrolytes -Dysphagia puree nectar thick liquids diet w/ 2gm Na+ restriction #PPx -DVT: Lovenox SQ -GI: Protonix 40mg PO #Code -Full #Dispo -Med/surg--> SNF on discharge Visit type - Emergency Visit Emergency Visit: Yes ED Registration Date: 01/14/18 Care time: The patient presented to the Emergency Department on the above date and was hospitalized for further evaluation of their emergent condition. - New Patient This patient is new to me today: No - Critical Care Critical Care patient: No - Discharge Referral Referred to [facility] No
[2018-01-22] MEDS ORDERED: THIAMINE HCL 200 MG/2 ML VIAL IM SCH (14:21)
[2018-01-22 14:52] LABS: PLATELET ESTIMATE ADEQUATE
[2018-01-22] MEDS: THIAMINE HCL 200 MG/2 ML VIAL IM SCH (14:54)
[2018-01-22] MEDS: FOLIC ACID 5 MG/1 ML SQ SCH (17:25)
--- NOTE | 2018-01-22 19:09 | PN ---
GI Progress Note Subjective: Awake, denies focal complaints - Objective Vital Signs: Vital Signs Temperature 98.7 F 01/22/18 17:54 Pulse Rate 84 01/22/18 17:54 Respiratory Rate 20 01/22/18 17:54 Blood Pressure 130/74 01/22/18 17:54 O2 Sat by Pulse Oximetry (%) 99 01/22/18 09:00 Constitutional: Calm Eyes: Yes: Sclera Icterus Cardiovascular: Yes: Regular Rate and Rhythm. No: Murmur Respiratory: Yes: Diminished (at bases bilaterally) Gastrointestinal Inspection: Yes: Distention ...Auscultate: Yes: Normoactive Bowel Sounds ...Palpate: No: Tenderness ...Percussion: Yes: Dullness. No: Tympanitic Edema: LLE: Trace, RLE: Trace Neurological: Yes: Alert Labs: CBC, BMP 01/22/18 06:00 01/22/18 06:00 INR, PTT INR 1.37 (0.83-1.09) H 01/22/18 08:40 Hepatic Panel Total Bilirubin 5.1 mg/dL (0.2-1) H 01/22/18 06:00 Direct Bilirubin 7.5 mg/dL (0.0-0.2) H 01/19/18 06:00 AST 117 U/L (15-37) H 01/22/18 06:00 ALT 84 U/L (13-61) H 01/22/18 06:00 Alkaline Phosphatase 208 U/L (45-117) H 01/22/18 06:00 Albumin 1.8 g/dl (3.4-5.0) L 01/22/18 06:00 Problem List - Problems (1) Alcoholic cirrhosis of liver without ascites Assessment/Plan: Alc hep with underlying liver cirrhosis: Needs complete alcohol cessation: discussed with patient Daily weights, I's and O's, 2g low Na diet Diuresis: Add Lasix 40mg daily / aldactone 100mg daily Continue prednisone for now and begin to taper off. Hepatitis Discriminant Function at it's highest was 30. Calcium / Vitamin D supplementation Rifaximin 550mg PO BID / Lactulose: titrate to 4-5 loose BM's per day. Decrease if excessive diarrhea. Check repeat ammonia level Paracentesis with fluid sent for cell count with diff, culture, AFB culture and smear, total protein, albumin, LDH, glucose and cytology. Will need heparin held for paracentesis so coordinate with IR. Overall poor prognosis Code(s): K70.30 - ALCOHOLIC CIRRHOSIS OF LIVER WITHOUT ASCITES
[2018-01-23] MEDS: LACTULOSE 20 GM/30 ML UDC (FOR ORAL USE ONLY) PO SCH ×3 (05:49→21:42)
--- NOTE | 2018-01-23 07:05 | PN ---
Progress Note, Physician Chief Complaint: awake and alert - eating lunch no complaints - Current Medication List Current Medications: Active Medications Folic Acid (Folic Acid Injection -) 1 mg SQ DAILY [facility] Last Admin: 01/22/18 17:25 Dose: 1 mg Haloperidol (Haldol Injection (Fast Acting) -) 5 mg IM ONCE PRN PRN Reason: AGITATION Heparin Sodium (Porcine) (Heparin -) 5,000 unit SQ TID [facility] Last Admin: 01/22/18 14:53 Dose: 5,000 unit Lactulose (Cephulac (Oral Use)) 20 gm PO TID [facility] Last Admin: 01/23/18 05:49 Dose: 20 gm Pantoprazole Sodium (Protonix -) 40 mg PO DAILY [facility] Prednisone (Deltasone -) 40 mg PO DAILY [facility] Rifaximin (Xifaxan -) 550 mg PO BID [facility] Last Admin: 01/22/18 22:12 Dose: 550 mg Thiamine HCl (Vitamin B1 Injection -) 100 mg IM DAILY [facility] Stop: 01/24/18 10:01 Last Admin: 01/22/18 14:54 Dose: 100 mg - Objective Vital Signs: Vital Signs Temperature 97.8 F 01/22/18 22:00 Pulse Rate 84 01/22/18 22:00 Respiratory Rate 18 01/22/18 22:00 Blood Pressure 151/79 01/22/18 22:00 O2 Sat by Pulse Oximetry (%) 100 01/22/18 21:00 Constitutional: Yes: Well Nourished, No Distress, Calm Eyes: Yes: Sclera Icterus HENT: Yes: WNL Neck: Yes: WNL Cardiovascular: Yes: WNL, Regular Rate and Rhythm Respiratory: Yes: WNL, Regular, CTA Bilaterally Gastrointestinal: Yes: Normal Bowel Sounds, Other (tympanic, nontender) Extremities: Yes: WNL Edema: No Labs: CBC, BMP 01/22/18 06:00 01/22/18 06:00 INR, PTT INR 1.37 (0.83-1.09) H 01/22/18 08:40 Problem List - Problems (1) Alcoholic liver disease Assessment/Plan: - Ultrasound with ascites -- therapeutic and diagnostic paracentesis - c/w steriod therapy to complete the course for etoh associated hepatitis -c/w lactulose 30 cc TID titrate to 3 BM qd -rifaximin 550 mg po BID - c/w PPI -avoid benzo & NSAID ; low dose tylenol may be used for pain if needed -2 gram sodium diet - trend LFT and coags daily ' Code(s): K70.9 - ALCOHOLIC LIVER DISEASE, UNSPECIFIED (2) Hepatic encephalopathy Code(s): K72.90 - HEPATIC FAILURE, UNSPECIFIED WITHOUT COMA (3) Alcohol dependence with uncomplicated withdrawal Code(s): F10.230 - ALCOHOL DEPENDENCE WITH WITHDRAWAL, UNCOMPLICATED
[2018-01-23 08:11] LABS: HEMATOCRIT 30.3 % (35.4-49); MCH 37.1 pg (25.7-33.7); MEAN CELL VOLUME 112.2 fl (80-96); MEAN PLT VOLUME 9.6 fl (7.5-11.1); PLATELET COUNT 161 K/MM3 (134-434); RDW 16.9 % (11.9-15.9); WHITE BLOOD COUNT 13.5 K/mm3 (4.0-10.0)
[2018-01-23 08:28] LABS: INR 1.3 (0.83-1.09); PROTHROMBIN TIME (PATIENT) 15.4 SEC (9.7-13.0)
[2018-01-23 08:41] LABS: ALBUMIN 2.1 g/dl (3.4-5.0); CO2 29 mmol/L (21-32); GLUCOSE,RANDOM 89 mg/dL (74-106); LDH 362 U/L (87-246)
[2018-01-23] MEDS: PANTOPRAZOLE 40 MG TABLET (FP) PO SCH (09:41)
[2018-01-23] MEDS: predniSONE 20 MG TABLET (UD) PO SCH (09:41)
[2018-01-23] MEDS: THIAMINE HCL 200 MG/2 ML VIAL IM SCH (09:45)
[2018-01-23] MEDS: RIFAXIMIN 550 MG TABLET (UD) PO SCH ×2 (09:53→21:42)
--- NOTE | 2018-01-23 10:37 | PN ---
Physical Exam: SUBJECTIVE: Patient seen and examined. No acute events overnight. Pt. has been eating better. Pt. has magic cup. OBJECTIVE: Vital Signs Period Temp Pulse Resp BP Sys/Glynn Pulse Ox Last 24 Hr 97.8 F-99.1 F 84-97 18-20 117-151/58-79 100 GENERAL: The patient is more awake, and alert and oriented to name only. HEAD: Normal with no signs of trauma. EYES: PERRL, Sclera icterus, conjunctiva clear. No ptosis. ENT: Ears normal, nares patent, oropharynx clear without exudates, moist mucous membranes, foul breath, No JVD NECK: Trachea midline, full range of motion, supple. LUNGS: no accessory muscle use, coarse breath sounds HEART: regular rate and rhythm, S1, S2 without murmur ABDOMEN: Soft, jaundiced, diffuse TTP most prominent in LUQ, epigastrium, periumbilical and LLQ, dull to percussion, abdomen is distended, normoactive bowel sounds, guarding, no rebound, increased hepatomegaly and splenomegaly compared to yesterday, no masses. EXTREMITIES: 2+ dorsal pedal and left radial pulses, warm, well-perfused, no calf tenderness, trace lower extremity edema. NEUROLOGICAL: Speaking more coherently today but still confused, gait not observed. PSYCH: Normal mood, normal affect. SKIN: Warm, dry, normal turgor, angiomas noted under panniculus and in groin Laboratory Results - last 24 hr 01/22/18 01/23/18 01/23/18 06:00 07:30 07:30 WBC 13.5 H RBC 2.70 L Hgb 10.0 L Hct 30.3 L D MCV 112.2 H MCH 37.1 H MCHC 33.0 RDW 16.9 H Plt Count 161 MPV 9.6 Neutrophils % (Manual) 72.0 Band Neutrophils % 6.0 Lymphocytes % (Manual) 12.0 D Monocytes % (Manual) 6 D Eosinophils % (Manual) 0.0 Basophils % (Manual) 0.0 Myelocytes % (Man) 3 H D Promyelocytes % (Man) 0 Blast Cells % (Manual) 0 Metamyelocytes 0 Hypochromia 0 Platelet Estimate Adequate Polychromasia 0 Poikilocytosis 0 Anisocytosis 1+ Microcytosis 0 Macrocytosis 1+ Stomatocytes 1+ PT with INR INR Chloride < 50 L Carbon Dioxide 29 Anion Gap -5 L BUN 16 Creatinine 1.5 H Creat Clearance w eGFR 45.62 Random Glucose 89 Calcium 8.4 L Phosphorus 3.6 Magnesium 1.7 L Total Bilirubin 8.0 H AST 140 H ALT 113 H Alkaline Phosphatase 583 H LD Total 362 H Total Protein 8.5 H Albumin 2.1 L 01/23/18 07:30 WBC RBC Hgb Hct MCV MCH MCHC RDW Plt Count MPV Neutrophils % (Manual) Band Neutrophils % Lymphocytes % (Manual) Monocytes % (Manual) Eosinophils % (Manual) Basophils % (Manual) Myelocytes % (Man) Promyelocytes % (Man) Blast Cells % (Manual) Metamyelocytes Hypochromia Platelet Estimate Polychromasia Poikilocytosis Anisocytosis Microcytosis Macrocytosis Stomatocytes PT with INR 15.40 H INR 1.30 H Chloride Carbon Dioxide Anion Gap BUN Creatinine Creat Clearance w eGFR Random Glucose Calcium Phosphorus Magnesium Total Bilirubin AST ALT Alkaline Phosphatase LD Total Total Protein Albumin Active Medications Home Medications Medication Instructions Recorded NK [No Known Home Medication] 01/22/18 Current Medications Folic Acid (Folic Acid Injection -) 1 mg SQ DAILY [facility] Last Admin: 01/22/18 17:25 Dose: 1 mg Haloperidol (Haldol Injection (Fast Acting) -) 5 mg IM ONCE PRN PRN Reason: AGITATION Heparin Sodium (Porcine) (Heparin -) 5,000 unit SQ TID [facility] Last Admin: 01/22/18 14:53 Dose: 5,000 unit Lactulose (Cephulac (Oral Use)) 20 gm PO TID [facility] Last Admin: 01/23/18 05:49 Dose: 20 gm Pantoprazole Sodium (Protonix -) 40 mg PO DAILY [facility] Last Admin: 01/23/18 09:41 Dose: 40 mg Prednisone (Deltasone -) 40 mg PO DAILY [facility] Last Admin: 01/23/18 09:41 Dose: 40 mg Rifaximin (Xifaxan -) 550 mg PO BID [facility] Last Admin: 01/23/18 09:53 Dose: 550 mg Thiamine HCl (Vitamin B1 Injection -) 100 mg IM DAILY [facility] Stop: 01/24/18 10:01 Last Admin: 01/23/18 09:45 Dose: 100 mg ASSESSMENT/PLAN: 77 y/o M w/ PMHx. EtOH abuse presented from [facility] w/ AMS 2/2 hepatic encephalopathy w/ associated cholelithiasis and chronic pancreatitis. #Hepatic encephalopathy 2/2 cirrhosis and benzodiazepine usage -CIWA score: 7 based on agitation, confusion and tremor -Maddrey: 26.8 as calculated by me (using a reference PT of 11, would be 22.2 if 12 is used). -LFTs trending down however TBili decreased from 5.9-->5.1 -D/C Ativan. AVOID Benzodiazepene usage per Dr. Hassan (GI Consult), as Pt. has decreased clearance of benzos. -started Lasix 20mg and Aldactone 50mg for diuresis of ascites -c/w Rifaximin 550mg BID -c/w Prednisone 40mg daily and then slow steroid taper on discharge, however Pt. is homeless and will likely be lost to follow up as his [facility] is in [place]. -switched Protonix 40mg PO Daily -Haldol PRN for agitation -Increased Lactulose to 20gm QID -NGT placed 01/15/18; removed 01/18/18 -daily thiamine IM and folate SQ -monitor and replete electrolytes -S/S consultation appreciated -fall risk precautions -aspiration precautions -elevate HOB -Abdominal US: cholelithiasis w/o cholecystitis, hepatomegaly w/ diffuse fatty infiltration; Rpt. US shows moderate ascites, f/u paracentesis results -Abdominal CT noted -UTox: Positive for Benzos -AFP wnl (3.6) #Hyperbilirubinemia induced pruritis-resolving? -Pt. noted to have angiomas in inguinal region of skin. -ID consult (Dr. Paris) appreciated- no indication to treat at this time as Pt. does not have scabies, likely hyperbilirubinemia induced pruritis. #R/O CHF- ruled out -BNP: 3,389 likely d/t hepatic dysfunction -monitor volume status -echo: mild MR, normal EF, normal size, thickness and function of LV #F/E/N -D/c IVF encourage PO intake -monitor and replete electrolytes -Dysphagia puree nectar thick liquids diet w/ 2gm Na+ restriction #PPx -DVT: Lovenox SQ -GI: Protonix 40mg PO #Code -Full #Dispo -Med/surg--> SNF on discharge Visit type - Emergency Visit Emergency Visit: Yes ED Registration Date: 01/14/18 Care time: The patient presented to the Emergency Department on the above date and was hospitalized for further evaluation of their emergent condition. - New Patient This patient is new to me today: No - Critical Care Critical Care patient: No - Discharge Referral Referred to [facility] No
[2018-01-23 11:50] LABS: CREATININE 0.7 mg/dL (0.55-1.3)
[2018-01-23 11:51] LABS: ANION GAP 6 MMOL/L (8-16); CHLORIDE 111 mmol/L (98-107); POTASSIUM 3.6 mmol/L (3.5-5.1); SODIUM 146 mmol/L (136-145)
[2018-01-23 11:52] LABS: BLOOD UREA NITROGEN 12 mg/dL (7-18); MAGNESIUM 1.4 mg/dL (1.8-2.4); PHOSPHOROUS 2.9 mg/dL (2.5-4.9)
[2018-01-23 11:53] LABS: BILIRUBIN,TOTAL 6.6 mg/dL (0.2-1); TOT PROT 4.9 g/dl (6.4-8.2)
[2018-01-23 11:54] LABS: ALK PHOS 230 U/L (45-117); SGOT/AST 128 U/L (15-37); SGPT/ALT 85 U/L (13-61)
[2018-01-23] MEDS ORDERED: MAGNESIUM SULF 50% (8.12 MEQ/2 ML-1 GM VIAL) IVPB ONE (12:00)
[2018-01-23] MEDS ORDERED: MAGNESIUM OXIDE 400 MG TABLET (FP) PO ONE (12:15)
[2018-01-23] MEDS: SPIRONOLACTONE 25 MG TABLET (FP) PO SCH (13:17)
[2018-01-23] MEDS: FUROSEMIDE 20 MG TABLET (FP) PO SCH (13:17)
[2018-01-23] MEDS: FOLIC ACID 5 MG/1 ML SQ SCH (13:17)
--- NOTE | 2018-01-23 14:35 | PN ---
Progress Note, [employer] - Note Progress Note: Selected Entries 01/23/18 01/23/18 09:33 10:43 Breakfast 25% Diet Tolerated Poor Temperature 99.1 F Laboratory Tests 01/22/18 01/23/18 06:00 07:30 WBC 11.6 H 13.5 H Diet upgraded. Medical events noted. Monitor tolerance. Encourage supplements b/ n meals.
[2018-01-23 14:55] LABS: PERITONEAL RBC 736 /mm3
[2018-01-23 15:22] LABS: PERITONEAL FLUID BASOPHIL 1 %; PERITONEAL FLUID LYMPHOCYTE 36 %; PERITONEAL FLUID MACROPHAGE 2 %; PERITONEAL FLUID MONOCYTE 37 %; PERITONEAL FLUID NEUTROPHIL 24 %
--- NOTE | 2018-01-23 17:22 | PN ---
Teaching Attending Note Name of Resident: Erasto Vicente ATTENDING PHYSICIAN STATEMENT I saw and evaluated the patient. I reviewed the resident's note and discussed the case with the resident. I agree with the resident's findings and plan as documented. SUBJECTIVE: not able to obtain hx form patient as still confused . no events OBJECTIVE: NAD, awake, does not follow commands HEENT: telengactasia on forehead, nose , cheeks , and chin . No JVd, MMM. CV: RRR, no MRG Lungs: CTAB Abd: soft, NT. distended. neg wave sign. NT. Ext: no edema on LE. no erythema. ASSESSMENT AND PLAN: 77 y/o man with h/o Alcoholism, HLP, HTN, gout and smoking who presented from [facility] with AMS. He was found ot have acute alcoholic hepatitis and encephalopathy 1- AMS: due to hepatic encephalopathy and possible Wernicke's : improved but not normal - cont high dose thiamine course . cont with po thiamine - cont with lactulose . increase to QID to get to goal BMS - No infection identified on paracentesis 2- Acute alcoholic hepatitis : stable - cont prednisone day 9 3- Acute pancreatitis: improved. tolerated diet 4- ETOH withdrawal: - finished a course of benzos - cont thiamine and folate 5-Ascitis: s/p paracentesis today . not clear how much was remmoved - start lasix and spironolactone - will confirm size of fluid removed to assess fro need to give albumin 6- DVT px : heparin sq.
[2018-01-23] MEDS ORDERED: PT OWN MED DRAWER 7, Y5N ONE (20:43)
[2018-01-23] MEDS: HEPARIN NA (PORCINE) 5,000 UNITS/ML 1ML VIAL SQ SCH (21:42)
[2018-01-24] MEDS: HEPARIN NA (PORCINE) 5,000 UNITS/ML 1ML VIAL SQ SCH ×3 (06:46→21:06)
[2018-01-24 07:33] LABS: BASO % 0.9 % (0-2.0); EOS % 0.7 % (0-4.5); HEMATOCRIT 28.8 % (35.4-49); HEMOGLOBIN 9.3 GM/dL (11.7-16.9); LYMPH % 8.9 % (8-40); MCH 35.6 pg (25.7-33.7); MCHC 32.1 g/dl (32.0-35.9); MEAN CELL VOLUME 110.9 fl (80-96); MEAN PLT VOLUME 9.8 fl (7.5-11.1); MONO % 4.2 % (3.8-10.2); NEUT % 85.3 % (42.8-82.8); PLATELET COUNT 132 K/MM3 (134-434); RDW 16.4 % (11.9-15.9); WHITE BLOOD COUNT 14.1 K/mm3 (4.0-10.0)
[2018-01-24 07:49] LABS: INR 1.23 (0.83-1.09); PROTHROMBIN TIME (PATIENT) 14.5 SEC (9.7-13.0)
[2018-01-24 09:10] LABS: ALBUMIN 1.8 g/dl (3.4-5.0); ALK PHOS 228 U/L (45-117); ANION GAP 9 MMOL/L (8-16); BILIRUBIN,DIRECT 4.6 mg/dL (0.0-0.2); BILIRUBIN,TOTAL 5.3 mg/dL (0.2-1); BLOOD UREA NITROGEN 13 mg/dL (7-18); CALCIUM 7.9 mg/dL (8.5-10.1); CHLORIDE 110 mmol/L (98-107); CO2 27 mmol/L (21-32); CREATININE 0.6 mg/dL (0.55-1.3); GLUCOSE,RANDOM 80 mg/dL (74-106); MAGNESIUM 1.4 mg/dL (1.8-2.4); PHOSPHOROUS 2.7 mg/dL (2.5-4.9); POTASSIUM 3.6 mmol/L (3.5-5.1); SGOT/AST 107 U/L (15-37); SGPT/ALT 78 U/L (13-61); SODIUM 146 mmol/L (136-145); TOT PROT 4.6 g/dl (6.4-8.2)
[2018-01-24] MEDS ORDERED: PT OWN MED DRAWER 7, Y5N ONE ×3 (11:02→20:41)
[2018-01-24] MEDS: SPIRONOLACTONE 25 MG TABLET (FP) PO SCH (11:05)
[2018-01-24] MEDS: FUROSEMIDE 20 MG TABLET (FP) PO SCH (11:06)
[2018-01-24] MEDS: PANTOPRAZOLE 40 MG TABLET (FP) PO SCH (11:06)
[2018-01-24] MEDS: predniSONE 20 MG TABLET (UD) PO SCH (11:06)
[2018-01-24] MEDS: RIFAXIMIN 550 MG TABLET (UD) PO SCH ×3 (11:07→21:07)
[2018-01-24] MEDS: THIAMINE HCL 200 MG/2 ML VIAL IM SCH ×3 (11:09→11:56)
[2018-01-24] MEDS ORDERED: MAGNESIUM OXIDE 400 MG TABLET (FP) PO ONE (11:15)
--- NOTE | 2018-01-24 11:15 | PN ---
Teaching Attending Note Name of Resident: Erasto Vicente ATTENDING PHYSICIAN STATEMENT I saw and evaluated the patient. I reviewed the resident's note and discussed the case with the resident. I agree with the resident's findings and plan as documented. SUBJECTIVE: No fever or chills. cont to have abd pain. No BM yesterday . limited hx OBJECTIVE: NAD, awake, does not know his locatio or his age HEENT: telengactasia and erythema on forehead, nose , cheeks , and chin . No JVd , MMM. CV: RRR, no MRG Lungs: CTAB Abd: soft, NT. distended.TTP in epigastric area , no guarding Ext: no edema on LE. no erythema. ASSESSMENT AND PLAN: 77 y/o man with h/o Alcoholism, HLP, HTN, gout and smoking who presented from [facility] with AMS. He was found ot have acute alcoholic hepatitis and encephalopathy 1- AMS: due to hepatic encephalopathy and possible Wernicke's : improved but not normal - cont thiamine daily.. is high dose course was interrupted due to loss of IV access . switch to po daily - cont with lactulose . increase to get to goal BMS - No infection identified on paracentesis . 2- Acute alcoholic hepatitis: stable LFTS . - cont prednisone day 10 3- Acute pancreatitis: improved. tolerated diet 4- ETOH withdrawal: - finished a course of benzos - cont thiamine and folate 5-Ascitis: s/p paracentesis . - started lasix and spironolactone yesterday. watch volume status and renal function 6- DVT px : heparin sq.
[2018-01-24] MEDS: LACTULOSE 20 GM/30 ML UDC (FOR ORAL USE ONLY) PO SCH ×4 (11:22→21:05)
[2018-01-24] MEDS: POTASSIUM CHLORIDE TABS 20 MEQ TABLET.ER (FP) PO SCH ×2 (11:28→11:56)
[2018-01-24 11:35] LABS: ANISOCYTOSIS 1+; MACROCYTOSIS 1+; PLATELET ESTIMATE DECREASED
--- NOTE | 2018-01-24 11:58 | PN ---
Physical Exam: SUBJECTIVE: Patient seen and examined. No fevers, no BM recorded last night. Pt. had a BM later in the day. Pt. states that he feels the same as yesterday. OBJECTIVE: Vital Signs Period Temp Pulse Resp BP Sys/Glynn Pulse Ox Last 24 Hr 97.5 F-98.7 F 71-90 18-20 134-156/71-93 98 GENERAL: The patient is more awake, and alert and oriented to name only. HEAD: Normal with no signs of trauma. EYES: PERRL, Sclera icterus, conjunctiva clear. No ptosis. ENT: Ears normal, nares patent, oropharynx clear without exudates, moist mucous membranes, No JVD NECK: Trachea midline, full range of motion, supple. LUNGS: no accessory muscle use, coarse breath sounds HEART: regular rate and rhythm, S1, S2 without murmur ABDOMEN: Soft, jaundiced, diffuse TTP most prominent in LUQ, epigastrium, periumbilical and LLQ, dull to percussion, abdomen is distended, normoactive bowel sounds, guarding, no rebound, increased hepatomegaly and splenomegaly compared to yesterday, no masses. EXTREMITIES: 2+ dorsal pedal and left radial pulses, warm, well-perfused, no calf tenderness, trace lower extremity edema. NEUROLOGICAL: Speaking more coherently today but still confused, gait not observed. PSYCH: Normal mood, normal affect. SKIN: Warm, dry, normal turgor, angiomas noted under panniculus and in groin Laboratory Results - last 24 hr 01/23/18 01/24/18 01/24/18 12:00 06:15 06:15 WBC 14.1 H RBC 2.60 L Hgb 9.3 L Hct 28.8 L MCV 110.9 H MCH 35.6 H MCHC 32.1 RDW 16.4 H Plt Count 132 L MPV 9.8 Absolute Neuts (auto) 12.1 H Neutrophils % 85.3 H Lymphocytes % 8.9 Monocytes % 4.2 Eosinophils % 0.7 D Basophils % 0.9 Nucleated RBC % 0 PT with INR 14.50 H INR 1.23 H Sodium Potassium Chloride Carbon Dioxide Anion Gap BUN Creatinine Creat Clearance w eGFR Random Glucose Calcium Phosphorus Magnesium Total Bilirubin Direct Bilirubin AST ALT Alkaline Phosphatase Total Protein Albumin Peritoneal WBC 90 Peritoneal RBC 736 Periton Neutrophils 24 Periton Lymphocytes 36 Peritoneal Monocytes 37 Peritoneal Basophils 1 Periton Macrophages 2 01/24/18 06:15 WBC RBC Hgb Hct MCV MCH MCHC RDW Plt Count MPV Absolute Neuts (auto) Neutrophils % Lymphocytes % Monocytes % Eosinophils % Basophils % Nucleated RBC % PT with INR INR Sodium 146 H Potassium 3.6 Chloride 110 H Carbon Dioxide 27 Anion Gap 9 BUN 13 Creatinine 0.6 Creat Clearance w eGFR > 60 Random Glucose 80 Calcium 7.9 L Phosphorus 2.7 Magnesium 1.4 L Total Bilirubin 5.3 H Direct Bilirubin 4.6 H AST 107 H ALT 78 H Alkaline Phosphatase 228 H Total Protein 4.6 L Albumin 1.8 L Peritoneal WBC Peritoneal RBC Periton Neutrophils Periton Lymphocytes Peritoneal Monocytes Peritoneal Basophils Periton Macrophages Active Medications Home Medications Medication Instructions Recorded NK [No Known Home Medication] 01/22/18 Current Medications Folic Acid (Folic Acid Injection -) 1 mg SQ DAILY [facility] Last Admin: 01/23/18 13:17 Dose: 1 mg Furosemide (Lasix -) 20 mg PO DAILY [facility] Last Admin: 01/24/18 11:06 Dose: 20 mg Haloperidol (Haldol Injection (Fast Acting) -) 5 mg IM ONCE PRN PRN Reason: AGITATION Heparin Sodium (Porcine) (Heparin -) 5,000 unit SQ TID [facility] Last Admin: 01/24/18 06:46 Dose: 5,000 unit Lactulose (Cephulac (Oral Use)) 20 gm PO Q4H [facility] Magnesium Oxide (Mag-Ox -) 400 mg PO BID [facility] Stop: 01/26/18 10:01 Pantoprazole Sodium (Protonix -) 40 mg PO DAILY [facility] Last Admin: 01/24/18 11:06 Dose: 40 mg Potassium Chloride (K-Dur -) 20 meq PO DAILY [facility] Last Admin: 01/24/18 11:56 Dose: Not Given Prednisone (Deltasone -) 40 mg PO DAILY [facility] Last Admin: 01/24/18 11:06 Dose: 40 mg Rifaximin (Xifaxan -) 550 mg PO BID [facility] Last Admin: 01/24/18 11:42 Dose: Not Given Spironolactone (Aldactone -) 50 mg PO DAILY [facility] Last Admin: 01/24/18 11:05 Dose: 50 mg Thiamine HCl (Vitamin B1 -) 100 mg PO DAILY [facility] ASSESSMENT/PLAN: 77 y/o M w/ PMHx. EtOH abuse presented from [facility] w/ AMS 2/2 hepatic encephalopathy w/ associated cholelithiasis and chronic pancreatitis. #Hepatic encephalopathy 2/2 cirrhosis and benzodiazepine usage -CIWA score: 7 based on agitation, confusion and tremor -Maddrey: 21.4 as calculated by me (using a reference PT of 11, would be 16.8 if 12 is used). -LFTs trending down however TBili decreased from 5.9-->5.1 -D/C Ativan. AVOID Benzodiazepene usage per Dr. Hassan (GI Consult), as Pt. has decreased clearance of benzos. -increased Lasix to 40mg and Aldactone 100mg for diuresis of ascites -c/w Rifaximin 550mg BID -begin Prednisone taper, because Pt. is homeless and will likely be lost to follow up as his group home is in [place]. -switched Protonix 40mg PO Daily -Haldol PRN for agitation -Decreased Lactulose to 20gm TID -NGT placed 01/15/18; removed 01/18/18 -daily thiamine IM and folate SQ -monitor and replete electrolytes -S/S consultation appreciated -fall risk precautions -aspiration precautions -elevate HOB -Abdominal US: cholelithiasis w/o cholecystitis, hepatomegaly w/ diffuse fatty infiltration; Rpt. US shows moderate ascites, f/u paracentesis results -Abdominal CT noted -UTox: Positive for Benzos -AFP wnl (3.6) #Hyperbilirubinemia induced pruritis-resolving? -Pt. noted to have angiomas in inguinal region of skin. -ID consult (Dr. Paris) appreciated- no indication to treat at this time as Pt. does not have scabies, likely hyperbilirubinemia induced pruritis. #R/O CHF- ruled out -BNP: 3,389 likely d/t hepatic dysfunction -monitor volume status -echo: mild MR, normal EF, normal size, thickness and function of LV #F/E/N -D/c IVF encourage PO intake -monitor and replete electrolytes -Dysphagia puree nectar thick liquids diet w/ 2gm Na+ restriction #PPx -DVT: Lovenox SQ -GI: Protonix 40mg PO #Code -Full #Dispo -Med/surg--> SNF on discharge Visit type - Emergency Visit Emergency Visit: Yes ED Registration Date: 01/14/18 Care time: The patient presented to the Emergency Department on the above date and was hospitalized for further evaluation of their emergent condition. - New Patient This patient is new to me today: No - Critical Care Critical Care patient: No - Discharge Referral Referred to [facility] No
--- NOTE | 2018-01-24 12:29 | PN ---
Progress Note, [employer] PATTERN[employer]ER - Note Progress Note: Vocal wetness/dysphonia with difficulty with large pill, coughing, vocal clearance. Poor PO acceptance, mainly liquids. Suspect dysphagia. REC: MBS Please change large pill formula to liquid, as they can not be crushed.
[2018-01-24] MEDS: FOLIC ACID 5 MG/1 ML SQ SCH (14:20)
--- NOTE | 2018-01-24 16:29 | PATH ---
Cytology Non-Gynecological Report Patient Name: TITO LEWIS [facility]. Rec. #: [id number] /Age/Gender: 1940 (Age: 77) / M Account: [id number] Location: [facility] MED/SURG Taken: 01/23/2018 Received: 01/23/2018 Reported: 01/24/2018 Physicians: Jem Coleman M.D. Specimen(s) Received A: PERITONEAL FLUID RECEIVED IN 50% ALCOHOL B: PERITONEAL FLUID RECEIVED FRESH Clinical History Ascites Final Diagnosis ABDOMINAL FLUID, PARACENTESIS: SATISFACTORY FOR EVALUATION. NEGATIVE FOR MALIGNANT CELLS. MESOTHELIAL CELLS, MACROPHAGES, AND RARE LYMPHOCYTES PRESENT. Electronically Signed Laura Rhoades M.D. Gross Description A. Approximately 50cc of yellow fluid received fixed in 50% alcohol. One cytofunnel and one cellblock prepared. B. Approximately 300cc of yellow fluid received fresh. One cytofunnel and one cellblock prepared.
--- NOTE | 2018-01-24 17:02 | PN ---
GI Progress Note Subjective: No acute events no SBP on paracentesis Patient more awake - Objective Vital Signs: Vital Signs Temperature 98.2 F 01/24/18 14:40 Pulse Rate 78 01/24/18 14:40 Respiratory Rate 20 01/24/18 14:40 Blood Pressure 140/74 01/24/18 14:40 O2 Sat by Pulse Oximetry (%) 98 01/23/18 21:00 Constitutional: Calm Eyes: Yes: Sclera Icterus Cardiovascular: Yes: Regular Rate and Rhythm Respiratory: Yes: Diminished (at bases, poor insp effort) Gastrointestinal Inspection: Yes: Distention ...Auscultate: Yes: Normoactive Bowel Sounds ...Palpate: Yes: Tenderness (TTP RUQ) ...Percussion: Yes: Dullness (Awake). No: Tympanitic Extremities: Yes: Other (upper extremity ecchymoses) Edema: No Neurological: No: [facility] Labs: CBC, BMP 01/24/18 06:15 01/24/18 06:15 INR, PTT INR 1.23 (0.83-1.09) H 01/24/18 06:15 Hepatic Panel Total Bilirubin 5.3 mg/dL (0.2-1) H 01/24/18 06:15 Direct Bilirubin 4.6 mg/dL (0.0-0.2) H 01/24/18 06:15 AST 107 U/L (15-37) H 01/24/18 06:15 ALT 78 U/L (13-61) H 01/24/18 06:15 Alkaline Phosphatase 228 U/L (45-117) H 01/24/18 06:15 Albumin 1.8 g/dl (3.4-5.0) L 01/24/18 06:15 Problem List - Problems (1) Alcoholic cirrhosis of liver without ascites Assessment/Plan: Clinically improved Bilirubin improved Advise: Aldactone 100mg daily Lasix 40mg daily Daily weights / I's and O's 2g Low Na diet Aspiration precautions Fall precautions Taper prednisone. would have concerns regarding follow-up while on prednisone therapy for tapering purposes as an outpatient Rifaximin 550mg PO BID Taper down lactulose to 30g TID. Check repeat ammonia level in AM. Code(s): K70.30 - ALCOHOLIC CIRRHOSIS OF LIVER WITHOUT ASCITES
[2018-01-24] MEDS: MAGNESIUM OXIDE 400 MG TABLET (FP) PO SCH (21:05)
[2018-01-25] MEDS: LACTULOSE 20 GM/30 ML UDC (FOR ORAL USE ONLY) PO SCH ×3 (05:15→21:03)
[2018-01-25] MEDS: HEPARIN NA (PORCINE) 5,000 UNITS/ML 1ML VIAL SQ SCH ×3 (05:15→21:03)
[2018-01-25 07:06] LABS: HEMATOCRIT 29.1 % (35.4-49); HEMOGLOBIN 9.3 GM/dL (11.7-16.9); MCH 35.4 pg (25.7-33.7); MCHC 32.1 g/dl (32.0-35.9); MEAN CELL VOLUME 110.2 fl (80-96); MEAN PLT VOLUME 9.4 fl (7.5-11.1); PLATELET COUNT 142 K/MM3 (134-434); RBC 2.64 M/mm3 (4.00-5.60); RDW 16.4 % (11.9-15.9); WHITE BLOOD COUNT 15.3 K/mm3 (4.0-10.0)
[2018-01-25 07:42] LABS: ALBUMIN 1.9 g/dl (3.4-5.0); ALK PHOS 249 U/L (45-117); ANION GAP 7 MMOL/L (8-16); BILIRUBIN,TOTAL 5.3 mg/dL (0.2-1); BLOOD UREA NITROGEN 15 mg/dL (7-18); CALCIUM 7.8 mg/dL (8.5-10.1); CHLORIDE 108 mmol/L (98-107); CO2 30 mmol/L (21-32); CREATININE 0.7 mg/dL (0.55-1.3); GLUCOSE,RANDOM 90 mg/dL (74-106); MAGNESIUM 1.4 mg/dL (1.8-2.4); PHOSPHOROUS 3.1 mg/dL (2.5-4.9); POTASSIUM 3.4 mmol/L (3.5-5.1); SGOT/AST 119 U/L (15-37); SGPT/ALT 78 U/L (13-61); SODIUM 144 mmol/L (136-145); TOT PROT 4.8 g/dl (6.4-8.2)
[2018-01-25 08:14] LABS: INR 1.26 (0.83-1.09); PROTHROMBIN TIME (PATIENT) 14.9 SEC (9.7-13.0)
[2018-01-25] MEDS: predniSONE 10 MG TABLET (UD) PO SCH (08:57)
[2018-01-25] MEDS: THIAMINE HCL 100 MG TABLET (FP) PO SCH (09:56)
[2018-01-25] MEDS: MAGNESIUM OXIDE 400 MG TABLET (FP) PO SCH ×2 (09:57→21:04)
[2018-01-25] MEDS: FUROSEMIDE 40 MG TABLET (FP) PO SCH (09:57)
[2018-01-25] MEDS: POTASSIUM CHLORIDE TABS 20 MEQ TABLET.ER (FP) PO SCH (09:58)
[2018-01-25] MEDS: PANTOPRAZOLE 40 MG TABLET (FP) PO SCH (09:58)
[2018-01-25] MEDS: RIFAXIMIN 550 MG TABLET (UD) PO SCH ×2 (09:59→21:02)
[2018-01-25] MEDS: SPIRONOLACTONE 25 MG TABLET (FP) PO SCH (09:59)
--- NOTE | 2018-01-25 11:20 | PN ---
Progress Note (short form) - Note Progress Note: patient should have hepatitis B surface antibody checked. if negative, will need vaccination. Problem List - Problems (1) Alcoholic cirrhosis of liver without ascites Code(s): K70.30 - ALCOHOLIC CIRRHOSIS OF LIVER WITHOUT ASCITES
[2018-01-25] MEDS: FOLIC ACID 5 MG/1 ML SQ SCH (11:28)
--- NOTE | 2018-01-25 13:34 | PN ---
Physical Exam: SUBJECTIVE: Patient seen and examined. Pt. states he feels the same. No BMs, no agitation and no fevers overnight. Pt. is better able to communicate today as compared to yesterday with increased eye opening. OBJECTIVE: Vital Signs Period Temp Pulse Resp BP Sys/Glynn Pulse Ox Last 24 Hr 97.7 F-99.1 F 76-83 18-20 138-155/72-91 97 GENERAL: The patient is awake, alert, and oriented to name and general location ([facility]), in no acute distress. Pt. is better able to communicate today HEAD: Normal with no signs of trauma. EYES: PERRL, Sclera icterus, conjunctiva clear. No ptosis. ENT: Ears normal, nares patent, oral thrush?, moist mucous membranes, No JVD NECK: Trachea midline, full range of motion, supple. LUNGS: no accessory muscle use, coarse breath sounds HEART: regular rate and rhythm, S1, S2 without murmur ABDOMEN: Soft, jaundiced, diffuse TTP most prominent in LUQ, epigastrium, periumbilical vs suprapubic? and LLQ, dull to percussion, abdomen is distended- less than yesterday, normoactive bowel sounds, guarding, no rebound, hepatomegaly and splenomegaly. EXTREMITIES: 2+ dorsal pedal pulses, warm, well-perfused, no calf tenderness, trace lower extremity edema decreased from yesterday. NEUROLOGICAL: Speaking more coherently today but still confused, gait not observed. PSYCH: Normal mood, normal affect. SKIN: Warm, dry, normal turgor, angiomas noted under panniculus and in groin Laboratory Results - last 24 hr 01/25/18 01/25/18 01/25/18 06:15 06:15 06:15 WBC 15.3 H RBC 2.64 L Hgb 9.3 L Hct 29.1 L MCV 110.2 H MCH 35.4 H MCHC 32.1 RDW 16.4 H Plt Count 142 MPV 9.4 PT with INR INR Sodium 144 Potassium 3.4 L Chloride 108 H Carbon Dioxide 30 Anion Gap 7 L BUN 15 Creatinine 0.7 Creat Clearance w eGFR > 60 Random Glucose 90 Calcium 7.8 L Phosphorus 3.1 Magnesium 1.4 L Total Bilirubin 5.3 H AST 119 H ALT 78 H Alkaline Phosphatase 249 H Ammonia 33.90 H Total Protein 4.8 L Albumin 1.9 L 01/25/18 06:15 WBC RBC Hgb Hct MCV MCH MCHC RDW Plt Count MPV PT with INR 14.90 H INR 1.26 H Sodium Potassium Chloride Carbon Dioxide Anion Gap BUN Creatinine Creat Clearance w eGFR Random Glucose Calcium Phosphorus Magnesium Total Bilirubin AST ALT Alkaline Phosphatase Ammonia Total Protein Albumin Active Medications Home Medications Medication Instructions Recorded NK [No Known Home Medication] 01/22/18 Current Medications Folic Acid (Folic Acid Injection -) 1 mg SQ DAILY [facility] Last Admin: 01/24/18 14:20 Dose: Not Given Furosemide (Lasix -) 40 mg PO DAILY [facility] Last Admin: 01/25/18 09:57 Dose: 40 mg Haloperidol (Haldol Injection (Fast Acting) -) 5 mg IM ONCE PRN PRN Reason: AGITATION Heparin Sodium (Porcine) (Heparin -) 5,000 unit SQ TID [facility] Last Admin: 01/25/18 05:15 Dose: 5,000 unit Lactulose (Cephulac (Oral Use)) 30 gm PO TID [facility] Last Admin: 01/25/18 05:15 Dose: 30 gm Magnesium Oxide (Mag-Ox -) 400 mg PO BID [facility] Stop: 01/26/18 10:01 Last Admin: 01/25/18 09:57 Dose: 400 mg Pantoprazole Sodium (Protonix -) 40 mg PO DAILY [facility] Last Admin: 01/25/18 09:58 Dose: 40 mg Potassium Chloride (K-Dur -) 20 meq PO DAILY [facility] Last Admin: 01/25/18 09:58 Dose: 20 meq Prednisone (Deltasone -) 30 mg PO DAILY [facility] Last Admin: 01/25/18 08:57 Dose: 30 mg Rifaximin (Xifaxan -) 550 mg PO BID [facility] Last Admin: 01/25/18 09:59 Dose: 550 mg Spironolactone (Aldactone -) 100 mg PO DAILY [facility] Last Admin: 01/25/18 09:59 Dose: 100 mg Thiamine HCl (Vitamin B1 -) 100 mg PO DAILY [facility] Last Admin: 01/25/18 09:56 Dose: 100 mg ASSESSMENT/PLAN: 77 y/o M w/ PMHx. EtOH abuse presented from [facility] w/ AMS 2/2 hepatic encephalopathy w/ associated cholelithiasis and chronic pancreatitis. #Hepatic encephalopathy 2/2 cirrhosis and benzodiazepine usage -CIWA score: 7 based on agitation, confusion and tremor -Maddrey: 23.2 as calculated by me (using a reference PT of 11, would be 18.6 if 12 is used). -LFTs trending down however TBili decreased from 6.6-->5.3 -D/C Ativan. AVOID Benzodiazepene usage per Dr. Hassan (GI Consult), as Pt. has decreased clearance of benzos. -increased Lasix to 40mg and Aldactone 100mg for diuresis of ascites -NH3: 33.9 -c/w Rifaximin 550mg BID -begin Prednisone taper, because Pt. is homeless and will likely be lost to follow up as his longterm is in [place]. -switched Protonix 40mg PO Daily -Haldol PRN for agitation -Decreased Lactulose to 20gm TID -NGT placed 01/15/18; removed 01/18/18 -daily thiamine IM and folate SQ -monitor and replete electrolytes -S/S consultation appreciated -fall risk precautions -aspiration precautions -elevate HOB -Abdominal US: cholelithiasis w/o cholecystitis, hepatomegaly w/ diffuse fatty infiltration; Rpt. US shows moderate ascites, f/u paracentesis results -Abdominal CT noted -UTox: Positive for Benzos -AFP wnl (3.6) -f/u UA because Pt. has been bed bound for 11 days, may have some urinary stasis. #Hyperbilirubinemia induced pruritis-resolving? -Pt. noted to have angiomas in inguinal region of skin. -ID consult (Dr. Paris) appreciated- no indication to treat at this time as Pt. does not have scabies, likely hyperbilirubinemia induced pruritis. #R/O CHF- ruled out -BNP: 3,389 likely d/t hepatic dysfunction -monitor volume status -echo: mild MR, normal EF, normal size, thickness and function of LV #F/E/N -D/c IVF encourage PO intake -monitor and replete electrolytes -Dysphagia puree nectar thick liquids diet w/ 2gm Na+ restriction #PPx -DVT: Lovenox SQ -GI: Protonix 40mg PO #Code -Full #Dispo -Med/surg--> SNF on discharge? Pt. walked 20 ft. with PT 01/25/18 Visit type - Emergency Visit Emergency Visit: Yes ED Registration Date: 01/14/18 Care time: The patient presented to the Emergency Department on the above date and was hospitalized for further evaluation of their emergent condition. - New Patient This patient is new to me today: No - Critical Care Critical Care patient: No - Discharge Referral Referred to [facility] No
--- NOTE | 2018-01-25 13:44 | PN ---
Progress Note, [employer]EL[employer] ADDR[employer]ER - Note Progress Note: Selected Entries 01/24/18 01/24/18 10:00 17:15 Supper 75% 75% Diet upgraded. MBS reviewed with staff. Encourage PO intake and supplements.
[2018-01-25] MEDS ORDERED: POTASSIUM CHLORIDE TABS 20 MEQ TABLET.ER (FP) PO ONE (15:00)
--- NOTE | 2018-01-25 17:28 | PN ---
Teaching Attending Note Name of Resident: Erasto Vicente ATTENDING PHYSICIAN STATEMENT I saw and evaluated the patient. I reviewed the resident's note and discussed the case with the resident. I agree with the resident's findings and plan as documented. SUBJECTIVE: no fever or chills. No abd pain. has dysuria OBJECTIVE: NAD, more awake, knows his age, and location . HEENT:scaly skin and telengactasia and erythema on forehead, nose , cheeks , and chin . No JVd, MMM. CV: RRR, no MRG Lungs: CTAB Abd: soft, NT. distended.NT, NL BS Ext: no edema on LE. no erythema. ASSESSMENT AND PLAN: 77 y/o man with h/o Alcoholism, HLP, HTN, gout and smoking who presented from [facility] with AMS. He was found ot have acute alcoholic hepatitis and encephalopathy 1- AMS: due to hepatic encephalopathy and possible Wernicke's :much improved today - cont thiamine daily.. - cont with lactulose. - No infection identified on paracentesis . 2- Acute alcoholic hepatitis: stable LFTS . - due to his homless status, and due to risk associated with non compliance, will start tapering his prednisone . appreciate Gi recs 3- Acute pancreatitis: improved. tolerated diet 4- ETOH withdrawal: - finished a course of benzos - cont thiamine and folate 5-Ascitis: s/p paracentesis . - cont lasix and spironolactone 6- Cirrhosis. follow hep b surface Abs. 7- DVT px : heparin sq.
[2018-01-26] MEDS: LACTULOSE 20 GM/30 ML UDC (FOR ORAL USE ONLY) PO SCH ×3 (06:05→21:09)
[2018-01-26] MEDS: HEPARIN NA (PORCINE) 5,000 UNITS/ML 1ML VIAL SQ SCH ×3 (06:05→21:09)
[2018-01-26 07:10] LABS: BASO % 0.4 % (0-2.0); EOS % 0.3 % (0-4.5); HEMATOCRIT 26.9 % (35.4-49); HEMOGLOBIN 9.1 GM/dL (11.7-16.9); LYMPH % 8.4 % (8-40); MCH 37.2 pg (25.7-33.7); MEAN CELL VOLUME 109.4 fl (80-96); MEAN PLT VOLUME 9.9 fl (7.5-11.1); MONO % 4.2 % (3.8-10.2); NEUT % 86.7 % (42.8-82.8); PLATELET COUNT 163 K/MM3 (134-434); RBC 2.45 M/mm3 (4.00-5.60); RDW 16.7 % (11.9-15.9); WHITE BLOOD COUNT 14.1 K/mm3 (4.0-10.0)
[2018-01-26 07:24] LABS: INR 1.29 (0.83-1.09); PROTHROMBIN TIME (PATIENT) 15.3 SEC (9.7-13.0)
[2018-01-26 08:03] LABS: ALK PHOS 229 U/L (45-117); ANION GAP 7 MMOL/L (8-16); BILIRUBIN,TOTAL 5.3 mg/dL (0.2-1); BLOOD UREA NITROGEN 14 mg/dL (7-18); CALCIUM 7.7 mg/dL (8.5-10.1); CHLORIDE 109 mmol/L (98-107); CO2 28 mmol/L (21-32); CREATININE 0.7 mg/dL (0.55-1.3); GLUCOSE,RANDOM 81 mg/dL (74-106); MAGNESIUM 1.5 mg/dL (1.8-2.4); PHOSPHOROUS 3.7 mg/dL (2.5-4.9); POTASSIUM 4.1 mmol/L (3.5-5.1); SGOT/AST 118 U/L (15-37); SGPT/ALT 75 U/L (13-61); SODIUM 144 mmol/L (136-145); TOT PROT 4.9 g/dl (6.4-8.2)
[2018-01-26] MEDS: SPIRONOLACTONE 25 MG TABLET (FP) PO SCH (09:24)
[2018-01-26] MEDS: PANTOPRAZOLE 40 MG TABLET (FP) PO SCH (09:25)
[2018-01-26] MEDS: THIAMINE HCL 100 MG TABLET (FP) PO SCH (09:25)
[2018-01-26] MEDS: FUROSEMIDE 40 MG TABLET (FP) PO SCH (09:25)
[2018-01-26] MEDS: POTASSIUM CHLORIDE TABS 20 MEQ TABLET.ER (FP) PO SCH (09:25)
[2018-01-26] MEDS: predniSONE 10 MG TABLET (UD) PO SCH (09:25)
[2018-01-26] MEDS: MAGNESIUM OXIDE 400 MG TABLET (FP) PO SCH (09:26)
[2018-01-26] MEDS: RIFAXIMIN 550 MG TABLET (UD) PO SCH (09:26)
[2018-01-26 11:29] LABS: PLATELET ESTIMATE INCREASED
[2018-01-26] MEDS: FOLIC ACID 5 MG/1 ML SQ SCH (11:40)
--- NOTE | 2018-01-26 11:55 | PN ---
GI Progress Note Subjective: No acute events Appears more awake - Objective Vital Signs: Vital Signs Temperature 97.7 F 01/26/18 10:00 Pulse Rate 84 01/26/18 10:00 Respiratory Rate 20 01/26/18 10:00 Blood Pressure 121/69 01/26/18 10:00 O2 Sat by Pulse Oximetry (%) 99 01/26/18 09:00 Constitutional: Calm Eyes: Yes: Sclera Icterus Cardiovascular: Yes: Regular Rate and Rhythm Respiratory: Yes: CTA Bilaterally Gastrointestinal Inspection: Yes: Distention. No: Scars ...Auscultate: Yes: Normoactive Bowel Sounds ...Palpate: Yes: Tenderness (periumbilical TTP), Other (No RUQ TTP) ...Percussion: No: Tympanitic Edema: No (No LE edema) Neurological: Yes: Alert Labs: CBC, BMP 01/26/18 06:00 01/26/18 06:00 INR, PTT INR 1.29 (0.83-1.09) H 01/26/18 06:00 Laboratory Tests 01/16/18 06:00 Tumor Marker AFP 3.6 Problem List - Problems (1) Alcoholic cirrhosis of liver without ascites Assessment/Plan: Clinically improved Abdomen softer, with focal TTP in periumbilical area: can have surgery comment on the fat filled umbilical hernia noted on CT scan MRI/MRCP of the abdomen with and without contrast to more closely evaluate liver and biliary tract Continue Lactulose 30g TID: titrate ti 3-4 loose BMs per day and by mental status Riifaximin 550mg PO BID 2g low Na diet Code(s): K70.30 - ALCOHOLIC CIRRHOSIS OF LIVER WITHOUT ASCITES
--- NOTE | 2018-01-26 12:27 | PN ---
Teaching Attending Note Name of Resident: Jasmine Vasquez ATTENDING PHYSICIAN STATEMENT I saw and evaluated the patient. I reviewed the resident's note and discussed the case with the resident. I agree with the resident's findings and plan as documented. SUBJECTIVE: No fever or chills. still has abd pain. no fever . OBJECTIVE: NAD, more awake today, and more cooperative HEENT:scaly skin and telengactasia and erythema on forehead, nose , cheeks , and chin . No JVd, MMM. CV: RRR, no MRG Lungs: CTAB Abd: soft, NT. distended.TTP in lower abdomen. NL BS Ext: 2+ on LE. no erythema R groin with excoriated area , with slough ( 1x1 cm ) . ASSESSMENT AND PLAN: 77 y/o man with h/o Alcoholism, HLP, HTN, gout and smoking who presented from [facility] with AMS. He was found ot have acute alcoholic hepatitis and encephalopathy 1- Encephalopathy:improved 2- Acute alcoholic hepatitis: improved 3- Acute pancreatitis : resolved 4- ETOH withdrawal : resolved 5- Liver cirrhosis: chronic 6- Ascitis: s/p paracentesis with removal of 350 cc Plan: - MRCP was canceled initially, due to confusion and inability to do MRI questionnaire. will reorder - cont thiamine and folate daily. - cont with lactulose. - cont prednisone taper, day 2 of 30 mg - cont lasix and spironolactone - Hep B surface Abs indicate immunity - heparin sq - PT eval noted dispo : [facility]
--- NOTE | 2018-01-26 14:04 | PN ---
Physical Exam: SUBJECTIVE: Patient seen and examined, first encounter with patient; seems a little confused ; although as per primary team has much improved. AAOx3. States he fells lightheaded and has abdominal pain. Denies chest pain, sob, blurry vision seeing or hearing things, tremor. OBJECTIVE: Vital Signs Period Temp Pulse Resp BP Sys/Glynn Pulse Ox Last 24 Hr 97.6 F-98.3 F 81-86 18-20 121-157/61-91 97-99 GENERAL: The patient is awake, alert, and slightly lethargic? delayed? HEAD: Normal with no signs of trauma. LUNGS: Breath sounds equal, clear to auscultation bilaterally, no wheezes, no crackles, no accessory muscle use. HEART: Regular rate and rhythm, S1, S2 without murmur, rub or gallop. ABDOMEN: distended with tenderness to palpation LLQ; BS+ EXTREMITIES: 2+ pulses, warm, well-perfused, no edema. 2+pitting edema b/l NEUROLOGICAL: Cranial nerves II through XII grossly intact. speech slow; strenght 5/5 U/L extremities; sensation intact SKIN: Warm, dry, normal turgor, no rashes or lesions noted Laboratory Results - last 24 hr 01/25/18 01/26/18 01/26/18 14:15 06:00 06:00 WBC 14.1 H RBC 2.45 L Hgb 9.1 L Hct 26.9 L MCV 109.4 H MCH 37.2 H MCHC 34.0 RDW 16.7 H Plt Count 163 MPV 9.9 Absolute Neuts (auto) 12.2 H Neutrophils % 86.7 H Neutrophils % (Manual) 83.8 H Band Neutrophils % 2.0 Lymphocytes % 8.4 Lymphocytes % (Manual) 6.1 L D Monocytes % 4.2 Monocytes % (Manual) 4 D Eosinophils % 0.3 Eosinophils % (Manual) 0.0 Basophils % 0.4 Basophils % (Manual) 0.0 Myelocytes % (Man) 3 H D Promyelocytes % (Man) 0 Blast Cells % (Manual) 0 Nucleated RBC % 0 Metamyelocytes 1 D Platelet Estimate Increased PT with INR 15.30 H INR 1.29 H Sodium Potassium Chloride Carbon Dioxide Anion Gap BUN Creatinine Creat Clearance w eGFR Random Glucose Calcium Phosphorus Magnesium Total Bilirubin AST ALT Alkaline Phosphatase Total Protein Albumin Hep Bs Antibody, Quant 217.2 01/26/18 06:00 WBC RBC Hgb Hct MCV MCH MCHC RDW Plt Count MPV Absolute Neuts (auto) Neutrophils % Neutrophils % (Manual) Band Neutrophils % Lymphocytes % Lymphocytes % (Manual) Monocytes % Monocytes % (Manual) Eosinophils % Eosinophils % (Manual) Basophils % Basophils % (Manual) Myelocytes % (Man) Promyelocytes % (Man) Blast Cells % (Manual) Nucleated RBC % Metamyelocytes Platelet Estimate PT with INR INR Sodium 144 Potassium 4.1 Chloride 109 H Carbon Dioxide 28 Anion Gap 7 L BUN 14 Creatinine 0.7 Creat Clearance w eGFR > 60 Random Glucose 81 Calcium 7.7 L Phosphorus 3.7 Magnesium 1.5 L Total Bilirubin 5.3 H AST 118 H ALT 75 H Alkaline Phosphatase 229 H Total Protein 4.9 L Albumin 2.0 L Hep Bs Antibody, Quant Active Medications Generic Name Dose Route Start Last Admin Trade Name Freq PRN Reason Stop Dose Admin Bacitracin 1 applic 01/26/18 13:30 Bacitracin - TP BID RUFINA Folic Acid 1 mg 01/15/18 10:00 01/26/18 11:40 Folic Acid Injection - SQ 1 mg DAILY RUFINA Administration Furosemide 40 mg 01/25/18 10:00 01/26/18 09:25 Lasix - PO 40 mg DAILY RUFINA Administration Haloperidol 5 mg 01/15/18 16:54 Haldol Injection (Fast Acting) - IM ONCE PRN AGITATION Heparin Sodium (Porcine) 5,000 unit 01/16/18 10:00 01/26/18 06:05 Heparin - SQ 5,000 unit TID RUFINA Administration Lactulose 30 gm 01/24/18 22:00 01/26/18 06:05 Cephulac (Oral Use) PO 30 gm TID RUFINA Administration Multi-Ingredient Ointment 1 applic 01/26/18 13:30 Zinc Oxide TP BID RUFINA Pantoprazole Sodium 40 mg 01/23/18 10:00 01/26/18 09:25 Protonix - PO 40 mg DAILY RUFINA Administration Potassium Chloride 20 meq 01/24/18 11:15 01/26/18 09:25 K-Dur - PO 20 meq DAILY RUFINA Administration Prednisone 30 mg 01/25/18 08:45 01/26/18 09:25 Deltasone - PO 30 mg DAILY RUFINA Administration Rifaximin 550 mg 01/19/18 22:00 01/26/18 09:26 Xifaxan - PO 550 mg BID RUFINA Administration Spironolactone 100 mg 01/25/18 10:00 01/26/18 09:24 Aldactone - PO 100 mg DAILY RUFINA Administration Thiamine HCl 100 mg 01/25/18 10:00 01/26/18 09:25 Vitamin B1 - PO 100 mg DAILY RUFINA Administration ASSESSMENT/PLAN: This is a 77 year old male with a history of alcohol abuse and liver cirrhosis , sent over from [facility] due to altered mental status, found to have acute alcoholic encephalopathy #encephalopathy sec to acute alcoholic hepatitis with liver cirhosis -mental status is improving -continue lactulose for 2-3 BMs per day; monitor clinically -cont rifaximin -cont prednisone taper -thiamine and folate supplement -lasix -spironolactone -paracentesis fluid analysis; no SBP; leucoytosis most likely secondary to steroid -immune to hep B #acute pancreatitis: resolving -MRCP w/ wo contrast to r/o stone/obstruction -GI appreciated #alcohol withdrawl; detoxed -continue alcohol cessation #irritation inguinal: -zing oxide/bacitracin VTE ppl ; heparin sq Visit type - Emergency Visit Emergency Visit: Yes ED Registration Date: 01/14/18 Care time: The patient presented to the Emergency Department on the above date and was hospitalized for further evaluation of their emergent condition. - New Patient This patient is new to me today: Yes Date on this admission: 01/26/18 - Critical Care Critical Care patient: No
[2018-01-26] MEDS: BACITRACIN 15 GM TUBE TOPICAL OINTMENT TP SCH ×2 (14:58→21:07)
[2018-01-26] MEDS: ZINC OXIDE 20% TOPICAL OINTMENT 30 GM TUBE TP SCH ×2 (15:18→21:07)
[2018-01-26 17:43] LABS: URINE APPEARANCE CLEAR; URINE BILIRUBIN NEGATIVE (<2.0 mg/dL); URINE COLOR YELLOW; URINE GLUCOSE (UA) NEGATIVE (NEGATIVE); URINE KETONE NEGATIVE (NEGATIVE); URINE LEUK ESTERASE NEGATIVE (NEGATIVE); URINE NITRITE NEGATIVE (NEGATIVE); URINE PROTEIN NEGATIVE (NEGATIVE); URINE UROBILINOGEN NEGATIVE mg/dL (0.2-1.0)
[2018-01-27] MEDS: HEPARIN NA (PORCINE) 5,000 UNITS/ML 1ML VIAL SQ SCH ×3 (06:14→23:17)
[2018-01-27] MEDS: LACTULOSE 20 GM/30 ML UDC (FOR ORAL USE ONLY) PO SCH ×3 (06:14→23:17)
[2018-01-27 07:31] LABS: BASO % 0.7 % (0-2.0); EOS % 0.7 % (0-4.5); HEMATOCRIT 30.3 % (35.4-49); HEMOGLOBIN 9.6 GM/dL (11.7-16.9); LYMPH % 8.5 % (8-40); MCH 35.4 pg (25.7-33.7); MCHC 31.7 g/dl (32.0-35.9); MEAN CELL VOLUME 111.4 fl (80-96); MEAN PLT VOLUME 9.7 fl (7.5-11.1); MONO % 4.2 % (3.8-10.2); NEUT % 85.9 % (42.8-82.8); PLATELET COUNT 157 K/MM3 (134-434); RBC 2.72 M/mm3 (4.00-5.60); RDW 16.8 % (11.9-15.9); WHITE BLOOD COUNT 16.2 K/mm3 (4.0-10.0)
[2018-01-27 07:58] LABS: ALK PHOS 235 U/L (45-117); ANION GAP 8 MMOL/L (8-16); BILIRUBIN,TOTAL 4.4 mg/dL (0.2-1); BLOOD UREA NITROGEN 16 mg/dL (7-18); CALCIUM 7.6 mg/dL (8.5-10.1); CHLORIDE 107 mmol/L (98-107); CO2 30 mmol/L (21-32); CREATININE 0.8 mg/dL (0.55-1.3); GLUCOSE,RANDOM 84 mg/dL (74-106); MAGNESIUM 1.4 mg/dL (1.8-2.4); PHOSPHOROUS 2.8 mg/dL (2.5-4.9); POTASSIUM 3.2 mmol/L (3.5-5.1); SGOT/AST 107 U/L (15-37); SGPT/ALT 74 U/L (13-61); SODIUM 145 mmol/L (136-145); TOT PROT 4.8 g/dl (6.4-8.2)
[2018-01-27] MEDS: FUROSEMIDE 40 MG TABLET (FP) PO SCH (09:46)
[2018-01-27] MEDS: POTASSIUM CHLORIDE TABS 20 MEQ TABLET.ER (FP) PO SCH (09:46)
[2018-01-27] MEDS: predniSONE 10 MG TABLET (UD) PO SCH (09:46)
[2018-01-27] MEDS: PANTOPRAZOLE 40 MG TABLET (FP) PO SCH (09:47)
[2018-01-27] MEDS: THIAMINE HCL 100 MG TABLET (FP) PO SCH (09:47)
[2018-01-27] MEDS: BACITRACIN 15 GM TUBE TOPICAL OINTMENT TP SCH ×2 (09:48→23:21)
[2018-01-27] MEDS: SPIRONOLACTONE 25 MG TABLET (FP) PO SCH (09:48)
[2018-01-27] MEDS: ZINC OXIDE 20% TOPICAL OINTMENT 30 GM TUBE TP SCH ×2 (09:49→23:20)
[2018-01-27 09:55] LABS: ANISOCYTOSIS 1+; MACROCYTOSIS 1+; PLATELET ESTIMATE DECREASED
[2018-01-27] MEDS: FOLIC ACID 5 MG/1 ML SQ SCH (12:15)
[2018-01-27] MEDS ORDERED: POTASSIUM CHLORIDE TABS 20 MEQ TABLET.ER (FP) PO ONE (12:37)
[2018-01-27] MEDS ORDERED: POTASSIUM CHLORIDE TABS 20 MEQ TABLET.ER (FP) PO SCH (12:38)
--- NOTE | 2018-01-27 12:43 | PN ---
Progress Note (short form) - Note Progress Note: Subjective: denies pain, no fever or chills, no SOB. Objective: Vital Signs: Last Vital Signs Temp Pulse Resp BP Pulse Ox 97.9 F 85 20 128/69 99 01/26/18 22:00 01/26/18 22:00 01/26/18 22:00 01/26/18 22:00 01/26/18 20:13 Laboratory Results - last 24 hr 01/26/18 01/26/18 01/27/18 06:00 14:15 06:15 WBC 16.2 H RBC 2.72 L Hgb 9.6 L Hct 30.3 L MCV 111.4 H MCH 35.4 H MCHC 31.7 L RDW 16.8 H Plt Count 157 MPV 9.7 Absolute Neuts (auto) 13.9 H Neutrophils % 85.9 H Neutrophils % (Manual) 83.8 H 82.3 Band Neutrophils % 2.0 3.9 Lymphocytes % 8.5 Lymphocytes % (Manual) 6.1 L D 8.8 D Monocytes % 4.2 Monocytes % (Manual) 4 D 2 L Eosinophils % 0.7 D Eosinophils % (Manual) 0.0 0.0 Basophils % 0.7 Basophils % (Manual) 0.0 0.0 Myelocytes % (Man) 3 H D 2 D Promyelocytes % (Man) 0 0 Blast Cells % (Manual) 0 0 Nucleated RBC % 0 Metamyelocytes 1 D 0 D Hypochromia 0 Platelet Estimate Increased Decreased Polychromasia 1+ Poikilocytosis 0 Anisocytosis 1+ Microcytosis 0 Macrocytosis 1+ Sodium Potassium Chloride Carbon Dioxide Anion Gap BUN Creatinine Creat Clearance w eGFR Random Glucose Calcium Phosphorus Magnesium Total Bilirubin AST ALT Alkaline Phosphatase Total Protein Albumin Urine Color Yellow Urine Appearance Clear Urine pH 5.0 D Ur Specific [place] 1.009 L Urine Protein Negative Urine Glucose (UA) Negative Urine Ketones Negative Urine Blood Negative Urine Nitrite Negative Urine Bilirubin Negative Urine Urobilinogen Negative Ur Leukocyte Esterase Negative 01/27/18 06:15 WBC RBC Hgb Hct MCV MCH MCHC RDW Plt Count MPV Absolute Neuts (auto) Neutrophils % Neutrophils % (Manual) Band Neutrophils % Lymphocytes % Lymphocytes % (Manual) Monocytes % Monocytes % (Manual) Eosinophils % Eosinophils % (Manual) Basophils % Basophils % (Manual) Myelocytes % (Man) Promyelocytes % (Man) Blast Cells % (Manual) Nucleated RBC % Metamyelocytes Hypochromia Platelet Estimate Polychromasia Poikilocytosis Anisocytosis Microcytosis Macrocytosis Sodium 145 Potassium 3.2 L Chloride 107 Carbon Dioxide 30 Anion Gap 8 BUN 16 Creatinine 0.8 Creat Clearance w eGFR > 60 Random Glucose 84 Calcium 7.6 L Phosphorus 2.8 Magnesium 1.4 L Total Bilirubin 4.4 H AST 107 H ALT 74 H Alkaline Phosphatase 235 H Total Protein 4.8 L Albumin 2.0 L Urine Color Urine Appearance Urine pH Ur Specific [place] Urine Protein Urine Glucose (UA) Urine Ketones Urine Blood Urine Nitrite Urine Bilirubin Urine Urobilinogen Ur Leukocyte Esterase Physical Exam: NAD, awake ,cooperative HEENT:scaly skin and telengactasia and erythema on forehead, nose , cheeks , and chin . No JVd, MMM. CV: RRR, no MRG Lungs: CTAB Abd: soft, distended.TTP in lower abdomen. NL BS Ext: 2+ on LE. no erythema R groin with excoriated area , with slough ( 1x1 cm ) stable compared to yesterday . ASSESSMENT AND PLAN: 77 y/o man with h/o Alcoholism, HLP, HTN, gout and smoking who presented from [facility] with AMS. He was found ot have acute alcoholic hepatitis and encephalopathy 1- Encephalopathy:improved 2- Acute alcoholic hepatitis: improved 3- Acute pancreatitis : resolved 4- ETOH withdrawal : resolved 5- Liver cirrhosis: chronic 6- Ascitis: s/p paracentesis with removal of 350 cc Plan: - patient can't fill MRI questionnaire , cancel MRI. - cont thiamine and folate daily. - cont lactulose. - cont prednisone taper, day 3 of 30 mg , will decrease to 20 mg daily - cont lasix and spironolactone - heparin sq - PT - replete Mg and K Visit type - Emergency Visit Emergency Visit: Yes ED Registration Date: 01/14/18 Care time: The patient presented to the Emergency Department on the above date and was hospitalized for further evaluation of their emergent condition. - New Patient This patient is new to me today: No - Critical Care Critical Care patient: No
[2018-01-27] MEDS: MAGNESIUM OXIDE 400 MG TABLET (FP) PO SCH ×2 (13:52→23:18)
[2018-01-27 14:38] VITALS: BMI 28.9
[2018-01-28] MEDS: LACTULOSE 20 GM/30 ML UDC (FOR ORAL USE ONLY) PO SCH (06:04)
[2018-01-28] MEDS: HEPARIN NA (PORCINE) 5,000 UNITS/ML 1ML VIAL SQ SCH ×2 (06:04→14:50)
--- NOTE | 2018-01-28 07:46 | PN ---
Physical Exam: SUBJECTIVE: Patient seen and examined at bedside. Per nurse, no acute events overnight. Afebrile. Pt denies headache/dizziness, n/v, chest pain, sob, abd pain. Pt is ambulating. OBJECTIVE: Vital Signs Temperature 98.3 F 01/28/18 05:42 Pulse Rate 72 01/28/18 05:42 Respiratory Rate 20 01/28/18 05:42 Blood Pressure 137/71 01/28/18 05:42 O2 Sat by Pulse Oximetry (%) 96 01/27/18 21:00 GENERAL: Awake and alert. NAD. HEENT: AT/NC. EOMI. SB. Moist mucus membranes. NECK: Trachea midline, full range of motion, supple. LUNGS: CTA B/L. No wheezes noted. HEART: Regular rate and rhythm, S1, S2 without murmur, rub or gallop. ABDOMEN: Soft, nontender, nondistended, normoactive bowel sounds, no guarding, no rebound, no hepatosplenomegaly, no masses. EXTREMITIES: 2+ pulses, warm, well-perfused, no edema. 5/5 muscle strength b/l u /l extremities. NEUROLOGICAL: B/l sensation intact. Responds to commands. PSYCH: Normal mood, normal affect. SKIN: Warm, dry, normal turgor, no rashes or lesions noted CBCD WBC 16.2 K/mm3 (4.0-10.0) H 01/27/18 06:15 RBC 2.72 M/mm3 (4.00-5.60) L 01/27/18 06:15 Hgb 9.6 GM/dL (11.7-16.9) L 01/27/18 06:15 Hct 30.3 % (35.4-49) L 01/27/18 06:15 MCV 111.4 fl (80-96) H 01/27/18 06:15 MCHC 31.7 g/dl (32.0-35.9) L 01/27/18 06:15 RDW 16.8 % (11.9-15.9) H 01/27/18 06:15 Plt Count 157 K/MM3 (134-434) 01/27/18 06:15 MPV 9.7 fl (7.5-11.1) 01/27/18 06:15 CMP Sodium 145 mmol/L (136-145) 01/27/18 06:15 Potassium 3.2 mmol/L (3.5-5.1) L 01/27/18 06:15 Chloride 107 mmol/L (98-107) 01/27/18 06:15 Carbon Dioxide 30 mmol/L (21-32) 01/27/18 06:15 Anion Gap 8 MMOL/L (8-16) 01/27/18 06:15 BUN 16 mg/dL (7-18) 01/27/18 06:15 Creatinine 0.8 mg/dL (0.55-1.3) 01/27/18 06:15 Creat Clearance w eGFR > 60 (>60) 01/27/18 06:15 Calcium 7.6 mg/dL (8.5-10.1) L 01/27/18 06:15 Total Bilirubin 4.4 mg/dL (0.2-1) H 01/27/18 06:15 AST 107 U/L (15-37) H 01/27/18 06:15 ALT 74 U/L (13-61) H 01/27/18 06:15 Alkaline Phosphatase 235 U/L (45-117) H 01/27/18 06:15 Total Protein 4.8 g/dl (6.4-8.2) L 01/27/18 06:15 Albumin 2.0 g/dl (3.4-5.0) L 01/27/18 06:15 Active Medications Bacitracin (Bacitracin -) 1 applic TP BID [facility] Last Admin: 01/27/18 23:21 Dose: 1 applic Folic Acid (Folic Acid Injection -) 1 mg SQ DAILY RUFINA Last Admin: 01/27/18 12:15 Dose: 1 mg Furosemide (Lasix -) 40 mg PO DAILY RUFINA Last Admin: 01/27/18 09:46 Dose: 40 mg Heparin Sodium (Porcine) (Heparin -) 5,000 unit SQ TID RUFINA Last Admin: 01/28/18 06:04 Dose: 5,000 unit Lactulose (Cephulac (Oral Use)) 30 gm PO TID RUFINA Last Admin: 01/28/18 06:04 Dose: 30 gm Magnesium Oxide (Mag-Ox -) 400 mg PO BID RUFINA Last Admin: 01/27/18 23:18 Dose: 400 mg Multi-Ingredient Ointment (Zinc Oxide) 1 applic TP BID RUFINA Last Admin: 01/27/18 23:20 Dose: 1 applic Pantoprazole Sodium (Protonix -) 40 mg PO DAILY [facility] Last Admin: 01/27/18 09:47 Dose: 40 mg Potassium Chloride (K-Dur -) 40 meq PO DAILY [facility] Prednisone (Deltasone -) 20 mg PO DAILY [facility] Spironolactone (Aldactone -) 100 mg PO DAILY [facility] Last Admin: 01/27/18 09:48 Dose: 100 mg Thiamine HCl (Vitamin B1 -) 100 mg PO DAILY [facility] Last Admin: 01/27/18 09:47 Dose: 100 mg ASSESSMENT/PLAN: 77M w/ pmhx of history of alcohol abuse and liver cirrhosis, sent over from [facility] due to altered mental status, found to have acute alcoholic encephalopathy #Hepatic encephalopathy 2/2 cirrhosis and benzodiazepine usage -Mental status is improving -hold Lactulose for now, monitor clinically. -cont Rifaximin -cont Prednisone taper, 20 mg PO QD -Thiamine 100 mg PO QD, KCl 40 meq PO QD, Folic acid 1 mg SQ QD -Lasix 40 PO QD -Spironolactone 100 mg PO QD -paracentesis fluid analysis; no SBP; leukocytosis most likely secondary to steroid -immune to hep B -PT #Acute Alcoholic Hepatitis -improved #Acute Pancreatitis; resolved. -MRI canceled as pt is unable to fill out MRI questionnaire. May need outpatient follow up/ -GI appreciated #Alcohol withdrawal; detoxed. -Alcohol cessation counseling #irritation inguinal: -Zinc oxide/bacitracin #Prophylaxis DVT: Heparin 5000U SQ TID GI: Protonix 40 mg PO QD FEN -no IVf -recheck lytes in AM (K, Mg) -Soft diet with thin liquids dispo -
[2018-01-28] MEDS ORDERED: PT OWN MED DRAWER 7, Y5N ONE (09:08)
[2018-01-28] MEDS: MAGNESIUM OXIDE 400 MG TABLET (FP) PO SCH (09:29)
[2018-01-28] MEDS: PANTOPRAZOLE 40 MG TABLET (FP) PO SCH (09:29)
[2018-01-28] MEDS: FUROSEMIDE 40 MG TABLET (FP) PO SCH (09:29)
[2018-01-28] MEDS: BACITRACIN 15 GM TUBE TOPICAL OINTMENT TP SCH (09:30)
[2018-01-28] MEDS: THIAMINE HCL 100 MG TABLET (FP) PO SCH (09:30)
[2018-01-28] MEDS: SPIRONOLACTONE 25 MG TABLET (FP) PO SCH (09:30)
[2018-01-28] MEDS ORDERED: predniSONE 10 MG TABLET (UD) PO SCH (10:00)
[2018-01-28] MEDS ORDERED: POTASSIUM CHLORIDE ORAL LIQUID 20 MEQ/15 ML PO ONE (10:56)
[2018-01-28 11:09] LABS: BASO % 0.3 % (0-2.0); EOS % 0.7 % (0-4.5); HEMATOCRIT 32.7 % (35.4-49); HEMOGLOBIN 10.1 GM/dL (11.7-16.9); LYMPH % 5.9 % (8-40); MCH 34.9 pg (25.7-33.7); MEAN CELL VOLUME 112.6 fl (80-96); MEAN PLT VOLUME 9.4 fl (7.5-11.1); MONO % 4.7 % (3.8-10.2); NEUT % 88.4 % (42.8-82.8); PLATELET COUNT 186 K/MM3 (134-434); RBC 2.91 M/mm3 (4.00-5.60); RDW 16.8 % (11.9-15.9); WHITE BLOOD COUNT 21.3 K/mm3 (4.0-10.0)
[2018-01-28 11:38] LABS: ALBUMIN 2.2 g/dl (3.4-5.0); ALK PHOS 262 U/L (45-117); ANION GAP 7 MMOL/L (8-16); BILIRUBIN,TOTAL 4.8 mg/dL (0.2-1); BLOOD UREA NITROGEN 15 mg/dL (7-18); CALCIUM 8.3 mg/dL (8.5-10.1); CHLORIDE 105 mmol/L (98-107); CO2 31 mmol/L (21-32); CREATININE 1.1 mg/dL (0.55-1.3); GLUCOSE,RANDOM 93 mg/dL (74-106); MAGNESIUM 1.5 mg/dL (1.8-2.4); PHOSPHOROUS 3.2 mg/dL (2.5-4.9); POTASSIUM 3.7 mmol/L (3.5-5.1); SGOT/AST 127 U/L (15-37); SGPT/ALT 79 U/L (13-61); SODIUM 143 mmol/L (136-145); TOT PROT 5.3 g/dl (6.4-8.2)
[2018-01-28] MEDS: FOLIC ACID 5 MG/1 ML SQ SCH (13:12)
[2018-01-28 13:28] VITALS: BP 132/72; PULSE 72; TEMP 97.3
--- NOTE | 2018-01-28 13:36 | PN ---
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 Pt seems to be tolerating diet that he accepts. Frequently sleeping. Limited cooperation.
[2018-01-28] MEDS ORDERED: MAGNESIUM OXIDE 400 MG TABLET (FP) PO ONE (13:47)
--- NOTE | 2018-01-28 13:54 | PN ---
Teaching Attending Note Name of Resident: Ale Story (\) ATTENDING PHYSICIAN STATEMENT I saw and evaluated the patient. I reviewed the resident's note and discussed the case with the resident. I agree with the resident's findings and plan as documented. SUBJECTIVE: No fever or chills . has RLQ abd pain. no N/V OBJECTIVE: NAD, awake ,cooperative, knows location and HEENT:scaly skin and telengactasia and erythema on forehead, nose , cheeks , and chin . No JVd, MMM. CV: RRR, no MRG Lungs: CTAB Abd: soft, distended.TTP in lower abdomen. NL BS Ext: 2+ on LE. no erythema ASSESSMENT AND PLAN: 77 y/o man with h/o Alcoholism, HLP, HTN, gout and smoking who presented from [facility] with AMS. He was found ot have acute alcoholic hepatitis and encephalopathy 1- Encephalopathy: improved 2- Acute alcoholic hepatitis: improved 3- Acute pancreatitis : resolved 4- ETOH withdrawal : resolved 5- Liver cirrhosis: chronic 6- Ascitis: s/p paracentesis with removal of 350 cc Plan: - mental status improved. - cont thiamine and folate daily. - cont lactulose.decrease to once daily had 5 BMs yesterday . after dc goal is 3 BMs a day - cont prednisone taper, day 1 of 20 mg , cont taper after dc - cont lasix and spironolactone - PT - replete Mg and K . cont supplements after dc - leukocytosis is probably due to steroids Dispo: dc to rehab today.
--- NOTE | 2018-01-28 14:47 | DS ---
Physical Exam: SUBJECTIVE: Patient seen and examined at bedside. No acute events overnight. OBJECTIVE: Vital Signs Period Temp Pulse Resp BP Sys/Glynn Pulse Ox Last 24 Hr 97.3 F-98.6 F 72-91 18-20 100-149/65-77 96-96 PHYSICAL EXAM GENERAL: Awake and alert. NAD. HEENT: AT/NC. EOMI. SB. Moist mucus membranes. NECK: Trachea midline, full range of motion, supple. LUNGS: CTA B/L. No wheezes noted. HEART: Regular rate and rhythm, S1, S2 without murmur, rub or gallop. ABDOMEN: Soft, nontender, nondistended, normoactive bowel sounds, no guarding, no rebound, no hepatosplenomegaly, no masses. EXTREMITIES: 2+ pulses, warm, well-perfused, no edema. 5/5 muscle strength b/l u /l extremities. NEUROLOGICAL: B/l sensation intact. Responds to commands. PSYCH: Normal mood, normal affect. SKIN: Warm, dry, normal turgor, no rashes or lesions noted LABS Laboratory Results - last 24 hr 01/28/18 01/28/18 10:25 10:25 WBC 21.3 H RBC 2.91 L Hgb 10.1 L Hct 32.7 L MCV 112.6 H MCH 34.9 H MCHC 31.0 L RDW 16.8 H Plt Count 186 MPV 9.4 Absolute Neuts (auto) 18.8 H Neutrophils % 88.4 H Lymphocytes % 5.9 L D Monocytes % 4.7 Eosinophils % 0.7 Basophils % 0.3 Nucleated RBC % 0 Sodium 143 Potassium 3.7 Chloride 105 Carbon Dioxide 31 Anion Gap 7 L BUN 15 Creatinine 1.1 Creat Clearance w eGFR > 60 Random Glucose 93 Calcium 8.3 L Phosphorus 3.2 Magnesium 1.5 L Total Bilirubin 4.8 H AST 127 H ALT 79 H Alkaline Phosphatase 262 H Total Protein 5.3 L Albumin 2.2 L HOSPITAL COURSE: Date of Admission:01/14/18 IMAGING: * CT chest and CTAP: showed pulm and paravertebral nodules, b/l interstitial thickening, mild R basilar opacity, mild peripancreatic soft tissue edema suggestive of pancreatitis, hepatic steatosis, probably cirrhosis. * Head CT: No definite CT evidence of IC pathology. 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 Generalized cerebral atrophy. * Abd U/S: Development of ascites seen within abd and pelvis which is at least moderate volume. Prominent diffuse hepatic steatosis w/ probably cirrhosis. 77M w/ pmhx of EtOH abuse, HTN, HLD, gout sent to [facility] from [facility] (began alcohol detox 3 days prior to admission) due to AMS. In the ED, on exam, pt was found to be tremulous, diaphoretic with fluctuating consciousness and reported auditory hallucinations. Utox + for benzos, elevated LFTs, and T bili. CT head was unremarkable. CT chest showed an incidental finding of small lung nodule. On CTAP, pt was found to have probable cirrhosis with findings suggestive of pancreatitis. He was given IVf, vanc/zosyn, Mg. During his hospital stay, pt was treated for alcoholic hepatitis. Ammonia level was found to be elevated. GI was consulted. Due to pt's hepatic encephalopathy, NG tube was placed. Pt was given lactulose, rifamixin, thiamine, folate, prednisone. Abd U/s was done that showed ascites and gallstones after which a paracentesis was subsequently done. Ascites fluid did not show sign of infection. Pt was then started on Lasix and spironolactone. Throughout the hospital stay, pt's hepatic encephalopathy improved and his mental status improved back to baseline; NG tube was removed. His pancreatitis was also resolved. Pt was discharged to a SNF for continuation of care and advised to continue his Prednisone taper, lactulose, Spironolactone , thiamine, KCl, Mag ox, and Lasix. Pt was also given recommendation to follow up with his PCP, and GI doctor for further evaluation of the liver. Date of Discharge: 01/28/18 Minutes to complete discharge: 30 Discharge Summary Reason For Visit: ALCOHOL DEPENDENCE WITH UNCOMPLICATED WITHDRAWAL Current Active Problems Alcohol dependence with uncomplicated withdrawal (Acute) Alcohol use disorder (Chronic) Alcoholic cirrhosis of liver without ascites (Chronic) Alcoholic liver disease (Chronic) Condition: Improved - Instructions Diet, Activity, Other Instructions: You were sent by [facility] and evaluated for altered mental status. In the hospital, you were found to have inflammation of your liver and pancreas due to chronic alcohol use. Throughout your hospital stay, your symptoms improved. It is extremely important that you stop drinking alcohol as it can cause further complications associated with your liver and pancreas. Please also avoid taking benzodiazepines as this can affect your mental status and cause respiratory depression. You are being discharged to a shelter facility. MEDICAL RECOMMENDATIONS You are being prescribed steroids to treat inflammation of your liver and pancreas. Please continue taking your Prednisone tapered dose: Take Prednisone 20 mg once by mouth on 01/29. Take Prednisone 20 mg once by mouth on 01/30. Take Prednisone 10 mg once by mouth on 01/31. Take Prenidsone 10 mg once by mouth on 02/01. Take Prednisone 10 mg once by mouth on 02/02. Additionally, please continue taking the following medications: Lactulose 30 gm by mouth daily. You may increase this medication up to three times a day to reach a goal of 3 bowel movements daily. Spironolactone 100 mg by mouth daily. Thiamine (Vitamin B1) 100 mg by mouth daily. Potassium Chloride 20 mg by mouth daily Magnesium Oxide 400 mg by mouth twice a day. Lasix 40 mg by mouth daily. CONSULT RECOMMENDATIONS Please follow up with your primary care physician within 1 week. You may also follow up at the residency clinic, [facility]. You may make an appointment to see Dr. Story, available every Sunday afternoon from 1-4pm. follow with GI , Dr. Gorman for you r liver . it is important If you experience altered mental status, worsening chest pain, shortness of breath, persistent abdominal pain, please proceed to your nearest emergency room immediately. need CBC, BMP, Liver function test in 1 week Referrals: [facility] [place] [Provider Group] - 1 Week (See Dr Story) Ale Story, YVONNE [Resident] - 1 Week Olga Mendoza MD [Primary Care Provider] - 1 Week Disposition: ALF FACILITY - Home Medications Comprehensive Discharge Medication List: Ambulatory Orders Folic Acid - 1 mg PO DAILY #30 tablet 01/28/18 Furosemide [Lasix -] 40 mg PO DAILY tablet 01/28/18 Lactulose (Oral Use) [Cephulac -] 30 gm PO DAILY #3 bottle 01/28/18 Magnesium Oxide [Mag-Ox -] 400 mg PO BID tablet 01/28/18 Pantoprazole Sodium [Protonix -] 40 mg PO DAILY tablet.ec 01/28/18 Potassium Chloride [K-Dur -] 20 meq PO DAILY tablet.er 01/28/18 Spironolactone [Aldactone -] 100 mg PO DAILY tablet 01/28/18 Thiamine HCl [Vitamin B1 -] 100 mg PO DAILY tablet 01/28/18 predniSONE [Deltasone -] See Taper PO DAILY tablet 01/28/18 This patient is new to me today: Yes Date on this admission: 01/28/18 Emergency Visit: Yes ED Registration Date: 01/14/18 Care time: The patient presented to the Emergency Department on the above date and was hospitalized for further evaluation of their emergent condition. Critical Care patient: No - Discharge Referral Referred to [facility] Med [facility] No
[2018-01-28] MEDS: ZINC OXIDE 20% TOPICAL OINTMENT 30 GM TUBE TP SCH (14:50)
[2018-01-28 15:39] LABS: ANISOCYTOSIS 2+; MACROCYTOSIS 0; PLATELET ESTIMATE NORMAL
== END 2018-01-28 18:23 | DRG 432 ==
LOC: JER 17:36 → JERBED 23:09 → J7W 01-15 07:35
PROVIDERS: ADMIT Internal Medicine; ATTEND Internal Medicine
PROC: 06HM33Z Insertion of Infusion Device into Right Femoral Vein, Percutaneous Approach (ICD-10-PCS; 2018-01-16)
PROC: B54BZZA Ultrasonography of Right Lower Extremity Veins, Guidance (ICD-10-PCS; 2018-01-16)
PROC: 0W9G3ZX Drainage of Peritoneal Cavity, Percutaneous Approach, Diagnostic (ICD-10-PCS; principal; 2018-01-23)
DX: K70.31 Alcoholic cirrhosis of liver with ascites (principal); K85.20 Alcohol induced acute pancreatitis without necrosis or infection; F10.230 Alcohol dependence with withdrawal, uncomplicated; E51.2 Wernicke's encephalopathy; K86.0 Alcohol-induced chronic pancreatitis; I10 Essential (primary) hypertension; E78.5 Hyperlipidemia, unspecified; M10.9 Gout, unspecified; E88.09 Other disorders of plasma-protein metabolism, not elsewhere classified; R91.1 Solitary pulmonary nodule; K70.10 Alcoholic hepatitis without ascites; R74.0 Nonspecific elevation of levels of transaminase and lactic acid dehydrogenase [LDH]; R16.0 Hepatomegaly, not elsewhere classified; L29.9 Pruritus, unspecified; Z59.0 Homelessness; K72.90 Hepatic failure, unspecified without coma; E80.6 Other disorders of bilirubin metabolism
CPT/HCPCS: 36415; 70450-TC; 71045-TC-FY; 71260-TC; 74018-TC-FY; 74177-TC; 74230-TC-FY; 76700-TC; 76705-TC; 76942-TC; 80053; 80061; 80074; 80076; 80307; 81003; 81015; 82042; 82105; 82140; 82150; 82248; 82728; 82803; 82945; 83516; 83540; 83550; 83605; 83615; 83690; 83721; 83735; 83880; 83986; 84100; 84157; 85025; 85027; 85610; 85730; 86038; 86317; 86803; 86850; 86900; 86901; 87040; 87070; 87075; 87086; 87102; 87116; 87186; 87205; 87206; 87210; 88108; 88305-TC; 89051; 92611-GN; 93005; 93010; 93306-TC; 97116-GP; 97161-GP; 99283-25; J1644; J7030